=== PATIENT | female | born 1935 | race Caucasian/White ===

== ENCOUNTER 2016-08-26 13:57 | Emergency (ER) | payer MEDICARE ==
[~2016-08-26] VITALS: Ht 167.6 cm; Wt 45.0 kg
[~2016-08-26 13:57] MED LIST: BACT800T5 PO; DOXY100C PO; DYAZ37.5 PO; FAMO20TA2 PO; HYDR-3533 PO; PLAV75TA29 PO; SYNT25TA PO; TOPA50TA7 PO; WARF-18 PO
[2016-08-26 14:18] VITALS: BP 125/68; PULSE 79; RESP 16; TEMP 97.5; O2SAT 99
[2016-08-26] MEDS ORDERED: SODIUM CHLORIDE 0.9% FLUSH 5 ML FLUSH IVF PRN (14:30)
[2016-08-26 14:32] VITALS: O2SAT 97
[2016-08-26 14:34] LABS: AUTOMATED NEUTROPHIL # 5.9 TH/MM3 (1.8-7.7); BASOPHIL # 0.1 TH/MM3 (0-0.2); BASOPHIL % 0.8 % (0.0-2.0); EOSINOPHIL # 0.1 TH/MM3 (0-0.4); EOSINOPHIL % 0.9 % (0.0-4.0); HEMO FLAGS DIFF FINAL; LYMPH % 25.6 % (9.0-44.0); LYMPHOCYTE # 2.5 TH/MM3 (1.0-4.8); MEAN CELL VOLUME 89.5 FL (80.0-100.0); MEAN CORPUSCULAR HEMOGLOBIN 29.5 PG (27.0-34.0); MONO % 10.1 % (0.0-8.0); NEUT % 62.6 % (16.0-70.0); PLATELET COUNT 284 TH/MM3 (150-450); RED BLOOD COUNT 5.14 MIL/MM3 (4.00-5.30); RED CELL DISTRIBUTION WIDTH 12.3 % (11.6-17.2); WHITE BLOOD COUNT 9.6 TH/MM3 (4.0-11.0)
[2016-08-26 14:39] LABS: BLOOD, URINE NEG (NEG); GLUCOSE,URINE NEG (NEG); KETONE, URINE NEG (NEG); NITRITE,URINE NEG (NEG)
[2016-08-26 14:40] LABS: METHOD OF COLLECTION CLEAN CATCH; URINE COLOR YELLOW (YELLW/STRAW)
[2016-08-26 14:42] LABS: CHLORIDE 106 MEQ/L (98-107); POTASSIUM 3.4 MEQ/L (3.5-5.1); SODIUM (NA) 139 MEQ/L (136-145)
[2016-08-26 14:43] LABS: BACTERIA, URINE OCC /hpf; COMMENT (UR) CULT NOT INDICATED; CULTURE IF INDICATED CULT NOT INDICATED; SQUAMOUS EPITHELIAL CELL URINE 0-5 /hpf (0-5)
--- NOTE | 2016-08-26 14:44 | PD ---
HPI . Right side pain Chief Complaint: Abdominal Pain Time Seen by Provider: 14:14 Travel History International Travel<30 days: No Contact w/Intl Traveler<30days: No Traveled to known affect area: No History of Present Illness HPI Patient presents with right flank pain which has been present for about 3 days. She saw her PMD for same today and was sent to us for further evaluation. She describes a stabbing, fleeting pain in her right flank. She states that the pain takes her breath away. Otherwise, she is not short of breath. She has noted no exacerbating or relieving factors. She states that she took a Lortab earlier today with no relief of her symptoms. PFSH Past Medical History Hx Anticoagulant Therapy: Yes (COUMADIN; PLAVIX) Cancer: No Cardiovascular Problems: Yes (STENT, PAST DVT, PERRY? ) High Cholesterol: Yes Diabetes: No Diminished Hearing: No Endocrine: Yes Gastrointestinal Disorders: Yes (NOLASCO'S ESOPHOGUS) Genitourinary: No Hepatitis: No Hiatal Hernia: No Hypertension: Yes Immune Disorder: Yes (LUPUS) Musculoskeletal: No Neurologic: Yes (BACK INJURY 2012) Psychiatric: Yes (ANXIETY AT TIMES/SITUATIONAL) Reproductive: No Respiratory: No Immunizations Current: Yes Thyroid Disease: Yes ?: Not Past Surgical History Abdominal Surgery: Yes (CHOLECYSTECTOMY/" LOTS OF ABD SURGERIES"-UNKNOWN) AICD: No Appendectomy: Yes Cholecystectomy: Yes Eye Surgery: Yes (BILAT CATARACTS) Gynecologic Surgery: Yes (HYSTERECTOMY/HEMMORROIDECTOMY) Hysterectomy: Yes (1966) Joint Replacement: No Pacemaker: No Other Surgery: Yes (3 BOWEL SX. , ESOPHAGEAL SX., GROIN AREA STENTS DUE TO INTESTINAL BLOCKAGES) Social History Alcohol Use: No Tobacco Use: No Substance Use: No Allergies-Medications (Allergen,Severity, Reaction): Coded Allergies: No Known Allergies (Unverified , 08/26/16) Reported Meds & Prescriptions Reported Meds & Active Scripts Active Warfarin 2.5 Mg Tab 2.5 Mg PO DAILY Reported Topamax (Topiramate) 50 Mg Tab 25 Mg PO BID Plavix (Clopidogrel Bisulfate) 75 Mg Tab 75 Mg PO DAILY Review of Systems Respiratory: Positive: Shortness of Breath (shortness of breath only when she has the pain in the right flank area) Gastrointestinal: Positive: Other (right flank pain) Physical Exam Narrative GENERAL: Elderly woman who does not appear to be in any acute distress. SKIN: Warm and dry. HEAD: Atraumatic. Normocephalic. EYES: Pupils equal and round. ENT: No nasal bleeding or discharge. Mucous membranes pink and moist. NECK: Trachea midline. CARDIOVASCULAR: Regular rate and rhythm. Heart sounds are normal. RESPIRATORY: No accessory muscle use. Lungs are clear with full air movement throughout. She denies tenderness to palpation of her right chest wall although she does wince when I palpate it. GASTROINTESTINAL: Abdomen soft, non-tender, nondistended. MUSCULOSKELETAL: No obvious deformities. No edema. NEUROLOGICAL: Awake and alert. No obvious cranial nerve deficits. Motor grossly within normal limits. Normal speech. PSYCHIATRIC: Appropriate mood and affect; insight and judgment normal. Data Data Last Documented VS Vital Signs Date Time Temp Pulse Resp B/P Pulse Ox O2 Delivery O2 Flow Rate FiO2 08/26/16 14:32 97 Room Air 08/26/16 14:18 97.5 79 16 125/68 Orders Complete Blood Count With Diff (08/26/16 14:16) Comprehensive Metabolic Panel (08/26/16 14:16) Lipase (08/26/16 14:16) Lactic Acid (08/26/16 14:16) Prothrombin Time / Inr (Pt) (08/26/16 14:16) Urinalysis - C+S If Indicated (08/26/16 14:16) Iv Access Insert/Monitor (08/26/16 14:16) Ecg Monitoring (08/26/16 14:16) Oximetry (08/26/16 14:16) NPO (08/26/16 14:16) Sodium Chloride 0.9% Flush (Ns Flush) (08/26/16 14:30) Electrocardiogram (08/26/16 14:16) Ct Pulmonary Angiogram (08/26/16 14:34) Morphine Inj (Morphine Inj) (08/26/16 14:45) Ondansetron Inj (Zofran Inj) (08/26/16 14:45) Cta Abd/Pel W Iv Contrast W 3d (08/26/16 14:17) Iohexol 350 Inj (Omnipaque 350 Inj) (08/26/16 15:46) Labs Laboratory Tests Test 08/26/16 14:25 White Blood Count 9.6 TH/MM3 Red Blood Count 5.14 MIL/MM3 Hemoglobin 15.2 GM/DL Hematocrit 46.0 % Mean Corpuscular Volume 89.5 FL Mean Corpuscular Hemoglobin 29.5 PG Mean Corpuscular Hemoglobin 33.0 % Concent Red Cell Distribution Width 12.3 % Platelet Count 284 TH/MM3 Mean Platelet Volume 7.6 FL Neutrophils (%) (Auto) 62.6 % Lymphocytes (%) (Auto) 25.6 % Monocytes (%) (Auto) 10.1 % Eosinophils (%) (Auto) 0.9 % Basophils (%) (Auto) 0.8 % Neutrophils # (Auto) 5.9 TH/MM3 Lymphocytes # (Auto) 2.5 TH/MM3 Monocytes # (Auto) 1.0 TH/MM3 Eosinophils # (Auto) 0.1 TH/MM3 Basophils # (Auto) 0.1 TH/MM3 CBC Comment DIFF FINAL Differential Comment Prothrombin Time 14.7 SEC Prothromb Time International 1.3 RATIO Ratio Urine Collection Type CLEAN CATCH Urine Color YELLOW Urine Turbidity CLEAR Urine pH 5.0 Urine Specific [place] 1.019 Urine Protein NEG mg/dL Urine Glucose (UA) NEG mg/dL Urine Ketones NEG mg/dL Urine Occult Blood NEG Urine Nitrite NEG Urine Bilirubin NEG Urine Leukocyte Esterase SMALL Urine WBC 3-5 /hpf Urine Squamous Epithelial 0-5 /hpf Cells Urine Bacteria OCC /hpf Urine Yeast (Budding) FEW Microscopic Urinalysis Comment CULT NOT INDICATED Urine Collection Time 14:25 Sodium Level 139 MEQ/L Potassium Level 3.4 MEQ/L Chloride Level 106 MEQ/L Carbon Dioxide Level 24.5 MEQ/L Anion Gap 9 MEQ/L Blood Urea Nitrogen 25 MG/DL Creatinine 1.00 MG/DL Estimat Glomerular Filtration 53 ML/MIN Rate Random Glucose 67 MG/DL Lactic Acid Level 0.9 mmol/L Calcium Level 9.0 MG/DL Total Bilirubin 0.2 MG/DL Aspartate Amino Transf 21 U/L (AST/SGOT) Alanine Aminotransferase 21 U/L (ALT/SGPT) Alkaline Phosphatase 61 U/L Total Protein 7.8 GM/DL Albumin 3.8 GM/DL Lipase 238 U/L [facility] Medical Decision Making Medical Screen Exam Complete: Yes Emergency Medical Condition: Yes Medical Record Reviewed: Yes (this patient has a history of mesenteric ischemia which is chronic in nature. She also has a history of a previous DVT and SLE. She is chronically anticoagulated.) Interpretation(s) EKG shows a sinus rhythm with a ventricular rate of 78. No ST segment elevation or depression. Differential Diagnosis Differential diagnosis of flank pain includes but is not limited to kidney stone , pyelonephritis, musculoskeletal pain, PE, mesenteric ischemia Narrative Course Patient presents for evaluation of right flank pain. She has been on chronic anticoagulation but was recently off of that because of the procedure. She is now back on her warfarin. However, she now has flank pain. Her INR per her doctor's office was reportedly subtherapeutic at 1.5. CBC & BMP Diagram 08/26/16 14:25 LFTs are normal. Lactic acid is normal at 0.9. UA is suggestive of UTI with positive leukocyte esterase, occasional bacteria and 3-5 white blood cells. Her care is being talked over to the oncoming doctor pending her CT exams. Diagnosis Primary Impression: Right flank pain Additional Impression: UTI (urinary tract infection) Qualified Code: N30.00 - Acute cystitis without hematuria Aure Camacho MD Aug 26, 2016 14:44
[2016-08-26 14:45] LABS: INTERNATIONAL NORMALIZED RATIO 1.3 RATIO; PROTHROMBIN TIME - PATIENT 14.7 SEC (9.8-11.6)
[2016-08-26] MEDS ORDERED: ONDANSETRON HCL 4 MG/2 ML VIAL IV PUSH ONE (14:45)
[2016-08-26] MEDS ORDERED: MORPHINE SULFATE 4 MG/ML INJ IV ONE (14:45)
[2016-08-26 14:46] LABS: ANION GAP 9 MEQ/L (5-15); BICARBONATE 24.5 MEQ/L (21.0-32.0); BLOOD UREA NITROGEN 25 MG/DL (7-18)
[2016-08-26 14:49] LABS: ALT (GPT) 21 U/L (10-53); AST (GOT) 21 U/L (15-37); GLOMERULAR FILTRATION RATE 53 ML/MIN (>89)
[2016-08-26 14:50] LABS: TOTAL BILIRUBIN ADULT 0.2 MG/DL (0.2-1.0)
[2016-08-26 14:52] LABS: ALKALINE PHOSPHATASE 61 U/L (45-117)
[2016-08-26] MEDS ORDERED: IOHEXOL 350 MG/ML 10 ML VIAL (for RAD DIAG) IV ONE (15:46)
[2016-08-26] MEDS ORDERED: cefTRIAXone INJ 1,000 MG in SODIUM CHLORIDE 0.9% INJ 100 ML IV ONE (16:00)
--- NOTE | 2016-08-26 16:05 | RADHPO ---
EXAM DATE/TIME: 08/26/2016 15:16 [facility] COMPARISON: No previous studies available for comparison. INDICATIONS : Right side chest pain. Evaluate embolism. IV CONTRAST: 100 cc Omnipaque 350 (iohexol) IV ; Cumulative dose for multiple exams. RADIATION DOSE: 5.61 CTDIvol (mGy) ; Reconstructed from previous dataset MEDICAL HISTORY : Lupus. SURGICAL HISTORY : Cholecystectomy. Hysterectomy.Small bowel surgeries. Stents. ENCOUNTER: Initial ACUITY: 3 days PAIN SCALE: 8/10 LOCATION: Right middle abdomen TECHNIQUE: Volumetric scanning of the chest was performed using a pulmonary embolism protocol MIP images were re constructed. Using automated exposure control and adjustment of the mA and/or kV according to patien t size, radiation dose was kept as low as reasonably achievable to obtain optimal diagnostic quality images. FINDINGS: No filling defects identified in the pulmonary arteries to suggest pulmonary embolic disease. There i s some scattered parenchymal opacity in the lungs predominantly in the right middle lobe and right mary ng base which could represent some mild inflammatory changes. There is also scattered parenchymal sca rring especially at the apices. No pleural or pericardial effusion. No adenopathy. No acute findings in the upper abdomen. CONCLUSION: 1. Negative for pulmonary moderate disease. Scattered subsegmental opacity right middle lobe and righ t lower lobe that could represent a mild bronchopneumonia. Biapical abnormalities are probably postin flammatory. Boogie Chopra MD on August 26, 2016 at 15:57 Board Certified Radiologist. This report was verified electronically.
[2016-08-26 16:15] VITALS: BP 108/67; PULSE 94; RESP 18; O2SAT 98
--- NOTE | 2016-08-26 16:19 | PD ---
Physical Exam Narrative Patient was seen by ED physician and signed out to me. Data Data Last Documented VS Vital Signs Date Time Temp Pulse Resp B/P Pulse Ox O2 Delivery O2 Flow Rate FiO2 08/26/16 16:15 94 18 108/67 98 Room Air 08/26/16 14:18 97.5 Orders Complete Blood Count With Diff (08/26/16 14:16) Comprehensive Metabolic Panel (08/26/16 14:16) Lipase (08/26/16 14:16) Lactic Acid (08/26/16 14:16) Prothrombin Time / Inr (Pt) (08/26/16 14:16) Urinalysis - C+S If Indicated (08/26/16 14:16) Iv Access Insert/Monitor (08/26/16 14:16) Ecg Monitoring (08/26/16 14:16) Oximetry (08/26/16 14:16) NPO (08/26/16 14:16) Sodium Chloride 0.9% Flush (Ns Flush) (08/26/16 14:30) Electrocardiogram (08/26/16 14:16) Ct Pulmonary Angiogram (08/26/16 14:34) Morphine Inj (Morphine Inj) (08/26/16 14:45) Ondansetron Inj (Zofran Inj) (08/26/16 14:45) Cta Abd/Pel W Iv Contrast W 3d (08/26/16 14:17) Iohexol 350 Inj (Omnipaque 350 Inj) (08/26/16 15:46) Ceftriaxone Inj (Rocephin Inj) (08/26/16 16:00) Levofloxacin (Levaquin) (08/26/16 16:30) Labs Laboratory Tests Test 08/26/16 14:25 White Blood Count 9.6 TH/MM3 Red Blood Count 5.14 MIL/MM3 Hemoglobin 15.2 GM/DL Hematocrit 46.0 % Mean Corpuscular Volume 89.5 FL Mean Corpuscular Hemoglobin 29.5 PG Mean Corpuscular Hemoglobin 33.0 % Concent Red Cell Distribution Width 12.3 % Platelet Count 284 TH/MM3 Mean Platelet Volume 7.6 FL Neutrophils (%) (Auto) 62.6 % Lymphocytes (%) (Auto) 25.6 % Monocytes (%) (Auto) 10.1 % Eosinophils (%) (Auto) 0.9 % Basophils (%) (Auto) 0.8 % Neutrophils # (Auto) 5.9 TH/MM3 Lymphocytes # (Auto) 2.5 TH/MM3 Monocytes # (Auto) 1.0 TH/MM3 Eosinophils # (Auto) 0.1 TH/MM3 Basophils # (Auto) 0.1 TH/MM3 CBC Comment DIFF FINAL Differential Comment Prothrombin Time 14.7 SEC Prothromb Time International 1.3 RATIO Ratio Urine Collection Type CLEAN CATCH Urine Color YELLOW Urine Turbidity CLEAR Urine pH 5.0 Urine Specific [place] 1.019 Urine Protein NEG mg/dL Urine Glucose (UA) NEG mg/dL Urine Ketones NEG mg/dL Urine Occult Blood NEG Urine Nitrite NEG Urine Bilirubin NEG Urine Leukocyte Esterase SMALL Urine WBC 3-5 /hpf Urine Squamous Epithelial 0-5 /hpf Cells Urine Bacteria OCC /hpf Urine Yeast (Budding) FEW Microscopic Urinalysis Comment CULT NOT INDICATED Urine Collection Time 14:25 Sodium Level 139 MEQ/L Potassium Level 3.4 MEQ/L Chloride Level 106 MEQ/L Carbon Dioxide Level 24.5 MEQ/L Anion Gap 9 MEQ/L Blood Urea Nitrogen 25 MG/DL Creatinine 1.00 MG/DL Estimat Glomerular Filtration 53 ML/MIN Rate Random Glucose 67 MG/DL Lactic Acid Level 0.9 mmol/L Calcium Level 9.0 MG/DL Total Bilirubin 0.2 MG/DL Aspartate Amino Transf 21 U/L (AST/SGOT) Alanine Aminotransferase 21 U/L (ALT/SGPT) Alkaline Phosphatase 61 U/L Total Protein 7.8 GM/DL Albumin 3.8 GM/DL Lipase 238 U/L [facility] Supervised Visit with DAVID: No Interpretation(s) Last Impressions CT Angiography 08/26/16 1434 Signed Impressions: Service Date/Time: Friday, August 26, 2016 15:16 - CONCLUSION: 1. Negative for pulmonary moderate disease. Scattered subsegmental opacity right middle lobe and right lower lobe that could represent a mild bronchopneumonia. Biapical abnormalities are probably postinflammatory. Boogie Chopra MD 1641 PM. CBC within normal limit. Potassium 3.4. BUN 25. Lactic acid 0.9. INR 1.3. UA positive for bacteria. Negative for WBC. 1716 p.m. CTA abdomen pelvis negative acute pathology. Diagnosis Primary Impression: Pneumonia Qualified Code: J18.1 - Pneumonia of right lower lobe due to infectious organism Additional Impression: Pleurisy Patient Instructions: General Instructions Additional Instruction: Take medications as directed. Follow-up with personal physician. Return if persistent problem or worse. Check PT/INR while on antibiotic. Med/Other Pt SpecificInfo: Prescription(s) given Scripts Hydrocodone-Acetaminophen ([place])5-325 mg Tab1 Tab PO Q6H PRN (PAIN) #20 TAB Ref 0 Prov:Brandon Castellanos MD 08/26/16 Levofloxacin (Levaquin)750 Mg Ipo581 Mg PO DAILY #10 TAB Ref 0 Prov:Brandon Castellanos MD 08/26/16 Disposition: 01 DISCHARGE HOME Condition: Stable Brandon Castellanos MD Aug 26, 2016 16:19
[2016-08-26] MEDS ORDERED: LEVOFLOXACIN 750 MG TAB PO ONE (16:30)
--- NOTE | 2016-08-26 16:56 | RADHPO ---
EXAM DATE/TIME: 08/26/2016 15:16 [facility] COMPARISON: CT PULMONARY ANGIOGRAM, August 26, 2016, 15:16. INDICATIONS : Right side abdomen pain. Evaluate ischemic bowel. IV CONTRAST: 100 cc Omnipaque 350 (iohexol) IV ; Cumulative dose for multiple exams. ORAL CONTRAST: No oral contrast ingested. RADIATION DOSE: 5.61 CTDIvol (mGy) ; Reconstructed from previous dataset MEDICAL HISTORY : Lupus. SURGICAL HISTORY : Hysterectomy. Cholecystectomy.Small bowel surgeries. Stents. ENCOUNTER: Initial ACUITY: 3 days PAIN SCALE: 8/10 LOCATION: Right middle abdomen TECHNIQUE: Volumetric scanning was performed using a multi-row detector CT scanner. The data was post processed with a variety of visualization algorithms including full volume maximum intensity projection, multi -planar sliding thin slab reformation, curved planar reformation, and surface rendering techniques. Using automated exposure control and adjustment of the mA and/or kV according to patient size, radiat ion dose was kept as low as reasonably achievable to obtain optimal diagnostic quality images. FINDINGS: Examination of the lung bases demonstrates nodular opacity at the right base measuring [address] scan in 3 months is recommended. The liver and spleen are normal in size and no focal defects are identified. The gallbladder is absent. The pancreas demonstrates normal contour without evidence of mass or ductal dilatation. The intrahepatic ducts and common bile duct are prominent which may reflec t reservoir effect though the common duct measures 1.8 cm which is typically beyond this size criteri a. The adrenal glands and kidneys appear normal bilaterally. No hydronephrosis or mass lesions are id entified. Examination of the pelvis demonstrates no evidence of free fluid or pelvic mass. No abnorma lly enlarged inguinal or retroperitoneal lymph nodes are present. The bladder is unremarkable. There is diverticulosis without evidence of diverticulitis. The aorta is normal in caliber. There is no evidence of aneurysm or dissection. The renal artery orig ins are patent bilaterally. The celiac axis and superior mesenteric artery origins are also patent. CONCLUSION: 1. No evidence of acute abdominal or pelvic process. No masses are identified. No evidence of mesente erasto ischemia with patent stent with only mild intimal hyperplasia and 20-30% narrowing 2. Diverticulosis without evidence of diverticulitis. Henok Schaefer MD on August 26, 2016 at 16:23 Board Certified Radiologist. This report was verified electronically.
[2016-08-26] MEDS ORDERED: LEVA750T PO (17:20)
[2016-08-26] MEDS ORDERED: NORC5TAB PO (17:21)
[2016-08-27] MEDS ORDERED: HYDR-3533 PO (09:42)
--- NOTE | 2016-08-28 07:06 | EKG ---
Date Performed: 08/26/2016 Time Performed: 14:35:46 PTAGE: 81 years EKG: Sinus rhythm Possible left atrial abnormality Left axis deviation Possible septal infarct - age undetermined Abno rmal ECG PREVIOUS TRACING : 08/04/2015 18.49 Compared to prior tracing no significant change DOCTOR: Juan C Allan Interpretating Date/Time 08/28/2016 07:02:42
[2016-09-04] MEDS ORDERED: OXYC-395 PO (10:14)
[2016-09-08] MEDS ORDERED: PANT40TA3 PO ×2 (09:26→16:14)
[2016-09-08] MEDS ORDERED: PRED-503 PO (09:26)
[2016-09-22] MEDS ORDERED: TOPA50TA7 PO (12:01)
[2016-09-23] MEDS ORDERED: WARF-18 PO (10:17)
[2016-09-23] MEDS ORDERED: HYDR-3533 PO (10:17)
[2016-09-23] MEDS ORDERED: MEDR4PAK PO (10:17)
[2016-09-28] MEDS ORDERED: PLAV75TA29 PO (15:05)
[2016-10-05] MEDS ORDERED: AMIT25TA9 PO (14:16)
[2016-10-16] MEDS ORDERED: HYDR-3533 PO (11:02)
[2016-10-20] MEDS ORDERED: AMIT50TA3 PO (14:45)
[2016-11-13] MEDS ORDERED: HYDR-3533 PO (09:47)
[2016-11-13] MEDS ORDERED: AMIT50TA3 PO (09:47)
[2016-11-13] MEDS ORDERED: WARF-58 PO (09:49)
[2016-11-16] MEDS ORDERED: LEVO25TA4 PO (16:10)
[2016-12-18] MEDS ORDERED: HYDR-3533 PO (14:48)
[2017-01-12] MEDS ORDERED: TOPA50TA7 PO (16:28)
== END 2016-08-26 18:14 | disposition home or self-care (01) ==
LOC: PHED 13:57
DX: N39.0 Urinary tract infection, site not specified (principal); R10.31 Right lower quadrant pain; R94.31 Abnormal electrocardiogram [ECG] [EKG]; R06.02 Shortness of breath; E78.00 Pure hypercholesterolemia, unspecified; I10 Essential (primary) hypertension; M32.9 Systemic lupus erythematosus, unspecified; E07.9 Disorder of thyroid, unspecified; Z79.01 Long term (current) use of anticoagulants
CPT/HCPCS: 71275; 74174; 80053; 81001; 83605; 83690; 85025; 85610; 93005; 96365; 96375; 99284; J0696; J2270; J2405; Q9967

== ENCOUNTER 2017-01-15 16:44 | Inpatient (IN) | payer MEDICARE ==
[2017-01-15] VITALS (11 sets, daily range): BP systolic 123–173; BP diastolic 72–91; PULSE 104–117; RESP 18–29; TEMP 94.5–97.8; O2SAT 88–100
[~2017-01-15] VITALS: Ht 167.6 cm; Wt 56.0 kg
[~2017-01-15 16:44] MED LIST changes: +ALBUMIN HUMAN 25% 12.5 GM/50 ML BAGP IV ONE; +AMIT50TA3 PO; -BACT800T5 PO; -DOXY100C PO; -DYAZ37.5 PO; -FAMO20TA2 PO; +LACTATED RINGER'S 1000 ML INJ 2,000 ML IV ONE; +LEVO25TA4 PO; +MEDR4PAK PO; +NEOSTIGMINE 3 MG/3 ML SYR IV ONE; +NORMOSOL R INJ 4,000 ML IV ONE; +ONDANSETRON HCL 4 MG/2 ML VIAL IV PUSH ONE; +PANT40TA3 PO; +PHENYLEPH/NS 1000 MCG/10 ML SYR IV ONE; +PHENYLEPHRINE HCL 10 MG/ML VIAL IV ONE; +PROPOFOL 200 MG/20 ML AMP IV ONE; +SODIUM CHLORID 0.9% 500 ML INJ 500 ML IV ONE; -SYNT25TA PO; +VECURONIUM BROMIDE 10 MG VIAL IV ONE; -WARF-18 PO; +WARF-58 PO; +ePHEDrine/NS 25 MG/5 ML SYR IV ONE
[2017-01-15] MEDS ORDERED: SODIUM CHLOR 0.9% 1000 ML INJ 1,000 ML IV SCH ×2 (17:12→19:01)
--- NOTE | 2017-01-15 17:14 | PD ---
HPI Chief Complaint: Abdominal Pain Time Seen by Provider: 17:14 Travel History International Travel<30 days: No Contact w/Intl Traveler<30days: No Traveled to known affect area: No History of Present Illness HPI 81-year-old female with a history of COPD, lupus, DVT anticoagulated on Coumadin , hypothyroidism, hyperlipidemia, chronic back pain presents to the emergency department for evaluation of abdominal pain that began about 1 PM this afternoon. The patient states that she has a history of multiple bowel obstructions and her symptoms feel similar. She complains of lower abdominal pain and nausea. States that she did have some constipation several days ago but over the last 2 days has had bowel movements. States she had multiple bowel movements today which were formed. She denies fever, chills, vomiting, diarrhea, chest pain, shortness of breath, dysuria. Prior abdominal surgeries include hysterectomy, oophorectomy, lysis of adhesions, cholecystectomy, appendectomy, fundoplication, 3 surgeries for obstruction including partial colectomy. PFSH Past Medical History Hx Anticoagulant Therapy: Yes (COUMADIN; PLAVIX) Cancer: No Cardiovascular Problems: Yes (STENT, PAST DVT, PERRY? ) High Cholesterol: Yes Diabetes: No Diminished Hearing: No Endocrine: Yes Gastrointestinal Disorders: Yes (NOLASCO'S ESOPHOGUS) Genitourinary: No Hepatitis: No Hiatal Hernia: No Hypertension: No Immune Disorder: Yes (LUPUS) Musculoskeletal: No Neurologic: Yes (BACK INJURY 2012) Psychiatric: Yes (ANXIETY AT TIMES/SITUATIONAL) Reproductive: No Respiratory: No Immunizations Current: Yes Thyroid Disease: Yes ?: Not Past Surgical History Abdominal Surgery: Yes (CHOLECYSTECTOMY/" LOTS OF ABD SURGERIES"-UNKNOWN) AICD: No Appendectomy: Yes Cholecystectomy: Yes Eye Surgery: Yes (BILAT CATARACTS) Gynecologic Surgery: Yes (HYSTERECTOMY/HEMMORROIDECTOMY) Hysterectomy: Yes (1967) Joint Replacement: No Pacemaker: No Other Surgery: Yes (3 BOWEL SX. , ESOPHAGEAL SX., GROIN AREA STENTS DUE TO INTESTINAL BLOCKAGES) Social History Alcohol Use: No Tobacco Use: No Substance Use: No Allergies-Medications (Allergen,Severity, Reaction): Coded Allergies: No Known Allergies (Unverified , 01/05/17) Reported Meds & Prescriptions Reported Meds & Active Scripts Active Topamax (Topiramate) 50 Mg Tab 1 Tab PO BID Lortab (Hydrocodone-Acetaminophen) 5-325 Mg Tab 1 Tab PO Q6H PRN Levothyroxine (Levothyroxine Sodium) 25 Mcg Tab 25 Mcg PO DAILY Warfarin 3 Mg Tab 3 Mg PO DAILY Amitriptyline (Amitriptyline HCl) 50 Mg Tab 50 Mg PO HS Plavix (Clopidogrel Bisulfate) 75 Mg Tab 75 Mg PO DAILY Pantoprazole (Pantoprazole Sodium) 40 Mg Tab 40 Mg PO DAILY Review of Systems Except as stated in HPI: all other systems reviewed are Neg Physical Exam Narrative GENERAL: Well-nourished and well-developed female patient in no acute distress. SKIN: Warm and dry. HEAD: Normocephalic and atraumatic. EYES: No injection, drainage, or hyphema noted. PERRLA. EOMI. ENT: No nasal drainage noted. Oropharynx is clear. NECK: Supple and the trachea is midline. CARDIOVASCULAR: Regular rate and rhythm. RESPIRATORY: Breath sounds are equal bilaterally with no accessory muscle use, wheezing, rhonchi, or crackles. GASTROINTESTINAL: Abdomen is slightly distended and is hard with generalized tenderness worse in the lower abdomen. MUSCULOSKELETAL: No obvious deformities, swelling, cyanosis, or ecchymosis is present throughout the upper and lower extremities. Patient has full range of motion without any signs of neurovascular compromise. NEUROLOGICAL: Awake, alert, and oriented. Normal speech and gait. Cranial nerves are grossly intact. Data Data Last Documented VS Vital Signs Date Time Temp Pulse Resp B/P Pulse Ox O2 Delivery O2 Flow Rate FiO2 01/15/17 19:04 113 20 160/88 100 Room Air 01/15/17 17:06 97.8 Orders Complete Blood Count With Diff (01/15/17 17:12) Comprehensive Metabolic Panel (01/15/17 17:12) Lipase (01/15/17 17:12) Prothrombin Time / Inr (Pt) (01/15/17 17:12) Act Partial Throm Time (Ptt) (01/15/17 17:12) Urinalysis - C+S If Indicated (01/15/17 17:12) Abdomen, Flat & Upright (01/15/17 ) Ct Abd/Pel W Iv Contrast(Rout) (01/15/17 17:12) Iv Access Insert/Monitor (01/15/17 17:12) Ecg Monitoring (01/15/17 17:12) Oximetry (01/15/17 17:12) Morphine Inj (Morphine Inj) (01/15/17 17:15) Ondansetron Inj (Zofran Inj) (01/15/17 17:15) Sodium Chlor 0.9% 1000 Ml Inj (Ns 1000 M (01/15/17 17:12) Sodium Chloride 0.9% Flush (Ns Flush) (01/15/17 17:15) Electrocardiogram (01/15/17 17:12) Lactic Acid Sepsis Protocol (01/15/17 17:26) Piperacil-Tazo 4.5 Gm Premix (Zosyn 4.5 (01/15/17 19:00) Iodixanol 320 Inj (Rad Ct) (Visipaque 32 (01/15/17 19:01) Sodium Chlor 0.9% 1000 Ml Inj (Ns 1000 M (01/15/17 19:01) NPO (01/15/17 19:03) Type And Screen (01/15/17 19:14) Pantoprazole Inj (Protonix Inj) (01/15/17 19:30) Fresh Frozen Plasma (Ffp) (01/15/17 19:27) Blood Product Administration .UPON TRANSFUSION (01/15/17 19:27) Sodium Chlor 0.9% 250 Ml Inj (Ns 250 Ml (01/15/17 19:30) Diphenhydramine Inj (Benadryl Inj) (01/15/17 19:30) Acetaminophen (Tylenol) (01/15/17 19:30) Zoya-Gastric Tube Insert/Mon (01/15/17 19:29) Urinary Catheter Insert/Apply (01/15/17 19:29) Admit Order (Ed Use Only) (01/15/17 19:44) Labs Laboratory Tests Test 01/15/17 01/15/17 01/15/17 01/15/17 17:15 17:30 19:27 19:45 White Blood Count 15.5 TH/MM3 Red Blood Count 5.60 MIL/MM3 Hemoglobin 16.2 GM/DL Hematocrit 50.0 % Mean Corpuscular Volume 89.3 FL Mean Corpuscular Hemoglobin 29.0 PG Mean Corpuscular Hemoglobin 32.4 % Concent Red Cell Distribution Width 13.3 % Platelet Count 256 TH/MM3 Mean Platelet Volume 8.4 FL Neutrophils (%) (Auto) 91.3 % Lymphocytes (%) (Auto) 5.3 % Monocytes (%) (Auto) 2.7 % Eosinophils (%) (Auto) 0.4 % Basophils (%) (Auto) 0.3 % Neutrophils # (Auto) 14.2 TH/MM3 Lymphocytes # (Auto) 0.8 TH/MM3 Monocytes # (Auto) 0.4 TH/MM3 Eosinophils # (Auto) 0.1 TH/MM3 Basophils # (Auto) 0.0 TH/MM3 CBC Comment AUTO DIFF Differential Total Cells 100 Counted Neutrophils % (Manual) 70 % Band Neutrophils % 23 % Lymphocytes % 5 % Eosinophils % 1 % Basophils % 1 % Neutrophils # (Manual) 14.4 TH/MM3 Nucleated Red Blood Cells 1 /100 WBC Differential Comment FINAL DIFF MANUAL Toxic Vacuolation PRESENT Platelet Estimate NORMAL Platelet Morphology Comment NORMAL Prothrombin Time 37.7 SEC Prothromb Time International 3.2 RATIO Ratio Activated Partial 42.9 SEC Thromboplast Time Sodium Level 138 MEQ/L Potassium Level 3.7 MEQ/L Chloride Level 105 MEQ/L Carbon Dioxide Level 20.8 MEQ/L Anion Gap 12 MEQ/L Blood Urea Nitrogen 33 MG/DL Creatinine 1.36 MG/DL Estimat Glomerular Filtration 38 ML/MIN Rate Random Glucose 175 MG/DL Calcium Level 9.6 MG/DL Total Bilirubin 0.7 MG/DL Aspartate Amino Transf 99 U/L (AST/SGOT) Alanine Aminotransferase 52 U/L (ALT/SGPT) Alkaline Phosphatase 104 U/L Total Protein 8.3 GM/DL Albumin 4.2 GM/DL Lipase 6829 U/L Lactic Acid Level 2.8 mmol/L Blood Bank Comment Urine Color YELLOW Urine Turbidity CLEAR Urine pH 5.0 Urine Specific [place] 1.039 Urine Protein TRACE mg/dL Urine Glucose (UA) NEG mg/dL Urine Ketones NEG mg/dL Urine Occult Blood NEG Urine Nitrite NEG Urine Bilirubin NEG Urine Urobilinogen LESS THAN 2.0 MG/DL Urine Leukocyte Esterase NEG Urine RBC LESS THAN 1 /hpf Urine WBC LESS THAN 1 /hpf Urine Hyaline Casts 7 /lpf Urine Mucus FEW /lpf Microscopic Urinalysis Comment CATH-CULT NOT IND MDM Medical Decision Making Medical Screen Exam Complete: Yes Emergency Medical Condition: Yes Differential Diagnosis Bowel obstruction versus diverticulitis versus colitis versus constipation Narrative Course 81-year-old female presents to the emergency department for evaluation of abdominal pain and nausea began this afternoon. Patient is afebrile, she is tachycardic with a heart rate of 117 bpm. Otherwise vital signs within normal limits. Her abdomen is hard and tender in the lower quadrants. No peritoneal signs. She's had multiple bowel instructions in the past and this feels similar to her. IV access is obtained, labs have been drawn and sent. Patient is placed on cardiac telemetry and pulse oximetry monitoring. Patient is administered IV fluids, Zofran and morphine. CT of the abdomen and pelvis has been ordered and is pending. CBC shows elevated white blood count of 15.5 with 23% band neutrophils. CMP shows acute kidney injury with a creatinine of 1.36, BUN 33, GFR 38. Lipase is significant for elevated at 6829. Lactic acid is 2.8. INR is 3.2. Abdominal x-ray shows suspected pneumoperitoneum. Once findings of pneumoperitoneum were identified care of the patient was signed over to my attending physician Dr. Miller for further management and disposition. Yuli Cruz Jan 15, 2017 17:14
[2017-01-15] MEDS ORDERED: ONDANSETRON HCL 4 MG/2 ML VIAL IVP ONE (17:15)
[2017-01-15] MEDS ORDERED: SODIUM CHLORIDE 0.9% FLUSH 10 ML FLUSH IV FLUSH PRN (17:15)
[2017-01-15] MEDS ORDERED: MORPHINE SULFATE 4 MG/ML INJ IV PUSH ONE ×2 (17:15→20:30)
[2017-01-15 17:47] LABS: AUTOMATED NEUTROPHIL # 14.2 TH/MM3 (1.8-7.7); BASOPHIL % 0.3 % (0.0-2.0); EOSINOPHIL # 0.1 TH/MM3 (0-0.4); EOSINOPHIL % 0.4 % (0.0-4.0); LYMPH % 5.3 % (9.0-44.0); LYMPHOCYTE # 0.8 TH/MM3 (1.0-4.8); MEAN CELL VOLUME 89.3 FL (80.0-100.0); MEAN CORPUSCULAR HGB CONC 32.4 % (32.0-36.0); MONO % 2.7 % (0.0-8.0); NEUT % 91.3 % (16.0-70.0); PLATELET COUNT 256 TH/MM3 (150-450); RED CELL DISTRIBUTION WIDTH 13.3 % (11.6-17.2); WHITE BLOOD COUNT 15.5 TH/MM3 (4.0-11.0)
[2017-01-15 17:52] LABS: HEMO FLAGS AUTO DIFF
[2017-01-15 17:55] LABS: APTT (PATIENT) 42.9 SEC (24.3-30.1); INTERNATIONAL NORMALIZED RATIO 3.2 RATIO; PROTHROMBIN TIME - PATIENT 37.7 SEC (9.8-11.6)
[2017-01-15 18:04] LABS: ALT (GPT) 52 U/L (10-53)
[2017-01-15 18:06] LABS: ALKALINE PHOSPHATASE 104 U/L (45-117); TOTAL BILIRUBIN ADULT 0.7 MG/DL (0.2-1.0)
[2017-01-15 18:15] LABS: ANION GAP 12 MEQ/L (5-15); AST (GOT) 99 U/L (15-37); BICARBONATE 20.8 MEQ/L (21.0-32.0); BLOOD UREA NITROGEN 33 MG/DL (7-18); CHLORIDE 105 MEQ/L (98-107); GLOMERULAR FILTRATION RATE 38 ML/MIN (>89); SODIUM (NA) 138 MEQ/L (136-145)
[2017-01-15 18:16] LABS: POTASSIUM 3.7 MEQ/L (3.5-5.1)
[2017-01-15 18:34] LABS: BANDS 23 % (0-6); BASOPHILS 1 % (0-2); CORRECTED NUCLEATED RBC 1 /100 WBC (0-0); EOSINOPHILS 1 % (0-4); NEUTROPHIL # MANUAL DIFF 14.4 TH/MM3 (1.8-7.7); POLYS (SEG NEUTROPHILS) 70 % (16-70); WBC DIFF SAMPLE 100
[2017-01-15 18:35] LABS: PLATELET ESTIMATE SMEAR NORMAL (NORMAL); PLATELET MORPHOLOGY NORMAL (NORMAL); SCAN/DIFF FINAL DIFF MANUAL; TOXIC VACUOLATION PRESENT (NONE SEEN)
--- NOTE | 2017-01-15 18:50 | RADRPT ---
EXAM DATE/TIME: 01/15/2017 18:11 [facility] COMPARISON: No previous studies available for comparison. INDICATIONS : Abdominal pain, distension for 3 days MEDICAL HISTORY : None. SURGICAL HISTORY : Hysterectomy. Cholecystectomy.Small bowel surgeries. Stents ENCOUNTER: Initial ACUITY: 3 days PAIN SCORE: 10/10 LOCATION: Bilateral abdomen FINDINGS: Supine and upright views the abdomen show a gas distended stomach. Gas filled loops of nondilated lar ge and small bowel observed. Extraluminal air is suspected adjacent to the hepatic flexure. The scoli otic and degenerative spine. Multiple surgical clips throughout the abdomen. No air-fluid levels. CONCLUSION: 1. Gas distended stomach. 2. Suspected pneumoperitoneum. Michael Boo Jr., MD on January 15, 2017 at 18:46 Board Certified Radiologist. This report was verified electronically.
[2017-01-15] MEDS ORDERED: PIPERACIL-TAZO 4.5 GM PREMIX 100 ML IV ONE (19:00)
[2017-01-15] MEDS ORDERED: IODIXANOL 320 MG/ML 10 ML VIAL (for Rad CT) IV ONE (19:01)
--- NOTE | 2017-01-15 19:13 | RADRPT ---
EXAM DATE/TIME: 01/15/2017 18:38 [facility] COMPARISON: CTA ABDOMEN & PELVIS W 3D RECON, August 26, 2016, 15:16. INDICATIONS : Abdominal pain and distention with history of multiple bowel obstructions. IV CONTRAST: 50 cc Visipaque (iodixanol) IV ORAL CONTRAST: No oral contrast ingested. RADIATION DOSE: 9.96 CTDIvol (mGy) MEDICAL HISTORY : Cardiovascular disease. Multiple bowel obstructions SURGICAL HISTORY : Cholecystectomy. Appendectomy.Bowel surgery x3 ENCOUNTER: Initial ACUITY: 3 days PAIN SCALE: 5/10 LOCATION: Bilateral abdomen TECHNIQUE: Volumetric scanning of the abdomen and pelvis was performed. Using automated exposure control and ad justment of the mA and/or kV according to patient size, radiation dose was kept as low as reasonably achievable to obtain optimal diagnostic quality images. DICOM format image data is available electro nically for review and comparison. FINDINGS: There is free air within the retroperitoneum tracking down from the first portion of the duodenum par alleling the path of the duodenum. There is smaller volume pneumoperitoneum observed. The majority of the air is retroperitoneal. The stomach is dilated. Dilated loops of small bowel are seen throughout the abdomen. These are fluid-filled and air-filled. No focal transition point is seen. The colon is normal in caliber. No abscess. Numerous colonic diverticuli without acute inflammation. Distention of the biliary system with the common bile duct reaching a maximum diameter of 15 mm. This is similar to the prior study. The intrahepatic biliary system is dilated which is slightly more pro nounced than the prior exam. The gallbladder is surgically absent. A stent is seen involving the SMA. The kidneys, spleen, adrenal glands, and pancreas are unremarkable CONCLUSION: 1. Retroperitoneal air with smaller volume pneumoperitoneum. There is a dilated stomach as well as di lated loops of small bowel throughout the abdomen without obstructing mass or focal transition point. The retroperitoneal air raises concern for perforated gastric or duodenal ulcer. No abscess observed . The dilated bowel could relate to a distal small bowel obstruction or ileus. 2. Colonic diverticulosis without acute inflammation. 3. Intrahepatic and extra hepatic biliary dilatation. The intrahepatic component is slightly more pro nounced than the prior study. The gallbladder is surgically absent. Michael Boo Jr., MD on January 15, 2017 at 19:03 Board Certified Radiologist. This report was verified electronically.
--- NOTE | 2017-01-15 19:26 | PD ---
Physical Exam Date Seen by Provider: Jan 15, 2017 Time Seen by Provider: 19:14 Narrative The patient is a 81 year-old female was initially evaluated by the mid-level provider, please refer to the initial history, physical, diagnostic evaluation, and treatment modality plan. Data Data Last Documented VS Vital Signs Date Time Temp Pulse Resp B/P Pulse Ox O2 Delivery O2 Flow Rate FiO2 01/15/17 19:04 113 20 160/88 100 Room Air 01/15/17 17:06 97.8 Orders Complete Blood Count With Diff (01/15/17 17:12) Comprehensive Metabolic Panel (01/15/17 17:12) Lipase (01/15/17 17:12) Prothrombin Time / Inr (Pt) (01/15/17 17:12) Act Partial Throm Time (Ptt) (01/15/17 17:12) Urinalysis - C+S If Indicated (01/15/17 17:12) Abdomen, Flat & Upright (01/15/17 ) Ct Abd/Pel W Iv Contrast(Rout) (01/15/17 17:12) Iv Access Insert/Monitor (01/15/17 17:12) Ecg Monitoring (01/15/17 17:12) Oximetry (01/15/17 17:12) Morphine Inj (Morphine Inj) (01/15/17 17:15) Ondansetron Inj (Zofran Inj) (01/15/17 17:15) Sodium Chlor 0.9% 1000 Ml Inj (Ns 1000 M (01/15/17 17:12) Sodium Chloride 0.9% Flush (Ns Flush) (01/15/17 17:15) Electrocardiogram (01/15/17 17:12) Lactic Acid Sepsis Protocol (01/15/17 17:26) Piperacil-Tazo 4.5 Gm Premix (Zosyn 4.5 (01/15/17 19:00) Iodixanol 320 Inj (Rad Ct) (Visipaque 32 (01/15/17 19:01) Sodium Chlor 0.9% 1000 Ml Inj (Ns 1000 M (01/15/17 19:01) NPO (01/15/17 19:03) Type And Screen (01/15/17 19:14) Pantoprazole Inj (Protonix Inj) (01/15/17 19:30) Fresh Frozen Plasma (Ffp) (01/15/17 19:27) Blood Product Administration .UPON TRANSFUSION (01/15/17 19:27) Sodium Chlor 0.9% 250 Ml Inj (Ns 250 Ml (01/15/17 19:30) Diphenhydramine Inj (Benadryl Inj) (01/15/17 19:30) Acetaminophen (Tylenol) (01/15/17 19:30) Zoya-Gastric Tube Insert/Mon (01/15/17 19:29) Urinary Catheter Insert/Apply (01/15/17 19:29) Labs Laboratory Tests Test 01/15/17 01/15/17 01/15/17 17:15 17:30 19:27 White Blood Count 15.5 TH/MM3 Red Blood Count 5.60 MIL/MM3 Hemoglobin 16.2 GM/DL Hematocrit 50.0 % Mean Corpuscular Volume 89.3 FL Mean Corpuscular Hemoglobin 29.0 PG Mean Corpuscular Hemoglobin 32.4 % Concent Red Cell Distribution Width 13.3 % Platelet Count 256 TH/MM3 Mean Platelet Volume 8.4 FL Neutrophils (%) (Auto) 91.3 % Lymphocytes (%) (Auto) 5.3 % Monocytes (%) (Auto) 2.7 % Eosinophils (%) (Auto) 0.4 % Basophils (%) (Auto) 0.3 % Neutrophils # (Auto) 14.2 TH/MM3 Lymphocytes # (Auto) 0.8 TH/MM3 Monocytes # (Auto) 0.4 TH/MM3 Eosinophils # (Auto) 0.1 TH/MM3 Basophils # (Auto) 0.0 TH/MM3 CBC Comment AUTO DIFF Differential Total Cells 100 Counted Neutrophils % (Manual) 70 % Band Neutrophils % 23 % Lymphocytes % 5 % Eosinophils % 1 % Basophils % 1 % Neutrophils # (Manual) 14.4 TH/MM3 Nucleated Red Blood Cells 1 /100 WBC Differential Comment FINAL DIFF MANUAL Toxic Vacuolation PRESENT Platelet Estimate NORMAL Platelet Morphology Comment NORMAL Prothrombin Time 37.7 SEC Prothromb Time International 3.2 RATIO Ratio Activated Partial 42.9 SEC Thromboplast Time Sodium Level 138 MEQ/L Potassium Level 3.7 MEQ/L Chloride Level 105 MEQ/L Carbon Dioxide Level 20.8 MEQ/L Anion Gap 12 MEQ/L Blood Urea Nitrogen 33 MG/DL Creatinine 1.36 MG/DL Estimat Glomerular Filtration 38 ML/MIN Rate Random Glucose 175 MG/DL Calcium Level 9.6 MG/DL Total Bilirubin 0.7 MG/DL Aspartate Amino Transf 99 U/L (AST/SGOT) Alanine Aminotransferase 52 U/L (ALT/SGPT) Alkaline Phosphatase 104 U/L Total Protein 8.3 GM/DL Albumin 4.2 GM/DL Lipase 6829 U/L Lactic Acid Level 2.8 mmol/L Blood Bank Comment [facility] Medical Record Reviewed: Yes Supervised Visit with DAVID: Yes Interpretation(s) EKG reveals sinus tachycardia with occasional supraventricular premature complexes. Laboratory Tests Test 01/15/17 01/15/17 17:15 17:30 White Blood Count 15.5 TH/MM3 Red Blood Count 5.60 MIL/MM3 Hemoglobin 16.2 GM/DL Hematocrit 50.0 % Mean Corpuscular Volume 89.3 FL Mean Corpuscular Hemoglobin 29.0 PG Mean Corpuscular Hemoglobin 32.4 % Concent Red Cell Distribution Width 13.3 % Platelet Count 256 TH/MM3 Mean Platelet Volume 8.4 FL Neutrophils (%) (Auto) 91.3 % Lymphocytes (%) (Auto) 5.3 % Monocytes (%) (Auto) 2.7 % Eosinophils (%) (Auto) 0.4 % Basophils (%) (Auto) 0.3 % Neutrophils # (Auto) 14.2 TH/MM3 Lymphocytes # (Auto) 0.8 TH/MM3 Monocytes # (Auto) 0.4 TH/MM3 Eosinophils # (Auto) 0.1 TH/MM3 Basophils # (Auto) 0.0 TH/MM3 CBC Comment AUTO DIFF Differential Total Cells 100 Counted Neutrophils % (Manual) 70 % Band Neutrophils % 23 % Lymphocytes % 5 % Eosinophils % 1 % Basophils % 1 % Neutrophils # (Manual) 14.4 TH/MM3 Nucleated Red Blood Cells 1 /100 WBC Differential Comment FINAL DIFF MANUAL Toxic Vacuolation PRESENT Platelet Estimate NORMAL Platelet Morphology Comment NORMAL Prothrombin Time 37.7 SEC Prothromb Time International 3.2 RATIO Ratio Activated Partial 42.9 SEC Thromboplast Time Sodium Level 138 MEQ/L Potassium Level 3.7 MEQ/L Chloride Level 105 MEQ/L Carbon Dioxide Level 20.8 MEQ/L Anion Gap 12 MEQ/L Blood Urea Nitrogen 33 MG/DL Creatinine 1.36 MG/DL Estimat Glomerular Filtration 38 ML/MIN Rate Random Glucose 175 MG/DL Calcium Level 9.6 MG/DL Total Bilirubin 0.7 MG/DL Aspartate Amino Transf 99 U/L (AST/SGOT) Alanine Aminotransferase 52 U/L (ALT/SGPT) Alkaline Phosphatase 104 U/L Total Protein 8.3 GM/DL Albumin 4.2 GM/DL Lipase 6829 U/L Lactic Acid Level 2.8 mmol/L Last Impressions Abdomen X-Ray 01/15/17 0000 Signed Impressions: Service Date/Time: Wednesday, January 15, 2017 18:11 - CONCLUSION: 1. Gas distended stomach. 2. Suspected pneumoperitoneum. Michael Boo Jr., MD CT reveals retroperitoneal air with smaller volume pneumoperitoneum. There is a dilated stomach as well as dilated loops of small bowel throughout the abdomen without obstructing mass or focal transition point. The retroperitoneal area raises concern for perforated gastric ordered 1 ulcer. No abscess observed. The dilated bowel could relate to distal small bowel obstruction or ileus. Colonic diverticulosis without acute inflammation. Intrahepatic and extrahepatic biliary dilatation. Intrahepatic component is slightly more pronounced than the prior study. The gallbladder is surgically absent. Differential Diagnosis Differential diagnosis includes perforated viscus, pneumoperitoneum, pancreatitis, small bowel obstruction, partial small bowel obstruction, diverticulitis, volvulus, perforated diverticulum, pyelonephritis, UTI. Narrative Course I, Dr. Miller, have reviewed the advance practice practitioner's documentation and am in agreement, met with the patient face to face, made the diagnosis, and the medical decision making was done by me. *My assessment and Findings: The patient is a 81-year-old female was initially evaluated by the mid-level provider. Please refer to the initial history, physical, diagnostic evaluation, and treatment modality plan. The patient has a history of multiple previous abdominal surgeries including cholecystectomy, appendectomy, and surgery for hiatal hernia where she states the people down the esophagus wrapped around the stomach. [place] she does not have a local surgeon. Her primary physician is Dr. Krishnan. The patient developed abdominal pain yesterday which is progressively worsened today. Her last meal was this morning approximate 30 a.m., small amount of oatmeal. Her last normal bowel movement was this morning, semisolid, denied any visible blood. She notes increasing abdominal pain and distention which is generalized with mild nausea but no vomiting. She has not passed any gas today. Symptoms are moderate progressing, there are no current alleviating factors. The patient does have multiple medical problems and is currently anticoagulated on Coumadin for history DVT. Upright abdominal x-ray revealed questionable pneumoperitoneum, therefore, formal CT the abdomen and pelvis was performed. CT the abdomen and pelvis reveals retroperitoneal air with smaller volume and no pneumoperitoneum and dilated stomach as well as dilated loops of small bowel throughout the abdomen without obstructing mass or focal transition point. The retroperitoneal area raises concern for perforated gastric or to one ulcer. No abscess is observed. The dilated bowel could relate to his distal small bowel obstruction or ileus. The patient's white count was elevated , the patient had bandemia, therefore, was administered Zosyn. The patient's lipase was also elevated in the 6000s. Therefore, type and screen was sent to lab and the patient was covered with Zosyn. The on-call general surgeon, Dr. Brown was paged at 7:18 PM. I discussed the patient with the surgeon who agrees with Zosyn, NG tube, nothing by mouth, 4 units of FFP, and admission to the supervisor boarding. We'll plan for further management in the operating room after FFP has been obtained. The patient is also on Plavix, is a high risk patient. I discussed the findings and plan of care with the patient at bedside was comfortable. We will place another large bore IV. I discussed patient with Dr. La who agrees with admission to the intensive surgical care unit. Critical Care Narrative Aggregate critical care time was 40 minutes. Time to perform other separately billable procedures was not included in the critical care time. My time did not include minutes spent treating any other patients simultaneously or on activities that did not directly contribute to the patient's treatment. The services I provided to this patient were to treat and/or prevent clinically significant deterioration that could result in: Sepsis, hypovolemia, septic shock, . I provided critical care services requiring my management, as noted below: Chart data review, documentation time, medication orders and management, vital sign assessments/reviewing monitor data, ordering and reviewing lab tests, ordering and interpreting/reviewing x-rays and diagnostic studies, care of the patient and discussion of the patient with the admitting physicians. Physician Communication Physician Communication The on-call general surgeon was paged at 7:18 PM. The on-call supervisor boarding was paged at 7:25 PM for admission. I discussed the patient with Dr. La at 7: 43 PM who agrees with admission to the intensive surgical care unit. Diagnosis Primary Impression: Pneumoperitoneum Additional Impressions: Leukocytosis Qualified Code: D72.825 - Bandemia Pancreatitis Qualified Code: K85.90 - Acute pancreatitis, unspecified complication status, unspecified pancreatitis type Perforated ulcer Admitting Information Admitting Physician Requests: Admit Condition: Serious Ousmane iMller MD Jan 15, 2017 19:26
[2017-01-15] MEDS ORDERED: SODIUM CHLOR 0.9% 250 ML INJ 250 ML IV ONE (19:30)
[2017-01-15] MEDS ORDERED: ACETAMINOPHEN 325 MG TAB PO PRN (19:30)
[2017-01-15] MEDS ORDERED: diphenhydrAMINE HCL 50 MG/ML VIAL IV PRN (19:30)
[2017-01-15] MEDS ORDERED: PANTOPRAZOLE SODIUM 40 MG VIAL IV PUSH ONE (19:30)
[2017-01-15 19:37] LABS: LACTIC ACID GHOST NOT REPORTABLE
--- NOTE | 2017-01-15 19:59 | HHI.HP ---
[facility] Service Critical Care Medicine Primary Care Physician Adeline Krishnan MD Admission Diagnosis perforated viscus, pneumoperitoneum, leukocytosis with bandemia Diagnosis: Chief Complaint: Abdominal pain Travel History International Travel<30 Days: No Contact w/Intl Traveler <30 Da: No Traveled to Known Affected Are: No History of Present Illness 81-year-old female presents with abdominal pain that began about 6 hours duration. The patient states that she has a history of multiple bowel obstructions; prior abdominal surgeries also include hysterectomy, oophorectomy , lysis of adhesions, cholecystectomy, appendectomy, fundoplication. CT abdomen reveals hollow viscous perforation with both retro and intraperitoneal air. Noteworthy is dilated common biliary duct at 1.5 cm s/p cholecystectomy. Clearly an acute abdomen requiring resuscitation, correction of coumadin coagulopathy, and operative repair. A stent is in place in the proximal SMA. Review of Systems Constitutional: DENIES: Diaphoretic episodes, Fatigue, Fever, Weight gain, Weight loss, Chills, Dizziness, Change in appetite, Night Sweats Endocrine: DENIES: Abnorml menstrual pattern, Heat/cold intolerance, Polydipsia , Polyuria, Polyphagia Eyes: DENIES: Blurred vision, Diplopia, Eye inflammation, Eye pain, Vision loss , Photosensitivity, Double Vision Ears, nose, mouth, throat: DENIES: Tinnitus, Hearing loss, Vertigo, Nasal discharge, Oral lesions, Throat pain, Hoarseness, Ear Pain, Running Nose, Epistaxis, Sinus Pain, Toothache, Odynophagia Respiratory: DENIES: Apneas, Cough, Snoring, Wheezing, Hemoptysis, Sputum production, Shortness of breath Cardiovascular: DENIES: Chest pain, Palpitations, Syncope, Dyspnea on Exertion , PND, Lower Extremity Edema, Orthopnea, Claudication Gastrointestinal: COMPLAINS OF: Abdominal pain, Constipation, Anorexia Genitourinary: DENIES: Abnormal vaginal bleeding, Dysmenorrhea, Dyspareunia, Sexual dysfunction, Urinary frequency, Urinary incontinence, Urgency, Hematuria , Dysuria, Nocturia, Vaginal discharge Neurologic: DENIES: Abnormal gait, Headache, Localized weakness, Paresthesias, Seizures, Speech Problems, Tremor, Poor Balance Past Family Social History Allergies: Coded Allergies: No Known Allergies (Unverified , 01/05/17) Past Medical History Past Medical History Hx Anticoagulant Therapy: Yes (COUMADIN; PLAVIX) Cancer: No Cardiovascular Problems: Yes (STENT, PAST DVT, PERRY? ) High Cholesterol: Yes Diabetes: No Diminished Hearing: No Endocrine: Yes Gastrointestinal Disorders: Yes (NOLASCO'S ESOPHOGUS) Genitourinary: No Hepatitis: No Hiatal Hernia: No Hypertension: No Immune Disorder: Yes (LUPUS) Musculoskeletal: No Neurologic: Yes (BACK INJURY 2012) Psychiatric: Yes (ANXIETY AT TIMES/SITUATIONAL) Reproductive: No Respiratory: No Immunizations Current: Yes Thyroid Disease: Yes ?: Not Past Surgical History Abdominal Surgery: Yes (CHOLECYSTECTOMY/" LOTS OF ABD SURGERIES"-UNKNOWN) AICD: No Appendectomy: Yes Cholecystectomy: Yes Eye Surgery: Yes (BILAT CATARACTS) Gynecologic Surgery: Yes (HYSTERECTOMY/HEMMORROIDECTOMY) Hysterectomy: Yes (1966) Joint Replacement: No Pacemaker: No Other Surgery: Yes (3 BOWEL SX. , ESOPHAGEAL SX., GROIN AREA STENTS DUE TO INTESTINAL BLOCKAGES) Social History Alcohol Use: No Tobacco Use: No Substance Use: No Allergies-Medications Allergies-Medications (Allergen,Severity, Reaction): Coded Allergies: No Known Allergies (Unverified , 01/05/17) Reported Meds & Prescriptions Reported Meds & Active Scripts Active Topamax (Topiramate) 50 Mg Tab 1 Tab PO BID Lortab (Hydrocodone-Acetaminophen) 5-325 Mg Tab 1 Tab PO Q6H PRN Levothyroxine (Levothyroxine Sodium) 25 Mcg Tab 25 Mcg PO DAILY Warfarin 3 Mg Tab 3 Mg PO DAILY Amitriptyline (Amitriptyline HCl) 50 Mg Tab 50 Mg PO HS Plavix (Clopidogrel Bisulfate) 75 Mg Tab 75 Mg PO DAILY Pantoprazole (Pantoprazole Sodium) 40 Mg Tab 40 Mg PO DAILY Physical Exam Vital Signs Vital Signs Date Time Temp Pulse Resp B/P Pulse Ox O2 Delivery O2 Flow Rate FiO2 01/15/17 19:04 113 20 160/88 100 Room Air 01/15/17 19:04 20 01/15/17 17:39 20 01/15/17 17:38 97 01/15/17 17:06 97.8 117 18 123/73 95 Room Air Physical Exam P 128, BP 134/78, R 17, [place] 88% Head: Normal. Neck: Supple, airway widely patent. Lungs: Clear, no wheezes or crackles. Mildly labored due to abdominal pain and splinting. Heart: NL S1S2, no m,r. Neck veins are full. Abdomen: Distended, diffusely tender. Quiet. Extremities: Tepid, adequately perfused. Nail beds dusky. Neuro: O X 3, alert. Moves 4 limbs to command. EOMs intact. Conversant. In considerable pain. Laboratory Laboratory Tests Test 01/15/17 01/15/17 01/15/17 17:15 17:30 19:27 White Blood Count 15.5 Red Blood Count 5.60 Hemoglobin 16.2 Hematocrit 50.0 Mean Corpuscular Volume 89.3 Mean Corpuscular Hemoglobin 29.0 Mean Corpuscular Hemoglobin 32.4 Concent Red Cell Distribution Width 13.3 Platelet Count 256 Mean Platelet Volume 8.4 Neutrophils (%) (Auto) 91.3 Lymphocytes (%) (Auto) 5.3 Monocytes (%) (Auto) 2.7 Eosinophils (%) (Auto) 0.4 Basophils (%) (Auto) 0.3 Neutrophils # (Auto) 14.2 Lymphocytes # (Auto) 0.8 Monocytes # (Auto) 0.4 Eosinophils # (Auto) 0.1 Basophils # (Auto) 0.0 CBC Comment AUTO DIFF Differential Total Cells 100 Counted Neutrophils % (Manual) 70 Band Neutrophils % 23 Lymphocytes % 5 Eosinophils % 1 Basophils % 1 Neutrophils # (Manual) 14.4 Nucleated Red Blood Cells 1 Differential Comment FINAL DIFF MANUAL Toxic Vacuolation PRESENT Platelet Estimate NORMAL Platelet Morphology Comment NORMAL Prothrombin Time 37.7 Prothromb Time International 3.2 Ratio Activated Partial 42.9 Thromboplast Time Sodium Level 138 Potassium Level 3.7 Chloride Level 105 Carbon Dioxide Level 20.8 Anion Gap 12 Blood Urea Nitrogen 33 Creatinine 1.36 Estimat Glomerular Filtration 38 Rate Random Glucose 175 Calcium Level 9.6 Total Bilirubin 0.7 Aspartate Amino Transf 99 (AST/SGOT) Alanine Aminotransferase 52 (ALT/SGPT) Alkaline Phosphatase 104 Total Protein 8.3 Albumin 4.2 Lipase 6829 Lactic Acid Level 2.8 Blood Bank Comment Result Diagram: 01/15/17171401/15/171714 Assessment and Plan Assessment and Plan Assessment: 1. Acute abdomen with bowel perforation. 2. Peritonitis. 3. Severe sepsis. 4. Coagulopathy. 5. COPD, not exacerbated. Plan: 1. To ICU for ongoing resuscitation. 2. FFP to correct coagulopathy. 3. PIP/KATEY abx coverage. 4. Protonix. 5. Hold chemical DVT px untyil after OR. 6. SCDs. 7. Confirm correction of lactic acidosis. 8. Produce urine > 30/hr. 9. To OR after 4-6 hours for operative repair. Overall impression: This woman is critically ill with peritonitis and an acute surgical abdomen. She requires immediate resuscitation followed by operation if we can stabilize her. Critical care 44 min Shyam La MD Jan 15, 2017 19:59
[2017-01-15] MEDS ORDERED: MORPHINE SULFATE 4 MG/ML INJ IV PRN (20:00)
[2017-01-15] MEDS ORDERED: RESP: ALBUTEROL 2.5 MG/IPRATROPIUM 0.5 MG NEB (PRN) INH (20:00)
[2017-01-15] MEDS ORDERED: ONDANSETRON HCL 4 MG/2 ML VIAL IV PRN (20:00)
[2017-01-15] MEDS ORDERED: CHLORHEXIDINE GLUCONATE 2 % 1 PACK (2 CLOTHS) TOP PRN (20:00)
[2017-01-15] MEDS ORDERED: MISCELLANEOUS NURSING INFORMATION XX SCH (20:00)
[2017-01-15 20:05] LABS: BLOOD, URINE NEG (NEG); COMMENT (UR) CATH-CULT NOT IND; CULTURE IF INDICATED CATH CULTURE NOT IND; GLUCOSE,URINE NEG (NEG); HYALINE CAST, URINE 7 /lpf (RARE); KETONE, URINE NEG (NEG); MUCUS URINE FEW /lpf (OCC); NITRITE,URINE NEG (NEG); URINE COLOR YELLOW (YELLW/STRAW)
--- NOTE | 2017-01-15 22:14 | MB ---
cc: BUSHRACARMELLA PORTER DATE OF CONSULTATION: 01/15/2017. REASON FOR CONSULTATION: Retroperitoneal and free air and abdominal pain. PHYSICIAN REQUESTING CONSULTATION: Dr. Miller, emergency room physician. HISTORY OF PRESENT ILLNESS: The patient is a 81-year-old female with history of multiple previous abdominal surgeries and bowel obstructions including a previous perforation who represented to the [facility] Emergency Department with new onset abdominal pain. The patient and her state that she was in her normal state of health until about six weeks ago when she developed some weight loss and chronic nausea and decreased p.o. intake. This was apparently manageable and the patient was having bowel movements through this with minimal pain, however the patient had sudden onset of severe 10/10 pain this afternoon. The patient was brought to the emergency department by her and underwent evaluation. On physical exam, the patient was found to have some rebound tenderness on exam and some free air on the chest x-ray. A CT scan was ordered and showed multiple dilated loops of bowel and some retroperitoneal and intraperitoneal free air. The patient also was noted to have elevated lipase of 6000 and elevated INR of 3.2 on coumadin as well as elevated white blood cell count of 15,000. PAST SURGICAL HISTORY: The patient's previous operations include: 1. Cholecystectomy. 2. Appendectomy. 3. Bowel resection for perforation. 4. Multiple surgeries for bowel obstructions. 5. Previous stenting of her SMA. REVIEW OF SYSTEMS: A twelve-point review of systems was gone over with the patient and is negative except for the pertinent positives mentioned above in the history of present illness. ALLERGIES NO KNOWN DRUG ALLERGIES. MEDICATIONS: 1. Coumadin. 2. Plavix. 3. Protonix. 4. Amitriptyline. 5. Levothyroxine. 6. Hydrocodone. 7. Topamax. PAST MEDICAL HISTORY: Her past medical history is significant for: 1. Cardiovascular disease. 2. Sky's esophagus. 3. Lupus. 4. Chronic back pain. 5. Anxiety. 6. Hypothyroidism. 7. Mesenteric ischemia. SOCIAL HISTORY: The patient denies alcohol, tobacco, illicit drug use. FAMILY HISTORY: The family history is noncontributory. PHYSICAL EXAMINATION: VITAL SIGNS: Pulse 113, respiratory rate 20, blood pressure 160/88, 02 saturation 100% on room air. GENERAL: The patient is a thin acutely ill-appearing female. HEAD, EYES, EARS, NOSE, THROAT: Head is normocephalic and atraumatic. Pupils equal, round and reactive to light. The sclerae are anicteric. The mucous membranes are moist. NECK: The neck is supple. No jugular venous distention. LUNGS: Breath sounds present bilaterally. Nonlabored breathing pattern. HEART: Regular rate and rhythm. ABDOMEN: Abdomen is distetnded. It is tympanic with rigidity and involuntary guarding and rebound tenderness. Hypoactive bowel sounds. Multiple surgical scars without hernia. BACK: No costovertebral angle tenderness. EXTREMITIES: No cyanosis, clubbing or edema. NEUROLOGIC: The patient is awake, alert and oriented x3 and moving all extremities nonfocally. Cranial nerves II through XII are grossly intact. IMAGING STUDIES: CT scan of the abdomen and pelvis does show multiple dilated loops and dilated stomach with retroperitoneal and intra-abdominal air without transition poin, likely hollow viscus perforation. ASSESSMENT AND PLAN: The patient is 81-year-old female with multiple significant comorbidities on anticoagulation. The patient has a significantly dilated bowel, possibly a chronic partial obstruction, now with a perforation as evidenced by free air in the abdomen. The patient is on anticoagulation and is a very poor surgical candidate and has multiple previous surgeries. I discussed with the patient and her that due to the patient with active sepsis and peritonitis that despite her risk that proceeding to the operating room for exploratory laparotomy is the best chance of the patient having a good outcome. Did discuss risks, benefits, and alternatives and did discuss with them that the patient could possibly require further operations such as colostomy and is at risk for multiple complications including stroke, heart attack and in the postoperative period. They understand the risks and would like to proceed with surgery. We will continue resuscitation of the patient with antibiotics n.p.o. and fresh frozen plasma as well as platelets for the patient's anticoagulation. Thank very much for this consultation. MD NGHIA Gomes/SUSAN /9:51 PM /10:03 PM
[2017-01-15] MEDS: SODIUM CHLOR 0.9% 1000 ML INJ 1,000 ML IV SCH (22:48)
[2017-01-15 23:41] LABS: INTERNATIONAL NORMALIZED RATIO 1.3 RATIO; PROTHROMBIN TIME - PATIENT 15.1 SEC (9.8-11.6)
[2017-01-16] VITALS (20 sets, daily range): BP systolic 103–147; BP diastolic 44–71; PULSE 84–106; RESP 14–32; TEMP 97.7–98.8; O2SAT 92–100
[2017-01-16] MEDS ORDERED: MORPHINE SULFATE 4 MG/ML INJ IV PRN
[2017-01-16 02:02] LABS: BLOOD GAS BASE EXCESS -4.4 mmol/L (-2-2); BLOOD GAS CARBOXYHEMOGLOBIN 1.7 % (0-4); BLOOD GAS HCO3 21 mmol/L (22-26); BLOOD GAS METHEMOGLOBIN 1.1 % (0-2); BLOOD GAS O2 HGB SATURATION 97 % (90-100); BLOOD GAS OXYGEN CONTENT 17.5 Vol % (12.0-20.0); BLOOD GAS PCO2 40 mmHg (38-42); BLOOD GAS PO2 258 mmHg (61-120); BLOOD GAS TOTAL HGB 12.4 G/DL (12.0-16.0); TEMP CORR TO 98.6
[2017-01-16 02:03] LABS: CRITICAL VALUE NO; FIO2 50 %; OXYGEN DEVICE VENTILATOR; STAT NO; VENT SETTINGS PT IN OR
[2017-01-16] MEDS ORDERED: ALBUMIN HUMAN 5% 12.5 GM/250 ML BOTTLE IV ONE (02:15)
[2017-01-16 02:26] LABS: AUTOMATED NEUTROPHIL # 2.5 TH/MM3 (1.8-7.7); BASOPHIL % 0.2 % (0.0-2.0); EOSINOPHIL % 0.1 % (0.0-4.0); HEMATOCRIT 26.8 % (35.0-46.0); HEMO FLAGS DIFF FINAL; LYMPH % 9.6 % (9.0-44.0); LYMPHOCYTE # 0.3 TH/MM3 (1.0-4.8); MEAN CELL VOLUME 87.7 FL (80.0-100.0); MEAN CORPUSCULAR HEMOGLOBIN 29.6 PG (27.0-34.0); MEAN CORPUSCULAR HGB CONC 33.8 % (32.0-36.0); MONO % 6.5 % (0.0-8.0); NEUT % 83.6 % (16.0-70.0); PLATELET COUNT 177 TH/MM3 (150-450); RED BLOOD COUNT 3.05 MIL/MM3 (4.00-5.30); RED CELL DISTRIBUTION WIDTH 13.2 % (11.6-17.2)
[2017-01-16] MEDS: SODIUM CHLOR 0.9% 1000 ML INJ 1,000 ML IV SCH ×4 (02:40→21:47)
[2017-01-16 03:34] LABS: HEMATOCRIT 28.5 % (35.0-46.0); MEAN CELL VOLUME 84.8 FL (80.0-100.0); MEAN CORPUSCULAR HEMOGLOBIN 28.2 PG (27.0-34.0); MEAN CORPUSCULAR HGB CONC 33.3 % (32.0-36.0); PLATELET COUNT 166 TH/MM3 (150-450); RED BLOOD COUNT 3.36 MIL/MM3 (4.00-5.30); RED CELL DISTRIBUTION WIDTH 15.1 % (11.6-17.2); REVIEW FLAG FINAL; WHITE BLOOD COUNT 2.6 TH/MM3 (4.0-11.0)
[2017-01-16] MEDS: CHLORHEXIDINE GLUCONATE 2 % 1 PACK (2 CLOTHS) TOP SCH (04:00)
[2017-01-16] MEDS ORDERED: PROPOFOL 1000 MG/100 ML INJ 100 ML ONE (04:08)
--- NOTE | 2017-01-16 04:23 | HHI.PR ---
Immediate Post Op Note Procedure Date: Jan 16, 2017 Pre Op Diagnosis: (1) Retroperitoneal air Post Op Diagnosis: (1) Retroperitoneal air (2) Small bowel obstruction due to adhesions Surgeon: Srinivasan Brown [employer] Observer Helper(s): staff Procedure: ExLap ANDI small bowel resection G-tube Findings: tiny amount of retroperitoneal air, no gross perforation, no peritonitis, no free fluid small bowel obstruction Complications: none Specimen(s) removed: small bowel 12in Estimated blood loss: 800ml Anesthesia: General Drains: CHRIS IVF Patient to: PACU Patient Condition: Srinivasan Robles MD Jan 16, 2017 04:23
[2017-01-16] MEDS ORDERED: DO NOT ADM ANY ANTICOAGULANT DRUGS PRN (04:30)
[2017-01-16] MEDS ORDERED: fentaNYL CITRATE 250 MCG/5 ML AMP ONE (04:45)
[2017-01-16 04:58] LABS: BLOOD GAS BASE EXCESS -4.3 mmol/L (-2-2); BLOOD GAS CARBOXYHEMOGLOBIN 1.7 % (0-4); BLOOD GAS HCO3 22 mmol/L (22-26); BLOOD GAS METHEMOGLOBIN 1.1 % (0-2); BLOOD GAS O2 HGB SATURATION 97 % (90-100); BLOOD GAS OXYGEN CONTENT 13.1 Vol % (12.0-20.0); BLOOD GAS PCO2 49 mmHg (38-42); BLOOD GAS PO2 211 mmHg (61-120); BLOOD GAS TOTAL HGB 9.2 G/DL (12.0-16.0); CRITICAL VALUE YES; OXYGEN DEVICE VENTILATOR; TEMP CORR TO 98.6
[2017-01-16 04:59] LABS: DRAW SITE ART LINE; FIO2 50 %; STAT NO; VENT SETTINGS AC12/400/5PEEP
[2017-01-16] MEDS ORDERED: PROPOFOL 1000 MG/100 ML IV SCH (05:15)
[2017-01-16] MEDS: PIPERACIL-TAZO 4.5 GM PREMIX 100 ML IV SCH ×3 (06:15→20:44)
--- NOTE | 2017-01-16 07:10 | HHI.CCPN ---
Subjective Remarks/Hospital Course Hospital Course: 81-year-old female presents with abdominal pain that began about 6 hours duration. The patient states that she has a history of multiple bowel obstructions; prior abdominal surgeries also include hysterectomy, oophorectomy , lysis of adhesions, cholecystectomy, appendectomy, fundoplication. CT abdomen reveals hollow viscous perforation with both retro and intraperitoneal air. Noteworthy is dilated common biliary duct at 1.5 cm s/p cholecystectomy. Clearly an acute abdomen requiring resuscitation, correction of coumadin coagulopathy, and operative repair. A stent is in place in the proximal SMA. Subjective: 01/16: intubated, sedated. leukopenic this morning. mildly hypotensive, receiving ivf bolus. lactate cleared. Objective Vital Signs Date Time Temp Pulse Resp B/P Pulse Ox O2 Delivery O2 Flow Rate FiO2 01/16/17 06:00 85 01/16/17 05:30 100 40 01/16/17 05:30 98.8 14 147/71 01/16/17 05:00 Mechanical Ventilator 01/15/17 22:30 10.00 Intake and Output 01/15/17 01/15/17 01/16/17 08:00 16:00 00:00 Intake Total 1301 ml Output Total 200 ml Balance 1101 ml Result Diagram: 01/16/17 0322 01/15/17 1715 Other Results Laboratory Tests Test 01/16/17 01/16/17 01:45 04:44 Blood Gas Puncture Site NA ART LINE Blood Gas Patient Temperature 98.6 98.6 Blood Gas HCO3 21 mmol/L 22 mmol/L (22-26) (22-26) Blood Gas Base Excess -4.4 mmol/L -4.3 mmol/L (-2-2) (-2-2) Blood Gas Oxygen Saturation 97 % (90-100) 97 % (90-100) Arterial Blood pH 7.33 7.27 (7.380-7.420) (7.380-7.420) Arterial Blood Partial 40 mmHg (38-42) 49 mmHg (38-42) Pressure CO2 Arterial Blood Partial 258 mmHg 211 mmHg Pressure O2 (61-120) (61-120) Arterial Blood Oxygen Content 17.5 Vol % 13.1 Vol % (12.0-20.0) (12.0-20.0) Arterial Blood 1.7 % (0-4) 1.7 % (0-4) Carboxyhemoglobin Arterial Blood Methemoglobin 1.1 % (0-2) 1.1 % (0-2) Blood Gas Hemoglobin 12.4 G/DL 9.2 G/DL (12.0-16.0) (12.0-16.0) Oxygen Delivery Device VENTILATOR VENTILATOR Blood Gas Ventilator Setting PT IN OR AC12/400/5PEEP Blood Gas Inspired Oxygen 50 % 50 % Imaging Last Impressions Abdomen X-Ray 01/16/17 0000 Signed Impressions: Service Date/Time: Monday, January 16, 2017 14:24 - CONCLUSION: No acute abnormality seen. Mitch North MD Abdomen/Pelvis CT 01/15/17 1712 Signed Impressions: Service Date/Time: Sunday, January 15, 2017 18:38 - CONCLUSION: 1. Retroperitoneal air with smaller volume pneumoperitoneum. There is a dilated stomach as well as dilated loops of small bowel throughout the abdomen without obstructing mass or focal transition point. The retroperitoneal air raises concern for perforated gastric or duodenal ulcer. No abscess observed. The dilated bowel could relate to a distal small bowel obstruction or ileus. 2. Colonic diverticulosis without acute inflammation. 3. Intrahepatic and extra hepatic biliary dilatation. The intrahepatic component is slightly more pronounced than the prior study. The gallbladder is surgically absent. Michael Boo Jr., MD Objective Remarks Head: Normal. Neck: Supple, airway widely patent. Lungs: intubated, Clear, no wheezes or crackles. Mildly labored due to abdominal pain and splinting. Heart: RRR, sinus by tele. Abdomen: Distended, diffusely tender. + guarding. Solo drain exits RLQ with sanguinous output. dressing with minimal blood. g-tube in place to gravity. Extremities: Tepid, adequately perfused. Neuro: RASS -2. intubated, fc x 4. A/P Assessment and Plan Assessment: 81yF POD 1 s/p ex-lap, ANDI, small bowel resection with g-tube placement now complicated by persistent hypovolemia. I performed bedside critical care ultrasound which demonstrated no fluid in Sy's pouch, flat IVC, normal biventricular function, decompressed RV, no pericardial effusion. Lactate remains low, though hgb slowly dropping. SOLO with moderate output. abdominal pain out of proportion to surgical operation. I have let surgeon know. She remains critically ill. will place CVL for central pressure monitoring. may need vasopressors. likely still in mixed hypovolemic and septic shock. Plan by systems: Neurologic: Acute pain secondary to surgical procedure Fentanyl, propofol for goal RASS -2 Tylenol as needed for pain or fever Respiratory: Acute hypoxic and hypercarbic respiratory failure Vent bundle Head of bed 30 Wean FiO2 for goal SPO2 greater than 90% no SBT today given hemodynamic instability Cardiovascular: Persistent hypotension Hypovolemic shock Possible septic shock 2 L normal saline bolus [address] central venous catheter Trend CVP Trend Lactate Renal: Continue Parisi for close monitoring of urine output -- Strict I/Os FEN/GI: Acute protein calorie malnutritionsevere Perforated hollow viscus Status post expiratory laparotomy, lysis of adhesions, small bowel resection, G- tube placement 01/16 Nothing by mouth G-tube and NG tube to suction/gravity Close monitoring of SOLO drain GEN surgeon: Rolando --ICU electrolyte protocol -- daily bmp Heme/ID: Anemia secondary to acute blood loss Serial hemoglobins Slightly trending down We'll give 1 unit PRBC given hypotension and concern for ongoing active bleeding Continue Zosyn, would anticipate 4 day course. Endocrine: Hyperglycemia of critical illness -- SSI, every 6, medium scale Prophylaxis: GI Prophylaxis Protonix DVT Prophylaxis -- SCDs Holding pharmacologic DVT prophylaxis given what appears to be ongoing active bleeding Lines: Arterial line 01/[address] central line for central pressure monitoring and need for vasoactive substances Parisi, keep this as we are actively monitoring urine output Dispo: Remain in the ICU. She remains critically ill. This patient remains critically ill with one or more organ systems which are or may become a threat to life. I have spent in excess of 51 minutes discontinuously in the care and management of this patient. This time is exclusive of procedures, and includes, but is not limited to, evaluation of the patient, review of the medical record, discussions with family, consultants, nursing staff, or respiratory therapy, and documentation in the medical record. Gautam Jones MD Jan 16, 2017 07:10
[2017-01-16 07:49] LABS: BLOOD GAS CARBOXYHEMOGLOBIN 1.5 % (0-4); BLOOD GAS HCO3 21 mmol/L (22-26); BLOOD GAS METHEMOGLOBIN 0.9 % (0-2); BLOOD GAS O2 HGB SATURATION 97 % (90-100); BLOOD GAS OXYGEN CONTENT 14.8 Vol % (12.0-20.0); BLOOD GAS PCO2 46 mmHg (38-42); BLOOD GAS PO2 187 mmHg (61-120); BLOOD GAS TOTAL HGB 10.6 G/DL (12.0-16.0); CRITICAL VALUE YES; FIO2 40 %; OXYGEN DEVICE VENTILATOR; TEMP CORR TO 98.6; VENT SETTINGS 14/450/+5
[2017-01-16 07:50] LABS: DRAW SITE ART LINE; STAT NO
--- NOTE | 2017-01-16 12:03 | EKG ---
Date Performed: 01/15/2017 Time Performed: 17:37:04 PTAGE: 81 years EKG: SINUS TACHYCARDIA WITH OCCASIONAL SUPRAVENTRICULAR PREMATURE COMPLEXES POSSIBLE RIGHT ATRIA L ENLARGEMENT SEPTAL MYOCARDIAL INFARCTION Since previous tracing, no significant change noted ABNORM AL ECG PREVIOUS TRACING : 08/26/2016 14.35 DOCTOR: Henok Doherty Interpretating Date/Time 01/16/2017 12:02:30
[2017-01-16 13:13] LABS: AUTOMATED NEUTROPHIL # 6.4 TH/MM3 (1.8-7.7); BASOPHIL % 0.1 % (0.0-2.0); EOSINOPHIL % 0.1 % (0.0-4.0); HEMATOCRIT 25.9 % (35.0-46.0); HEMO FLAGS AUTO DIFF; LYMPHOCYTE # 0.4 TH/MM3 (1.0-4.8); MEAN CORPUSCULAR HEMOGLOBIN 28.5 PG (27.0-34.0); MEAN CORPUSCULAR HGB CONC 33.5 % (32.0-36.0); NEUT % 88.8 % (16.0-70.0); PLATELET COUNT 167 TH/MM3 (150-450); RED BLOOD COUNT 3.05 MIL/MM3 (4.00-5.30); RED CELL DISTRIBUTION WIDTH 15.3 % (11.6-17.2); WHITE BLOOD COUNT 7.2 TH/MM3 (4.0-11.0)
[2017-01-16 13:22] LABS: INTERNATIONAL NORMALIZED RATIO 1.9 RATIO; PROTHROMBIN TIME - PATIENT 21.4 SEC (9.8-11.6)
[2017-01-16 13:50] LABS: BANDS 51 % (0-6); METAMYELOCYTES 21 % (0-1); NEUTROPHIL # MANUAL DIFF 6.7 TH/MM3 (1.8-7.7); POLYS (SEG NEUTROPHILS) 21 % (16-70); WBC DIFF SAMPLE 100
[2017-01-16 13:52] LABS: SCAN/DIFF FINAL DIFF MANUAL
[2017-01-16 13:53] LABS: TOXIC VACUOLATION PRESENT (NONE SEEN)
[2017-01-16 14:06] LABS: BICARBONATE 23.1 MEQ/L (21.0-32.0); POTASSIUM 3.6 MEQ/L (3.5-5.1); TOTAL BILIRUBIN ADULT 0.7 MG/DL (0.2-1.0)
[2017-01-16] MEDS ORDERED: SODIUM CHLOR 0.9% 1000 ML INJ 1,000 ML IV ONE ×2 (14:45→16:30)
--- NOTE | 2017-01-16 14:58 | RADRPT ---
EXAM DATE/TIME: 01/16/2017 14:24 [facility] COMPARISON: No previous studies available for comparison. INDICATIONS : Abdominal pain, distension for 4 days. Blood loss. MEDICAL HISTORY : None. SURGICAL HISTORY : Hysterectomy. Cholecystectomy.Small bowel surgeries. Stents ENCOUNTER: Subsequent ACUITY: 4 - 6 days PAIN SCORE: 10/10 LOCATION: Bilateral Abdomen FINDINGS: Supine view of the abdomen was performed. Skin dali are seen in the midline. There is an NG tube in place. There appears to be drainage catheter bilaterally. Clips are seen in the right and left abd omen. Dilated bowel is not seen. Free air is not clearly seen. There some compressive changes at L3 o n the left side. Associated degenerative change in this region. There is degenerative change in the l ower lumbar spine.. CONCLUSION: No acute abnormality seen. Mitch North MD on January 16, 2017 at 14:53 Board Certified Radiologist. This report was verified electronically.
[2017-01-16 15:40] LABS: BLOOD GAS BASE EXCESS -5.4 mmol/L (-2-2); BLOOD GAS HCO3 19 mmol/L (22-26); BLOOD GAS O2 HGB SATURATION 93 % (90-100); BLOOD GAS OXYGEN CONTENT 11.4 Vol % (12.0-20.0); BLOOD GAS PCO2 35 mmHg (38-42); BLOOD GAS PO2 77 mmHg (61-120); BLOOD GAS TOTAL HGB 8.7 G/DL (12.0-16.0); CRITICAL VALUE NO; DRAW SITE ART LINE; FIO2 21 %; OXYGEN DEVICE VENTILATOR; TEMP CORR TO 98.6; VENT SETTINGS PRVC/16/450/+5
[2017-01-16 15:41] LABS: STAT YES
--- NOTE | 2017-01-16 16:46 | RADRPT ---
EXAM DATE/TIME: 01/16/2017 16:11 [facility] COMPARISON: No previous studies available for comparison. INDICATIONS : Central line placement. MEDICAL HISTORY : None. SURGICAL HISTORY : None. ENCOUNTER: Initial ACUITY: 1 day PAIN SCORE: Non-responsive. LOCATION: Bilateral chest FINDINGS: The right internal jugular central line has its tip in the right atrium. There is no pneumothorax. An endotracheal tube has its tip 1 cm above the master. A nasogastric tube has its tip in the stomac h. Bibasilar streakiness is noted consistent with atelectasis and/or mild infiltrates. Clinical cor relation is recommended. The heart is normal. Degenerative changes and scoliosis of the thoracic sp ine are noted. CONCLUSION: 1. Bibasilar streakiness consistent with atelectasis and/or infiltrates. Clinical correlation is re commended. 2. Right internal jugular central line has its tip in the right atrium. There is no pneumothorax. 3. Endotracheal tube 1 cm above the master. Meet Smith MD on January 16, 2017 at 16:34 Board Certified Radiologist. This report was verified electronically.
[2017-01-16] MEDS ORDERED: POTASSIUM CHLOR 40 MEQ PREMIX 100 ML IV PRN (17:30)
[2017-01-16] MEDS ORDERED: fentaNYL DRIP 250 ML IV SCH (17:30)
[2017-01-16] MEDS ORDERED: POTASSIUM CHLOR 20 MEQ PREMIX 100 ML IV PRN (17:30)
[2017-01-16] MEDS ORDERED: POTASSIUM PHOSPHATE MONOBASIC 500 MG TAB PO PRN (17:30)
[2017-01-16] MEDS ORDERED: POTASSIUM PHOSPHATE MONOBASIC 500 MG TAB PO/TUBE PRN (17:30)
[2017-01-16] MEDS ORDERED: SODIUM PHOSPHATE INJ 30 MMOL in SODIUM CHLOR 0.9% 250 ML INJ 240 ML IV PRN (17:30)
[2017-01-16] MEDS ORDERED: MAGNESIUM OXIDE 400 MG TAB PO PRN (17:30)
[2017-01-16] MEDS ORDERED: POTASSIUM PHOSPHATE INJ 30 MMOL in SODIUM CHLOR 0.9% 250 ML INJ 250 ML IV PRN (17:30)
[2017-01-16] MEDS ORDERED: MAGNESIUM SULFATE INJ 2 GM in SODIUM CHLORIDE 0.9% INJ 96 ML IV PRN (17:30)
[2017-01-16] MEDS ORDERED: PROPOFOL 1000 MG/100 ML INJ 100 ML IV SCH (17:30)
[2017-01-16] MEDS ORDERED: MAGNESIUM SULFATE INJ 4 GM in SODIUM CHLORIDE 0.9% INJ 92 ML IV PRN (17:30)
--- NOTE | 2017-01-16 17:35 | PD.PROCEDR ---
Procedure Note Procedure Central Line Procedure Note Right IJ 7 K[place] 20 cm triple lumen catheter Diagnosis: Septic shock Indications: Need for highly potent vasoactive substances and central pressure monitoring Consent: Written consent was obtained Anesthesia: Propofol IV, lidocaine 1% locally Description of the Procedure: The patient was placed in the supine, mild- Trendelenburg position. The area was prepped and draped sterilely. A 19g needle was inserted under negative pressure aspiration and dark venous blood was obtained. A guidewire was inserted easily without resistance. A small incision was made using a #11 blade. Using a modified Seldinger technique, the dilator and 7 Kyr[place]z, 20 cm catheter were advanced over the guidewire without resistance. All ports were aspirated and flushed, and had brisk blood return. The line was secured at 18 cm at the skin using 2-0 silk interrupted sutures. A Biopatch and Transparent sterile dressing were applied. There were no immediate complications noted. There was minimal EBL. The patient tolerated the procedure well. Ultrasound Guidance: Ultrasound guidance was used to identify the right internal jugular vein. The vascular anatomy of the right anterior neck was normal. The vessel was cannulated under direct, real-time ultrasound visualization. After placement of the guidewire, confirmation of the guidewire in the lumen of the vessel was made using ultrasound visualization, before dilation of the tract. A Chest x-ray has been ordered. I personally performed the procedure. Gautam Jones MD Jan 16, 2017 17:35
[2017-01-16] MEDS: PANTOPRAZOLE SODIUM 40 MG VIAL IV PUSH SCH (18:00)
[2017-01-16] MEDS: INSULIN NovoLIN REGULAR SUPPLEMENTAL SCALE SQ SCH (18:00)
--- NOTE | 2017-01-16 18:14 | MP ---
cc: CARMELLA CLEMENS DATE OF SURGERY 01/15/17 PREOPERATIVE DIAGNOSIS Intra-abdominal free air. POSTOPERATIVE DIAGNOSIS 1. Small bowel obstruction secondary to adhesions. 2. Micro perforation of duodenum. ANESTHESIA General. PROCEDURE 1. Exploratory laparotomy. 2. Extensive lysis of adhesions, approximately 2.5 hours. 3. Small bowel resection with anastomosis. 4. Gastrostomy tube placement. ATTENDING SURGEON Stephanie [employer] Staff. BLOOD LOSS 800 cc. FINDINGS 1. Distal jejunal, early ileal band adhesion in the small bowel creating a near total bowel obstruction with significantly dilated proximal jejunum, duodenum and stomach and decompressed ileum and colon. 2. Few small bubbles of air on the retroperitoneum around the duodenum. No significant perforation noted. INDICATIONS FOR PROCEDURE The patient is a 81-year-old female with history of multiple abdominal surgeries who presented to the emergency department after severe onset abdominal pain. The patient did have some significant nausea, decreased appetite and p.o. intake for several weeks prior to this. CT scan was performed in the emergency department which shows retroperitoneal air in the area of the duodenum as well as small areas of free air in the right upper quadrant. There was also significantly dilated small bowel. General surgery was consulted and the patient was admitted to the Intensive Care Unit. After discussion with the patient about the risks, benefits, alternatives to surgery for likely hollow viscous perforation she agreed to undergo the procedure. After informed was obtained the patient was taken to the operating room, placed in supine position, placed under general endotracheal anesthesia. The patient's abdomen was shaved, prepped and draped in sterile fashion. Time-out was performed. The abdomen was entered in the midline incision with the 10 blade scalpel. We excised the patient's old midline scar with a 15 blade scalpel as well and the skin was discarded. Using bovie electrocautery dissected subcutaneous tissue and opened in the midline fascia the full length of the incision. There was some filmy adhesions in the abdomen but these are easily taken down at the midline. Once we had opened up the incision the full length with retraction of the fascia to create a small tear type enterotomy at a piece of small bowel that was densely adhered to the right and the left side of our the fascia. Therefore I took this loop down initially first using Metzenbaum scissors and placed a stitch in this to prevent any contamination and to iram this for later attention. At this point in time there was no free air or free fluid noted. The abdomen was essentially frozen abdomen other than the adhesions were rather filmy in most areas, although, they were dense in some areas. We did use Metzenbaum scissors mostly as well as some electrocautery to do an extensive lysis of adhesions, approximately 2.5 hours of full lysis of adhesions. During lysis adhesions we did note the patient had a mid small bowel adhesive bowel obstruction. This was densely adhered on itself and lysing this area which was particularly dense area of small bowel adhesions. There was multiple serosal areas of injury as well as significant devascularization from the mesentery. We did perform a small bowel resection, resecting the area of obstruction and the injured mesentery as well as the area of the enterotomy which was approximately 12 inches of small bowel. This was done using the blue load on the GI Ethicon layer stapler cutter proximally and distally. We used the Enseal to divide the mesentery and the bowel was passed off for pathological processing. We then performed a [id number] functional end-to-end anastomosis using blue load of the GI 60 Ethicon stapler and used another load to close the stapler defects. The cross stitches proximal and distal in the mesenteric defect were closed with 3-0 silk sutures. At this point in time we irrigate out the abdomen. All suctioning was clear. We turned our attention towards examining a perforation. We subsequently dilated proximal bowel and stomach. It was noted we milked any contents back to the NG tube and this was completely removed. We did fully Kocherized the duodenum all the way to the aorta and opened the ligament of Treitz as well as also performed Cattell Braasch type maneuver and immobilized the entire right colon as well. On CT scan there was noted to be air in the lesser sac and more in the right upper quadrant and this was completely visualized. There was no obvious source of any injury. There was no contamination from liquid or solid contents whatsoever, only some small amount of air bubbles in the retroperitoneum and margot hepatis area. We did fill the stomach with air and obstructed the bowel distally and fill the abdomen with water and compressed this and there was no leak or air bubble or signs of any a perforation. At this point in time we placed the NG tube back to suction. We suctioned out our irrigation. I ran the small bowel from ligament of Treitz down to the terminal ileum. We did repair a few small very superficial minor serosal tears with a 3-0 silk sutures in lumber type fashion. We then turned attention towards closure. So that the perforation was likely microperforation due to obstruction and there was noticed clinical perforation at this time. I did place a drain in the retroperitoneal, the right upper quadrant and brought this down through the pelvis and out through the right lower quadrant separate stab incision. It was sutured in place with nylon suture. We placed a G tube in standard Guadalupe fashion using pursestring suture in the antrum of the stomach and bring the G tube through the left upper quadrant into the gastric lumen. The balloon was inflated and a pursestring was tied and then we stand with the stomach up to the abdominal wall with 3-0 silk sutures as well. We then started our closure. We ensured the bowel was in normal anatomic position and placed the remaining amount of omentum over the midline. We closed the abdomen with a single #1 looped PDS suture in a running fashion. We closed the skin with skin dali and sterile dressing was applied. G tube was placed to gravity drainage and the drain was placed to suction. The patient was left on the ventilator, transferred to the PACU under the care of critical care. The patient tolerated the procedure well. No apparent complications. All counts were correct. I was present and scrubbed for the entire procedure. MD NGHIA Gomes/TREVOR /4:14 AM /5:32 PM
[2017-01-16] MEDS: RESP: ALBUTEROL 2.5 MG/IPRATROPIUM 0.5 MG NEB (SCH) INH (19:37)
[2017-01-16 21:29] LABS: HEMATOCRIT 30.7 % (35.0-46.0); REVIEW FLAG FINAL
[2017-01-16] MEDS: CHLORHEXIDINE 0.12% (ORAL KIT) 15 ML CUP MT SCH (21:47)
[2017-01-16] MEDS: DEXTROSE 50% IN WATER 50 ML VIAL(D50) IV PUSH PRN (23:45)
[2017-01-17] VITALS (16 sets, daily range): BP systolic 93–127; BP diastolic 42–55; PULSE 103–115; RESP 12–19; TEMP 97.7–98.6; O2SAT 90–100
[2017-01-17] MEDS: DEXTROSE 50% IN WATER 50 ML VIAL(D50) IV PUSH PRN ×4 (00:23→13:10)
[2017-01-17 02:56] LABS: HEMATOCRIT 28.8 % (35.0-46.0); MEAN CELL VOLUME 84.7 FL (80.0-100.0); MEAN CORPUSCULAR HEMOGLOBIN 28.5 PG (27.0-34.0); MEAN CORPUSCULAR HGB CONC 33.7 % (32.0-36.0); PLATELET COUNT 151 TH/MM3 (150-450); REVIEW FLAG FINAL; WHITE BLOOD COUNT 13.6 TH/MM3 (4.0-11.0)
[2017-01-17] MEDS: RESP: ALBUTEROL 2.5 MG/IPRATROPIUM 0.5 MG NEB (SCH) INH ×4 (03:12→20:01)
[2017-01-17 03:21] LABS: BICARBONATE 22.3 MEQ/L (21.0-32.0); POTASSIUM 3.1 MEQ/L (3.5-5.1)
[2017-01-17] MEDS: CHLORHEXIDINE GLUCONATE 2 % 1 PACK (2 CLOTHS) TOP SCH (03:28)
[2017-01-17] MEDS: PIPERACIL-TAZO 4.5 GM PREMIX 100 ML IV SCH ×3 (03:28→20:13)
[2017-01-17] MEDS: POTASSIUM CHLOR 40 MEQ PREMIX 100 ML IV PRN (03:47)
[2017-01-17 04:09] LABS: CALCIUM-PROTEIN CORRECTED 6.5 MG/DL (8.5-10.1)
--- NOTE | 2017-01-17 04:46 | RADRPT ---
EXAM DATE/TIME: 01/17/2017 03:36 [facility] COMPARISON: CHEST SINGLE AP, January 16, 2017, 16:11. INDICATIONS : Shortness of breath MEDICAL HISTORY : None. SURGICAL HISTORY : None. ENCOUNTER: Subsequent ACUITY: 2 days PAIN SCORE: Non-responsive. LOCATION: Bilateral chest FINDINGS: A single view of the chest demonstrates the lungs to be symmetrically aerated without evidence of mas s, infiltrate or effusion. Endotracheal tube with tip at the master. Right jugular central line and nasogastric tube unchanged. The cardiomediastinal contours are unremarkable. Osseous structures are intact. CONCLUSION: 1. Endotracheal tube with tip at master. It should be retracted 3 cm. 2. Lungs are clear. Alfredo Greene MD on January 17, 2017 at 4:43 Board Certified Radiologist. This report was verified electronically.
[2017-01-17] MEDS ORDERED: CALCIUM GLUCONATE 10% 1 GM/10 ML VIAL ONE (05:59)
[2017-01-17] MEDS: INSULIN NovoLIN REGULAR SUPPLEMENTAL SCALE SQ SCH ×4 (06:00→18:00)
[2017-01-17] MEDS: DEXTROSE 10% INJ 1,000 ML IV SCH ×2 (06:00→22:23)
[2017-01-17] MEDS ORDERED: CALCIUM GLUCONATE INJ 2 GM in DEXTROSE 5% IN WATER 100ML INJ 100 ML IV ONE ×2 (06:00)
[2017-01-17] MEDS: CHLORHEXIDINE 0.12% (ORAL KIT) 15 ML CUP MT SCH ×2 (08:00→20:14)
[2017-01-17 08:41] LABS: HEMATOCRIT 28.1 % (35.0-46.0); REVIEW FLAG FINAL
--- NOTE | 2017-01-17 10:42 | HHI.CCPN ---
Subjective Remarks/Hospital Course Hospital Course: 81-year-old female presents with abdominal pain that began about 6 hours duration. The patient states that she has a history of multiple bowel obstructions; prior abdominal surgeries also include hysterectomy, oophorectomy , lysis of adhesions, cholecystectomy, appendectomy, fundoplication. CT abdomen reveals hollow viscous perforation with both retro and intraperitoneal air. Noteworthy is dilated common biliary duct at 1.5 cm s/p cholecystectomy. Clearly an acute abdomen requiring resuscitation, correction of coumadin coagulopathy, and operative repair. A stent is in place in the proximal SMA. Subjective: 01/16: intubated, sedated. leukopenic this morning. mildly hypotensive, receiving ivf bolus. lactate cleared. 01/17: remains intubated. remains marginally hypotensive overnight. however, clinically improving. awake, alert, following commands. uop remains adequate. lactate cleared. hgb stable. more hypoglycemic today and sodium rising. Objective Vital Signs Date Time Temp Pulse Resp B/P Pulse Ox O2 Delivery O2 Flow Rate FiO2 01/17/17 10:00 103 01/17/17 08:00 98.2 19 96/42 90 01/17/17 08:00 30 01/17/17 07:00 Mechanical Ventilator 01/15/17 22:30 10.00 Intake and Output 01/16/17 01/16/17 01/17/17 08:00 16:00 00:00 Intake Total 7361 ml 1446 ml 1100 ml Output Total 2280 ml 925 ml 690 ml Balance 5081 ml 521 ml 410 ml Result Diagram: 01/17/17 0812 01/17/17 0230 Other Results Laboratory Tests Test 01/16/17 15:28 Blood Gas Puncture Site ART LINE Blood Gas Patient Temperature 98.6 Blood Gas HCO3 19 mmol/L (22-26) Blood Gas Base Excess -5.4 mmol/L (-2-2) Blood Gas Oxygen Saturation 93 % (90-100) Arterial Blood pH 7.36 (7.380-7.420) Arterial Blood Partial 35 mmHg (38-42) Pressure CO2 Arterial Blood Partial 77 mmHg Pressure O2 (61-120) Arterial Blood Oxygen Content 11.4 Vol % (12.0-20.0) Arterial Blood 2.0 % (0-4) Carboxyhemoglobin Arterial Blood Methemoglobin 1.0 % (0-2) Blood Gas Hemoglobin 8.7 G/DL (12.0-16.0) Oxygen Delivery Device VENTILATOR Blood Gas Ventilator Setting PRVC/16/450/+5 Blood Gas Inspired Oxygen 21 % Imaging Last Impressions Abdomen X-Ray 01/16/17 0000 Signed Impressions: Service Date/Time: Monday, January 16, 2017 14:24 - CONCLUSION: No acute abnormality seen. Mitch North MD Abdomen/Pelvis CT 01/15/17 1712 Signed Impressions: Service Date/Time: Sunday, January 15, 2017 18:38 - CONCLUSION: 1. Retroperitoneal air with smaller volume pneumoperitoneum. There is a dilated stomach as well as dilated loops of small bowel throughout the abdomen without obstructing mass or focal transition point. The retroperitoneal air raises concern for perforated gastric or duodenal ulcer. No abscess observed. The dilated bowel could relate to a distal small bowel obstruction or ileus. 2. Colonic diverticulosis without acute inflammation. 3. Intrahepatic and extra hepatic biliary dilatation. The intrahepatic component is slightly more pronounced than the prior study. The gallbladder is surgically absent. Michael Boo Jr., MD Objective Remarks Head: Normal. Neck: Supple, airway widely patent. Lungs: intubated, Clear, no wheezes or crackles. prvc, peep 5, fio2 40%. Heart: tachycardic rate, 108 on my exam. regular rhythm, sinus by tele. Abdomen: mildly distended, mildly tender. CHRIS with minimal sanguinous output, significantly decreased from yesterday. g-tube in place to gravity. Extremities: warm, well perfused. Neuro: RASS -1. intubated, fc x 4. A/P Assessment and Plan Assessment: 81yF POD 2 s/p ex-lap, ANDI, small bowel resection with g-tube placement now complicated by persistent hypovolemia which is resolving and hypoxic respiratory failure, which is also slowly resolving. Will attempt SBT and trial extubation if she passes. will start D10w for her hypoglycemia and it will also add free water to aid in her hypernatremia. she remains npo and I will let gen surg guide when we use her GI tract. multiple comorbidities, high risk of complications. will remain in the ICU. Plan by systems: Neurologic: Acute pain secondary to surgical procedure- stable. Fentanyl, propofol for goal RASS -2 Tylenol as needed for pain or fever -- will add prn dilaudid. Respiratory: Acute hypoxic and hypercarbic respiratory failure- improving. Vent bundle Head of bed 30 Wean FiO2 for goal SPO2 greater than 90% SBT today. would consider trial of extubation if she passes. Cardiovascular: Persistent hypotension- resolving. Hypovolemic shock- resolved. saline lock ivf --d10w @ 42cc/hr. continue cvl for today. Trend CVP Renal: Continue Parisi for close monitoring of urine output given her relative hypotension. -- Strict I/Os FEN/GI: Acute protein calorie malnutritionsevere Perforated hollow viscus Status post expiratory laparotomy, lysis of adhesions, small bowel resection, G- tube placement 01/16 Hypernatremia Free Water Deficit Nothing by mouth G-tube and NG tube to suction/gravity Close monitoring of CHRIS drain GEN surgeon: Rolando --ICU electrolyte protocol -- daily bmp -- d10w for hypernatremia and free water deficit Heme/ID: Anemia secondary to acute blood loss Intra-abdominal Sepsis Serial hemoglobins Slightly trending down does not meet transfusion triggers at this time. Continue Zosyn, would anticipate 4 day course, currently day 2. Endocrine: Hyperglycemia of critical illness -- SSI, every 6, medium scale Prophylaxis: GI Prophylaxis Protonix DVT Prophylaxis -- SCDs Holding pharmacologic DVT prophylaxis at least 1 more day given continued CHRIS drain output and slowly dropping hgb. Lines: Arterial line 01/16 right IJ cvl 01/16, keep today. Isak, keep this as we are actively monitoring urine output Dispo: Remain in the ICU. Gautam Jones MD Jan 17, 2017 10:42 patient, review of the medical record, discussions with family, consultants, nursing staff, or respiratory therapy, and documentation in the medical record. Gautam Jones MD Jan 17, 2017 10:42
[2017-01-17] MEDS ORDERED: DEXTROSE 50% IN WATER 50 ML SYRINGE ONE ×2 (12:18→13:07)
[2017-01-17 13:17] LABS: HEMATOCRIT 24.4 % (35.0-46.0); REVIEW FLAG FINAL
--- NOTE | 2017-01-17 14:46 | HHI.PR ---
Subjective Subjective Notes pain controlled extubated yesterday Objective Vitals/I&O Vital Signs Date Time Temp Pulse Resp B/P Pulse Ox O2 Delivery O2 Flow Rate FiO2 01/17/17 12:40 94 Nasal Cannula 4 01/17/17 12:00 40 01/17/17 12:00 98.6 111 14 117/49 Labs Laboratory Tests Test 01/16/17 01/16/17 01/16/17 01/17/17 15:28 15:33 21:00 02:30 Blood Gas Puncture Site ART LINE Blood Gas Patient Temperature 98.6 Blood Gas HCO3 19 Blood Gas Base Excess -5.4 Blood Gas Oxygen Saturation 93 Arterial Blood pH 7.36 Arterial Blood Partial 35 Pressure CO2 Arterial Blood Partial 77 Pressure O2 Arterial Blood Oxygen Content 11.4 Arterial Blood 2.0 Carboxyhemoglobin Arterial Blood Methemoglobin 1.0 Blood Gas Hemoglobin 8.7 Oxygen Delivery Device VENTILATOR Blood Gas Ventilator Setting PRVC/16/450/+5 Blood Gas Inspired Oxygen 21 Lactic Acid Level 1.5 Hemoglobin 10.4 9.7 Hematocrit 30.7 28.8 White Blood Count 13.6 Red Blood Count 3.40 Mean Corpuscular Volume 84.7 Mean Corpuscular Hemoglobin 28.5 Mean Corpuscular Hemoglobin 33.7 Concent Red Cell Distribution Width 16.0 Platelet Count 151 Mean Platelet Volume 8.2 Sodium Level 149 Potassium Level 3.1 Chloride Level 118 Carbon Dioxide Level 22.3 Anion Gap 9 Blood Urea Nitrogen 21 Creatinine 0.70 Estimat Glomerular Filtration 81 Rate Random Glucose 110 Calcium Level 5.4 Protein Corrected Calcium 6.5 Total Protein 4.4 Test 01/17/17 01/17/17 08:12 12:50 Hemoglobin 9.4 8.1 Hematocrit 28.1 24.4 Potassium Level 4.1 Abdomen: Post-op tenderness A/P Assessment and Plan 81yo female s/p exlap, ANDI, g-tube, small bowel resection, stable. - DC NG, leave g-tube to gravity - continue supportive care, would expect long PO ileus due to chronic obstruction and large surgery, will likely need TPN - ok to floor Srinivasan Brown MD Jan 17, 2017 14:46
[2017-01-17] MEDS: PANTOPRAZOLE SODIUM 40 MG VIAL IV PUSH SCH (19:05)
[2017-01-17] MEDS: HYDROmorphone HCL PF 1 MG/ML VIAL IV PUSH PRN (19:05)
[2017-01-17 20:56] LABS: HEMATOCRIT 25.4 % (35.0-46.0); REVIEW FLAG FINAL
[2017-01-18] VITALS (18 sets, daily range): BP systolic 97–138; BP diastolic 48–60; PULSE 105–121; RESP 15–37; TEMP 97.5–99.3; O2SAT 89–100
[2017-01-18 02:48] LABS: HEMATOCRIT 25.7 % (35.0-46.0); MEAN CELL VOLUME 84.1 FL (80.0-100.0); MEAN CORPUSCULAR HEMOGLOBIN 29.2 PG (27.0-34.0); MEAN CORPUSCULAR HGB CONC 34.7 % (32.0-36.0); PLATELET COUNT 142 TH/MM3 (150-450); RED BLOOD COUNT 3.06 MIL/MM3 (4.00-5.30); RED CELL DISTRIBUTION WIDTH 15.7 % (11.6-17.2); REVIEW FLAG FINAL; WHITE BLOOD COUNT 13.6 TH/MM3 (4.0-11.0)
[2017-01-18] MEDS: RESP: ALBUTEROL 2.5 MG/IPRATROPIUM 0.5 MG NEB (SCH) INH ×4 (03:13→20:35)
[2017-01-18 03:14] LABS: BICARBONATE 21.9 MEQ/L (21.0-32.0); POTASSIUM 3.3 MEQ/L (3.5-5.1)
[2017-01-18] MEDS: HYDROmorphone HCL PF 1 MG/ML VIAL IV PUSH PRN ×5 (03:25→20:46)
[2017-01-18 03:28] LABS: CALCIUM-PROTEIN CORRECTED 7.6 MG/DL (8.5-10.1)
[2017-01-18] MEDS: PIPERACIL-TAZO 4.5 GM PREMIX 100 ML IV SCH ×3 (03:31→19:51)
[2017-01-18] MEDS: POTASSIUM CHLOR 40 MEQ PREMIX 100 ML IV PRN (03:47)
[2017-01-18] MEDS: INSULIN NovoLIN REGULAR SUPPLEMENTAL SCALE SQ SCH ×4 (06:00→17:03)
[2017-01-18] MEDS: CHLORHEXIDINE GLUCONATE 2 % 1 PACK (2 CLOTHS) TOP SCH (06:12)
[2017-01-18] MEDS: CHLORHEXIDINE 0.12% (ORAL KIT) 15 ML CUP MT SCH ×2 (07:47→19:51)
[2017-01-18] MEDS ORDERED: FUROSEMIDE 20 MG/2 ML VIAL IV PUSH ONE ×2 (10:00→15:15)
[2017-01-18] MEDS: DEXTROSE 10% INJ 1,000 ML IV SCH ×2 (10:21→17:03)
--- NOTE | 2017-01-18 13:18 | HHI.PR ---
Subjective Subjective Notes Resting in bed RT at bedside giving breathing treatment at bedside visiting; very pleased with the care she is receiving from the [facility] staff Objective Vitals/I&O Vital Signs Date Time Temp Pulse Resp B/P Pulse Ox O2 Delivery O2 Flow Rate FiO2 01/18/17 12:00 109 01/18/17 12:00 98.3 21 103/53 92 106/48 01/18/17 11:00 Venturi Mask 7.00 50 Labs Laboratory Tests Test 01/17/17 01/17/17 01/18/17 17:31 20:00 02:30 Random Glucose 215 128 Hemoglobin 8.6 8.9 Hematocrit 25.4 25.7 White Blood Count 13.6 Red Blood Count 3.06 Mean Corpuscular Volume 84.1 Mean Corpuscular Hemoglobin 29.2 Mean Corpuscular Hemoglobin 34.7 Concent Red Cell Distribution Width 15.7 Platelet Count 142 Mean Platelet Volume 8.0 Sodium Level 144 Potassium Level 3.3 Chloride Level 115 Carbon Dioxide Level 21.9 Anion Gap 7 Blood Urea Nitrogen 16 Creatinine 0.59 Estimat Glomerular Filtration 98 Rate Calcium Level 6.4 Protein Corrected Calcium 7.6 Total Protein 4.6 Cardiovascular: Regular Lungs: Clear Abdomen: Other (midline incision with moderate SS drainage at inferior portion of incision---stapled; G tube to gravity; CHRIS drain with SS drainage ) Extremities: No edema A/P Assessment and Plan 81 year old female POD2 ex lap; ANDI; G tube placement; Small bowel resection -Keep G tube to gravity -Continue to monitor output of CHRIS -NPO -Dressing change: Primapore dressing to midline incision; change daily and PRN -Await bowel function -Labs daily Attending Statement The exam, history, and the medical decision-making described in the above note were completed with the assistance of the mid-level provider. I reviewed and agree with the findings presented. I attest that I had a [id number] encounter with the patient on the same day, and personally performed and documented my assessment and findings in the medical record. abdominal exam stable postop, soft, surgical drain clear continue supportive care per [facility] Kimberli Jarrett Jan 18, 2017 13:18 Srinivasan Brown MD Jan 20, 2017 13:44
[2017-01-18 16:17] LABS: BICARBONATE 24.2 MEQ/L (21.0-32.0); POTASSIUM 3.5 MEQ/L (3.5-5.1)
[2017-01-18 16:33] LABS: CALCIUM-PROTEIN CORRECTED 7.8 MG/DL (8.5-10.1)
[2017-01-18] MEDS: PANTOPRAZOLE SODIUM 40 MG VIAL IV PUSH SCH (17:03)
--- NOTE | 2017-01-18 18:28 | HHI.CCPN ---
Subjective Remarks/Hospital Course Hospital Course: 81-year-old female presents with abdominal pain that began about 6 hours duration. The patient states that she has a history of multiple bowel obstructions; prior abdominal surgeries also include hysterectomy, oophorectomy , lysis of adhesions, cholecystectomy, appendectomy, fundoplication. CT abdomen reveals hollow viscous perforation with both retro and intraperitoneal air. Noteworthy is dilated common biliary duct at 1.5 cm s/p cholecystectomy. Clearly an acute abdomen requiring resuscitation, correction of coumadin coagulopathy, and operative repair. A stent is in place in the proximal SMA. Subjective: 01/16: intubated, sedated. leukopenic this morning. mildly hypotensive, receiving ivf bolus. lactate cleared. 01/17: remains intubated. remains marginally hypotensive overnight. however, clinically improving. awake, alert, following commands. uop remains adequate. lactate cleared. hgb stable. more hypoglycemic today and sodium rising. 01/18: seen and examined around 07:30am, delayed note entry. extubated yesterday. initially doing well, now this morning more hypoxic requiring 50% venti mask. cxr with evidence of pulmonary edema. s/p large volume pulmonary edema. Objective Vital Signs Date Time Temp Pulse Resp B/P Pulse Ox O2 Delivery O2 Flow Rate FiO2 01/18/17 18:00 117 01/18/17 16:00 99.3 21 97/49 94 105/48 01/18/17 15:05 Venturi Mask 6.00 50 Intake and Output 01/17/17 01/17/17 01/18/17 08:00 16:00 00:00 Intake Total 1435 ml 1076 ml 741 ml Output Total 721 ml 765 ml 765 ml Balance 714 ml 311 ml -24 ml Result Diagram: 01/18/17 0230 01/18/17 1520 Imaging Last Impressions Abdomen X-Ray 01/16/17 0000 Signed Impressions: Service Date/Time: Monday, January 16, 2017 14:24 - CONCLUSION: No acute abnormality seen. Mitch North MD Abdomen/Pelvis CT 01/15/17 1712 Signed Impressions: Service Date/Time: Sunday, January 15, 2017 18:38 - CONCLUSION: 1. Retroperitoneal air with smaller volume pneumoperitoneum. There is a dilated stomach as well as dilated loops of small bowel throughout the abdomen without obstructing mass or focal transition point. The retroperitoneal air raises concern for perforated gastric or duodenal ulcer. No abscess observed. The dilated bowel could relate to a distal small bowel obstruction or ileus. 2. Colonic diverticulosis without acute inflammation. 3. Intrahepatic and extra hepatic biliary dilatation. The intrahepatic component is slightly more pronounced than the prior study. The gallbladder is surgically absent. Michael Boo Jr., MD Objective Remarks Head: Normal. Neck: Supple, airway widely patent. Lungs: extubated, bibasilar crackles. 50% venti mask. mild distress. Heart: tachycardic rate, regular rhythm, sinus by tele. Abdomen: mildly distended, mildly tender. CHRIS with minimal serosanguinous output. g-tube in place to gravity. Extremities: warm, well perfused. Neuro: RASS -1. fc x 4. A/P Assessment and Plan Assessment: 81yF POD 3 s/p ex-lap, ANDI, small bowel resection with g-tube placement now extubated. remobilizing fluid and in moderate pulmonary edema. will aggressively diurese. cannot stop free water replacement and dextrose as she remains hypoglycemic and hypernatremic. very complex with multiple medical problems as well as competing medical needs, volume overloaded requiring additional free water replacement and dextrose. Plan by systems: Neurologic: Acute pain secondary to surgical procedure- stable. Tylenol as needed for pain or fever -- prn dilaudid. Respiratory: Acute hypoxic and hypercarbic respiratory failure- was improving, now worsening. Pulmonary Edema Wean o2 for goal SPO2 greater than 90% aggressive pulm toilet. --nebs prn -- PT consult. OOB. -- diuresis as below. Cardiovascular: Hypervolemia Pulmonary edema saline lock ivf --d10w @ 30cc/hr. continue cvl for today. Trend CVP -- lasix 20mg iv x 1 at 0700, again at 1400. -- plan for lasix 40mg iv q8hr Renal: Continue Parisi for close monitoring of urine output given her relative hypotension. -- Strict I/Os FEN/GI: Acute protein calorie malnutritionsevere Perforated hollow viscus Status post expiratory laparotomy, lysis of adhesions, small bowel resection, G- tube placement 01/16 Hypernatremia Free Water Deficit Nothing by mouth G-tube and NG tube to suction/gravity Close monitoring of CHRIS drain GEN surgeon: Gamenthaller --ICU electrolyte protocol -- daily bmp -- d10w for hypernatremia and free water deficit -- afternoon bmp. aggressive electrolyte replacement. Heme/ID: Anemia secondary to acute blood loss Intra-abdominal Sepsis Serial hemoglobins Slightly trending down does not meet transfusion triggers at this time. Continue Zosyn, would anticipate 4 day course, currently day 3. if clinically stable, would consider d/c tomorrow (01/19) Endocrine: Hyperglycemia of critical illness -- SSI, every 6, medium scale Prophylaxis: GI Prophylaxis Protonix DVT Prophylaxis -- SCDs restart SQH. Lines: Arterial line 01/16 right IJ cvl 01/16, keep today given electrolyte replacement and cvp trending in pulmonary edema. Isak, keep this as we are actively monitoring urine output Dispo: Remain in the ICU. Gautam Jones MD Jan 18, 2017 18:28
[2017-01-18] MEDS: FUROSEMIDE 40 MG/4 ML VIAL IV PUSH SCH (20:44)
[2017-01-18] MEDS: HEPARIN SODIUM - SQ 10,000 UNITS/ML VIAL SQ SCH (20:45)
[2017-01-19] VITALS (20 sets, daily range): BP systolic 91–138; BP diastolic 44–64; PULSE 101–123; RESP 16–20; TEMP 98.5–100.3; O2SAT 92–100
[2017-01-19] MEDS: HYDROmorphone HCL PF 1 MG/ML VIAL IV PUSH PRN ×3 (02:30→09:50)
[2017-01-19] MEDS: RESP: ALBUTEROL 2.5 MG/IPRATROPIUM 0.5 MG NEB (SCH) INH ×3 (03:25→19:56)
[2017-01-19] MEDS: PIPERACIL-TAZO 4.5 GM PREMIX 100 ML IV SCH ×3 (03:47→20:26)
[2017-01-19] MEDS: CHLORHEXIDINE GLUCONATE 2 % 1 PACK (2 CLOTHS) TOP SCH (03:47)
[2017-01-19] MEDS: FUROSEMIDE 40 MG/4 ML VIAL IV PUSH SCH (04:04)
[2017-01-19 04:17] LABS: MEAN CELL VOLUME 84.7 FL (80.0-100.0); MEAN CORPUSCULAR HEMOGLOBIN 28.6 PG (27.0-34.0); MEAN CORPUSCULAR HGB CONC 33.8 % (32.0-36.0); PLATELET COUNT 156 TH/MM3 (150-450); RED BLOOD COUNT 2.95 MIL/MM3 (4.00-5.30); RED CELL DISTRIBUTION WIDTH 15.3 % (11.6-17.2); REVIEW FLAG FINAL; WHITE BLOOD COUNT 17.9 TH/MM3 (4.0-11.0)
[2017-01-19 04:31] LABS: BICARBONATE 27.2 MEQ/L (21.0-32.0); POTASSIUM 3.5 MEQ/L (3.5-5.1)
[2017-01-19] MEDS: POTASSIUM CHLOR 40 MEQ PREMIX 100 ML IV PRN (04:40)
[2017-01-19] MEDS: INSULIN NovoLIN REGULAR SUPPLEMENTAL SCALE SQ SCH ×4 (06:00→18:00)
[2017-01-19] MEDS: CHLORHEXIDINE 0.12% (ORAL KIT) 15 ML CUP MT SCH ×2 (07:51→20:25)
[2017-01-19] MEDS: HEPARIN SODIUM - SQ 10,000 UNITS/ML VIAL SQ SCH ×2 (07:53→20:25)
[2017-01-19] MEDS ORDERED: MIDAZOLAM HCL 5 MG/ML VIAL (1 ML) ONE ×2 (09:44)
[2017-01-19] MEDS ORDERED: ROCURONIUM INJ 50 MG/5 ML VIAL ONE (09:44)
[2017-01-19] MEDS ORDERED: PROPOFOL 1000 MG/100 ML INJ 100 ML ONE (09:55)
--- NOTE | 2017-01-19 10:42 | HHI.CCPN ---
Subjective Remarks/Hospital Course Hospital Course: 81-year-old female presents with abdominal pain that began about 6 hours duration. The patient states that she has a history of multiple bowel obstructions; prior abdominal surgeries also include hysterectomy, oophorectomy , lysis of adhesions, cholecystectomy, appendectomy, fundoplication. CT abdomen reveals hollow viscous perforation with both retro and intraperitoneal air. Noteworthy is dilated common biliary duct at 1.5 cm s/p cholecystectomy. Clearly an acute abdomen requiring resuscitation, correction of coumadin coagulopathy, and operative repair. A stent is in place in the proximal SMA. Subjective: 01/16: intubated, sedated. leukopenic this morning. mildly hypotensive, receiving ivf bolus. lactate cleared. 01/17: remains intubated. remains marginally hypotensive overnight. however, clinically improving. awake, alert, following commands. uop remains adequate. lactate cleared. hgb stable. more hypoglycemic today and sodium rising. 01/18: seen and examined around 07:30am, delayed note entry. extubated yesterday. initially doing well, now this morning more hypoxic requiring 50% venti mask. cxr with evidence of pulmonary edema. s/p large volume pulmonary edema. 01/19: Worsening oxygenation requiring intubation and mechanical ventilation. Gas exchange acceptable on vent. Perfusion and hydration is acceptable. Objective Vital Signs Date Time Temp Pulse Resp B/P Pulse Ox O2 Delivery O2 Flow Rate FiO2 01/19/17 09:55 95 70 01/19/17 08:18 Simple Mask 6.01/19/17 06:46 20 01/19/17 06:00 123 01/19/17 04:00 98.5 98/49 91/44 Intake and Output 01/18/17 01/18/17 01/19/17 08:00 16:00 00:00 Intake Total 839 ml 583 ml 533 ml Output Total 615 ml 1760 ml 2280 ml Balance 224 ml -1177 ml -1747 ml Result Diagram: 01/19/17 0400 01/19/17 0400 Imaging Last Impressions Abdomen X-Ray 01/16/17 0000 Signed Impressions: Service Date/Time: Monday, January 16, 2017 14:24 - CONCLUSION: No acute abnormality seen. Mitch North MD Abdomen/Pelvis CT 01/15/17 1712 Signed Impressions: Service Date/Time: Sunday, January 15, 2017 18:38 - CONCLUSION: 1. Retroperitoneal air with smaller volume pneumoperitoneum. There is a dilated stomach as well as dilated loops of small bowel throughout the abdomen without obstructing mass or focal transition point. The retroperitoneal air raises concern for perforated gastric or duodenal ulcer. No abscess observed. The dilated bowel could relate to a distal small bowel obstruction or ileus. 2. Colonic diverticulosis without acute inflammation. 3. Intrahepatic and extra hepatic biliary dilatation. The intrahepatic component is slightly more pronounced than the prior study. The gallbladder is surgically absent. Michael Boo Jr., MD Objective Remarks Head: Normal. Neck: Supple Lungs: extubated, bibasilar crackles. Orally intubated today. Heart: tachycardic rate, regular rhythm, sinus by tele. Abdomen: mildly distended, mildly tender. CHRIS with minimal sero-sanguinous output. g-tube in place to gravity. Extremities: Tepid, digits cool, blue nailbeds. Neuro: RASS -1. Moves 4 limbs spontaneously and with purpose. A/P Assessment and Plan Assessment: 81yF POD 3 s/p ex-lap, ANDI, small bowel resection with g-tube placement now extubated. remobilizing fluid and in moderate pulmonary edema. will aggressively diurese. cannot stop free water replacement and dextrose as she remains hypoglycemic and hypernatremic. very complex with multiple medical problems as well as competing medical needs, volume overloaded requiring additional free water replacement and dextrose. Plan by systems: Neurologic: Acute pain secondary to surgical procedure- stable. Tylenol as needed for pain or fever -- prn dilaudid. -- continues to have sever abdominal pain Respiratory: Acute hypoxic and hypercarbic respiratory failure- was improving, now worsening. Pulmonary Edema -- PRVC vent mode, daily SBTs. Cardiovascular: Hypervolemia Pulmonary edema saline lock ivf --d10w @ 30cc/hr. continue cvl for today. Trend CVP -- plan for lasix 40mg iv q8hr Renal: Continue Parisi for close monitoring of urine output given her relative hypotension. -- Strict I/Os FEN/GI: Acute protein calorie malnutritionsevere Perforated hollow viscus Status post expiratory laparotomy, lysis of adhesions, small bowel resection, G- tube placement 6 Hypernatremia Free Water Deficit Nothing by mouth G-tube and NG tube to suction/gravity Close monitoring of CHRIS drain GEN surgeon: Rolando --ICU electrolyte protocol -- daily bmp -- d10w for hypernatremia and free water deficit -- afternoon bmp. aggressive electrolyte replacement. Heme/ID: Anemia secondary to acute blood loss Intra-abdominal Sepsis Serial hemoglobins Slightly trending down does not meet transfusion triggers at this time. Continue Zosyn, would anticipate 4 day course, currently day 3. if clinically stable, would consider d/c tomorrow (01/19) Endocrine: Hyperglycemia of critical illness -- SSI, every 6, medium scale Prophylaxis: GI Prophylaxis Protonix DVT Prophylaxis -- SCDs restart SQH. Lines: Arterial line 01/16 right IJ cvl 01/16, keep today given electrolyte replacement and cvp trending in pulmonary edema. Parisi, keep this as we are actively monitoring urine output Dispo: Remain in the ICU. Overall impression: Critically ill with deteriorating pulmonary function requiring re-intubation and mechanical ventilation. Critical Care 45 mins aside from procedures Shyam La MD Jan 19, 2017 10:42
--- NOTE | 2017-01-19 10:44 | PD.PROCEDR ---
Procedure Note Procedure DX: Hypoxemic Respiratory Failure (J96.01) OP: Orotracheal Intubation (92596) Procedure: Bag mask ventilation. Versed 3 mg iv. Intubated orally with 7.5 tube. Position confirmed with CO2 detection, breath sounds, improved sats. CXR ordered, will review. Shyam La MD Jan 19, 2017 10:44
[2017-01-19] MEDS: PROPOFOL 1000 MG/100 ML INJ 100 ML IV SCH (10:56)
[2017-01-19 10:59] LABS: BLOOD GAS BASE EXCESS -1.2 mmol/L (-2-2); BLOOD GAS CARBOXYHEMOGLOBIN 1.4 % (0-4); BLOOD GAS HCO3 23 mmol/L (22-26); BLOOD GAS METHEMOGLOBIN 0.8 % (0-2); BLOOD GAS O2 HGB SATURATION 97 % (90-100); BLOOD GAS OXYGEN CONTENT 19.6 Vol % (12.0-20.0); BLOOD GAS PCO2 41 mmHg (38-42); BLOOD GAS PO2 230 mmHg (61-120); CRITICAL VALUE NO; OXYGEN DEVICE VENTILATOR; TEMP CORR TO 98.6
[2017-01-19 11:01] LABS: DRAW SITE ART LINE; FIO2 70 %; STAT NO; VENT SETTINGS SEE COMMENTS
[2017-01-19] MEDS ORDERED: TERBUTALINE INJ 1 MG/ML AMP SQ PRN (11:30)
--- NOTE | 2017-01-19 11:36 | RADRPT ---
EXAM DATE/TIME: 01/19/2017 10:44 [facility] COMPARISON: CHEST SINGLE AP, January 17, 2017, 3:36. INDICATIONS : Post intubation. MEDICAL HISTORY : Cardiovascular disease. Multiple bowel obstructions SURGICAL HISTORY : Cholecystectomy. Appendectomy.Bowel surgery x3 ENCOUNTER: Subsequent ACUITY: 4 - 6 days PAIN SCORE: Non-responsive. LOCATION: Bilateral chest FINDINGS: The endotracheal tube has its tip in the left mainstem bronchus. This should be pulled back 3 cm for more optimal positioning. Diffuse infiltrates are noted bilaterally consistent with pulmonary edema v ersus pneumonia. A right internal jugular central line has its tip at the junction of the right atriu m and superior vena cava. No pneumothorax is noted. Degenerative changes and scoliosis of the thoraco lumbar spine are noted. CONCLUSION: 1. Endotracheal tube has its tip in the left mainstem bronchus. This should be pulled back 3 cm for m ore optimal positioning. 2. Diffuse infiltrates consistent with pulmonary edema versus pneumonia. Clinical correlation is eli mmended. 3. Degenerative changes and scoliosis of the thoracolumbar spine. Meet Smith MD on January 19, 2017 at 11:32 Board Certified Radiologist. This report was verified electronically.
[2017-01-19] MEDS: NOREPINEPHRINE-DEXTROSE DRIP 250 ML IV SCH (12:28)
[2017-01-19] MEDS ORDERED: SODIUM CHLOR 0.9% 1000 ML INJ 1,000 ML IV ONE (12:45)
[2017-01-19] MEDS: ALBUMIN HUMAN 25% 25 GM/100 ML BAGP IV SCH ×2 (13:02→20:25)
[2017-01-19] MEDS: fentaNYL DRIP 250 ML IV SCH (13:10)
--- NOTE | 2017-01-19 13:23 | HHI.PR ---
Subjective Subjective Notes Dr. Garcias at bedside---setting up to intubate patient Patient with oxygenation issues and requiring re-intubation Objective Vitals/I&O Vital Signs Date Time Temp Pulse Resp B/P Pulse Ox O2 Delivery O2 Flow Rate FiO2 01/19/17 12:04 100 50 01/19/17 12:00 119 01/19/17 12:00 99.4 16 118/54 01/19/17 08:18 Simple Mask 6.00 Labs Laboratory Tests Test 01/18/17 01/19/17 01/19/17 01/19/17 15:20 04:00 10:50 11:52 Sodium Level 143 141 Potassium Level 3.5 3.5 Chloride Level 112 108 Carbon Dioxide Level 24.2 27.2 Anion Gap 7 6 Blood Urea Nitrogen 12 12 Creatinine 0.55 0.64 Estimat Glomerular Filtration 107 90 Rate Random Glucose 107 116 Calcium Level 6.6 6.8 Protein Corrected Calcium 7.8 8.0 Total Protein 4.7 4.8 White Blood Count 17.9 Red Blood Count 2.95 Hemoglobin 8.4 Hematocrit 25.0 Mean Corpuscular Volume 84.7 Mean Corpuscular Hemoglobin 28.6 Mean Corpuscular Hemoglobin 33.8 Concent Red Cell Distribution Width 15.3 Platelet Count 156 Mean Platelet Volume 8.0 Blood Gas Puncture Site ART LINE Blood Gas Patient Temperature 98.6 Blood Gas HCO3 23 Blood Gas Base Excess -1.2 Blood Gas Oxygen Saturation 97 Arterial Blood pH 7.37 Arterial Blood Partial 41 Pressure CO2 Arterial Blood Partial 230 Pressure O2 Arterial Blood Oxygen Content 19.6 Arterial Blood 1.4 Carboxyhemoglobin Arterial Blood Methemoglobin 0.8 Blood Gas Hemoglobin 14.0 Oxygen Delivery Device VENTILATOR Blood Gas Ventilator Setting SEE COMMENTS Blood Gas Inspired Oxygen 70 B-Type Natriuretic Peptide 110 Cardiovascular: Regular Lungs: Clear Abdomen: Other (midline incision; abd soft; non distended; CHRIS with SS drainage ) Extremities: No edema A/P Assessment and Plan 81 year old female POD3 ex lap; ANDI; G tube placement; Small bowel resection -CCM following---VDRF ---re-intubated this morning -Start TPN today -Keep G tube to gravity -Continue to monitor output of CHRIS -NPO -Dressing change: Primapore dressing to midline incision; change daily and PRN -Await bowel function -Labs daily Attending Statement The exam, history, and the medical decision-making described in the above note were completed with the assistance of the mid-level provider. I reviewed and agree with the findings presented. I attest that I had a [id number] encounter with the patient on the same day, and personally performed and documented my assessment and findings in the medical record. abdominal exam stable, less distended, continue g-tube to gravity, start TPN for PCM Kimberli Jarrett Jan 19, 2017 13:23 Srinivasan Brown MD Jan 20, 2017 13:53
[2017-01-19] MEDS: DEXTROSE 10% INJ 1,000 ML IV SCH (17:58)
[2017-01-19] MEDS: PANTOPRAZOLE SODIUM 40 MG VIAL IV PUSH SCH (18:15)
[2017-01-19] MEDS ORDERED: CHLORHEXIDINE 0.12% (ORAL KIT) 15 ML CUP MT SCH (20:00)
[2017-01-19] MEDS: CLINIMIX E 4.25/25 2000 mL- >42 mls/hr IV-CENTRAL SCH ×3 (21:44)
[2017-01-19] MEDS: FAT EMULSION 20% INJ 250 ML (Daily over 8 hours) IV-CENTRAL SCH (21:44)
[2017-01-20] VITALS (20 sets, daily range): BP systolic 102–130; BP diastolic 40–51; PULSE 96–122; RESP 16–20; TEMP 98.7–101.5; O2SAT 93–100
[2017-01-20] MEDS: NOREPINEPHRINE-DEXTROSE DRIP 250 ML IV SCH ×3 (00:20→22:17)
[2017-01-20] MEDS: RESP: ALBUTEROL 2.5 MG/IPRATROPIUM 0.5 MG NEB (SCH) INH ×4 (02:23→20:40)
[2017-01-20] MEDS: PIPERACIL-TAZO 4.5 GM PREMIX 100 ML IV SCH (03:12)
[2017-01-20] MEDS: PROPOFOL 1000 MG/100 ML INJ 100 ML IV SCH ×2 (03:12→18:47)
[2017-01-20] MEDS: CHLORHEXIDINE GLUCONATE 2 % 1 PACK (2 CLOTHS) TOP SCH (04:00)
[2017-01-20 04:57] LABS: BLOOD GAS BASE EXCESS -2.6 mmol/L (-2-2); BLOOD GAS CARBOXYHEMOGLOBIN 1.5 % (0-4); BLOOD GAS HCO3 23 mmol/L (22-26); BLOOD GAS METHEMOGLOBIN 0.9 % (0-2); BLOOD GAS O2 HGB SATURATION 92 % (90-100); BLOOD GAS OXYGEN CONTENT 12.8 Vol % (12.0-20.0); BLOOD GAS PCO2 46 mmHg (38-42); BLOOD GAS PO2 73 mmHg (61-120); BLOOD GAS TOTAL HGB 9.8 G/DL (12.0-16.0); TEMP CORR TO 98.6
[2017-01-20 04:58] LABS: CRITICAL VALUE NO; DRAW SITE ART LINE; FIO2 70 %; OXYGEN DEVICE VENTILATOR; STAT NO; VENT SETTINGS AC/16/425/PEEP 5
[2017-01-20 05:20] LABS: MEAN CELL VOLUME 84.6 FL (80.0-100.0); MEAN CORPUSCULAR HEMOGLOBIN 28.8 PG (27.0-34.0); MEAN CORPUSCULAR HGB CONC 34.1 % (32.0-36.0); PLATELET COUNT 142 TH/MM3 (150-450); RED BLOOD COUNT 2.48 MIL/MM3 (4.00-5.30); REVIEW FLAG FINAL; WHITE BLOOD COUNT 14.3 TH/MM3 (4.0-11.0)
[2017-01-20] MEDS: ALBUMIN HUMAN 25% 25 GM/100 ML BAGP IV SCH (05:39)
[2017-01-20] MEDS: fentaNYL DRIP 250 ML IV SCH ×2 (05:42→21:02)
[2017-01-20 05:49] LABS: BICARBONATE 25.7 MEQ/L (21.0-32.0); POTASSIUM 3.2 MEQ/L (3.5-5.1)
[2017-01-20] MEDS: INSULIN NovoLIN REGULAR SUPPLEMENTAL SCALE SQ SCH ×4 (06:00→18:00)
[2017-01-20 06:08] LABS: CALCIUM-PROTEIN CORRECTED 7.6 MG/DL (8.5-10.1)
--- NOTE | 2017-01-20 08:28 | HHI.CCPN ---
Subjective Remarks/Hospital Course Hospital Course: 81-year-old female presents with abdominal pain that began about 6 hours duration. The patient states that she has a history of multiple bowel obstructions; prior abdominal surgeries also include hysterectomy, oophorectomy , lysis of adhesions, cholecystectomy, appendectomy, fundoplication. CT abdomen reveals hollow viscous perforation with both retro and intraperitoneal air. Noteworthy is dilated common biliary duct at 1.5 cm s/p cholecystectomy. Clearly an acute abdomen requiring resuscitation, correction of coumadin coagulopathy, and operative repair. A stent is in place in the proximal SMA. Subjective: 01/16: intubated, sedated. leukopenic this morning. mildly hypotensive, receiving ivf bolus. lactate cleared. 01/17: remains intubated. remains marginally hypotensive overnight. however, clinically improving. awake, alert, following commands. uop remains adequate. lactate cleared. hgb stable. more hypoglycemic today and sodium rising. 01/18: seen and examined around 07:30am, delayed note entry. extubated yesterday. initially doing well, now this morning more hypoxic requiring 50% venti mask. cxr with evidence of pulmonary edema. s/p large volume pulmonary edema. 01/19: Worsening oxygenation requiring intubation and mechanical ventilation. Gas exchange acceptable on vent. Perfusion and hydration is acceptable. 01/20: Peripheral perfusion much improved after intubation and ventilator. Renal function acceptable. Too weak to attempt extubation today. Objective Vital Signs Date Time Temp Pulse Resp B/P Pulse Ox O2 Delivery O2 Flow Rate FiO2 01/20/17 07:51 99 60 01/20/17 06:00 120 01/20/17 04:00 101.5 20 130/51 01/19/17 19:00 Mechanical Ventilator 01/19/17 08:18 6.00 Intake and Output 01/19/17 01/19/17 01/20/17 08:00 16:00 00:00 Intake Total 613 ml 1007 ml 1186 ml Output Total 1320 ml 580 ml 450 ml Balance -707 ml 427 ml 736 ml Result Diagram: 01/20/17 0505 01/20/17 0505 Other Results Laboratory Tests Test 01/19/17 01/20/17 10:50 04:40 Blood Gas Puncture Site ART LINE ART LINE Blood Gas Patient Temperature 98.6 98.6 Blood Gas HCO3 23 mmol/L 23 mmol/L (22-26) (22-26) Blood Gas Base Excess -1.2 mmol/L -2.6 mmol/L (-2-2) (-2-2) Blood Gas Oxygen Saturation 97 % (90-100) 92 % (90-100) Arterial Blood pH 7.37 7.31 (7.380-7.420) (7.380-7.420) Arterial Blood Partial 41 mmHg (38-42) 46 mmHg (38-42) Pressure CO2 Arterial Blood Partial 230 mmHg 73 mmHg Pressure O2 (61-120) (61-120) Arterial Blood Oxygen Content 19.6 Vol % 12.8 Vol % (12.0-20.0) (12.0-20.0) Arterial Blood 1.4 % (0-4) 1.5 % (0-4) Carboxyhemoglobin Arterial Blood Methemoglobin 0.8 % (0-2) 0.9 % (0-2) Blood Gas Hemoglobin 14.0 G/DL 9.8 G/DL (12.0-16.0) (12.0-16.0) Oxygen Delivery Device VENTILATOR VENTILATOR Blood Gas Ventilator Setting SEE COMMENTS AC/16/425/PEEP 5 Blood Gas Inspired Oxygen 70 % 70 % Imaging Last Impressions Abdomen X-Ray 01/16/17 0000 Signed Impressions: Service Date/Time: Monday, January 16, 2017 14:24 - CONCLUSION: No acute abnormality seen. Mitch North MD Abdomen/Pelvis CT 01/15/17 1712 Signed Impressions: Service Date/Time: Sunday, January 15, 2017 18:38 - CONCLUSION: 1. Retroperitoneal air with smaller volume pneumoperitoneum. There is a dilated stomach as well as dilated loops of small bowel throughout the abdomen without obstructing mass or focal transition point. The retroperitoneal air raises concern for perforated gastric or duodenal ulcer. No abscess observed. The dilated bowel could relate to a distal small bowel obstruction or ileus. 2. Colonic diverticulosis without acute inflammation. 3. Intrahepatic and extra hepatic biliary dilatation. The intrahepatic component is slightly more pronounced than the prior study. The gallbladder is surgically absent. Michael Boo Jr., MD Objective Remarks Head: Normal. Neck: Supple Lungs: extubated, bibasilar crackles. Orally intubated today. Heart: tachycardic rate, regular rhythm, sinus by tele. Abdomen: mildly distended, mildly tender g-tube in place to gravity. Extremities: Warm, well perfused. Nail beds improved perfusion. Neuro: RASS -1. Moves 4 limbs spontaneously and with purpose. A/P Assessment and Plan Assessment: 81yF POD 3 s/p ex-lap, ANDI, small bowel resection with g-tube placement now extubated. remobilizing fluid and in moderate pulmonary edema. will aggressively diurese. cannot stop free water replacement and dextrose as she remains hypoglycemic and hypernatremic. very complex with multiple medical problems as well as competing medical needs, volume overloaded requiring additional free water replacement and dextrose. Plan by systems: Neurologic: Acute pain secondary to surgical procedure- stable. Tylenol as needed for pain or fever -- prn dilaudid. -- continues to have severe abdominal pain -- Fentanyl gtt while on vent. Respiratory: Acute hypoxic and hypercarbic respiratory failure- was improving, now worsening. Pulmonary Edema -- PRVC vent mode, daily SBTs. Cardiovascular: Hypervolemia Pulmonary edema saline lock ivf --d10w @ 30cc/hr. Wean off now that TPN started. continue cvl for today. Trend CVP -- d/c lasix 40mg iv q8hr Renal: Continue Parisi for close monitoring of urine output given her relative hypotension. -- Strict I/Os FEN/GI: Acute protein calorie malnutritionsevere Perforated hollow viscus Status post expiratory laparotomy, lysis of adhesions, small bowel resection, G- tube placement 01/16 Hypernatremia Free Water Deficit Nothing by mouth G-tube and NG tube to suction/gravity Close monitoring of CHRIS drain GEN surgeon: Rolando --ICU electrolyte protocol -- daily bmp -- d/c d10w -- afternoon bmp. aggressive electrolyte replacement. Heme/ID: Anemia secondary to acute blood loss Intra-abdominal Sepsis Serial hemoglobins Slightly trending down does not meet transfusion triggers at this time. Continue Zosyn, would anticipate 5 day course, currently day 5. Endocrine: Hyperglycemia of critical illness -- SSI, every 6, medium scale Prophylaxis: GI Prophylaxis Protonix DVT Prophylaxis -- SCDs restart SQH. Lines: Arterial line 01/16 right IJ cvl 01/16, keep today given electrolyte replacement and cvp trending in pulmonary edema. Parisi, keep this as we are actively monitoring urine output Dispo: Remain in the ICU. Overall impression: Critically ill with impaired pulmonary function requiring re -intubation and mechanical ventilation 01/19. Unable to waen vent today. Critical Care 38 mins aside from procedures Shyam La MD Jan 20, 2017 08:28
[2017-01-20] MEDS: CHLORHEXIDINE 0.12% (ORAL KIT) 15 ML CUP MT SCH ×2 (09:25→21:04)
[2017-01-20] MEDS: HEPARIN SODIUM - SQ 10,000 UNITS/ML VIAL SQ SCH ×2 (09:26→21:02)
[2017-01-20] MEDS: POTASSIUM CHLOR 20 MEQ PREMIX 100 ML IV PRN ×4 (12:06→16:27)
--- NOTE | 2017-01-20 15:38 | HHI.PR ---
Subjective Subjective Notes Intubated/Sedated Resting comfortable Objective Vitals/I&O Vital Signs Date Time Temp Pulse Resp B/P Pulse Ox O2 Delivery O2 Flow Rate FiO2 01/20/17 15:32 98 70 01/20/17 12:00 99.4 96 16 125/43 01/20/17 09:00 Mechanical Ventilator 01/19/17 08:18 6.00 Labs Laboratory Tests Test 01/20/17 01/20/17 04:40 05:05 Blood Gas Puncture Site ART LINE Blood Gas Patient Temperature 98.6 Blood Gas HCO3 23 Blood Gas Base Excess -2.6 Blood Gas Oxygen Saturation 92 Arterial Blood pH 7.31 Arterial Blood Partial 46 Pressure CO2 Arterial Blood Partial 73 Pressure O2 Arterial Blood Oxygen Content 12.8 Arterial Blood 1.5 Carboxyhemoglobin Arterial Blood Methemoglobin 0.9 Blood Gas Hemoglobin 9.8 Oxygen Delivery Device VENTILATOR Blood Gas Ventilator Setting AC/16/425/PEEP 5 Blood Gas Inspired Oxygen 70 White Blood Count 14.3 Red Blood Count 2.48 Hemoglobin 7.1 Hematocrit 21.0 Mean Corpuscular Volume 84.6 Mean Corpuscular Hemoglobin 28.8 Mean Corpuscular Hemoglobin 34.1 Concent Red Cell Distribution Width 15.0 Platelet Count 142 Mean Platelet Volume 7.6 Sodium Level 140 Potassium Level 3.2 Chloride Level 108 Carbon Dioxide Level 25.7 Anion Gap 6 Blood Urea Nitrogen 12 Creatinine 0.60 Estimat Glomerular Filtration 96 Rate Random Glucose 190 Calcium Level 6.4 Protein Corrected Calcium 7.6 Total Protein 4.6 Cardiovascular: Regular Lungs: Clear Abdomen: Other (midline incision with moderate amount of SS drainage from inferior portion of wound; CHRIS with SS drainage; G tube to gravity ) Extremities: No edema A/P Assessment and Plan 81 year old female POD4 ex lap; ANDI; G tube placement; Small bowel resection -CCM following---VDRF -TPN -Keep G tube to gravity -Continue to monitor output of CHRIS -Dressing change: Primapore dressing to midline incision; change daily and PRN -Discussed with Kimberli Osorio Jan 20, 2017 15:38
[2017-01-20] MEDS: PANTOPRAZOLE SODIUM 40 MG VIAL IV PUSH SCH (18:47)
[2017-01-20] MEDS: FAT EMULSION 20% INJ 250 ML (Daily over 8 hours) IV-CENTRAL SCH (21:02)
[2017-01-20] MEDS: ACETAMINOPHEN 325 MG TAB PO PRN (21:02)
[2017-01-20] MEDS: CLINIMIX E 4.25/25 2000 mL- >42 mls/hr IV-CENTRAL SCH ×3 (22:10)
[2017-01-21] VITALS (19 sets, daily range): BP systolic 100–136; BP diastolic 38–57; PULSE 12–123; RESP 16–19; TEMP 99.1–101; O2SAT 93–100
[2017-01-21] MEDS: CHLORHEXIDINE GLUCONATE 2 % 1 PACK (2 CLOTHS) TOP SCH (04:00)
[2017-01-21 04:55] LABS: HEMATOCRIT 22.7 % (35.0-46.0); MEAN CELL VOLUME 86.9 FL (80.0-100.0); MEAN CORPUSCULAR HEMOGLOBIN 27.7 PG (27.0-34.0); MEAN CORPUSCULAR HGB CONC 31.8 % (32.0-36.0); PLATELET COUNT 121 TH/MM3 (150-450); RED BLOOD COUNT 2.61 MIL/MM3 (4.00-5.30); RED CELL DISTRIBUTION WIDTH 15.1 % (11.6-17.2); REVIEW FLAG FINAL; WHITE BLOOD COUNT 16.6 TH/MM3 (4.0-11.0)
[2017-01-21] MEDS: fentaNYL DRIP 250 ML IV SCH ×2 (04:59→23:25)
[2017-01-21] MEDS: PROPOFOL 1000 MG/100 ML INJ 100 ML IV SCH (04:59)
[2017-01-21] MEDS: NOREPINEPHRINE-DEXTROSE DRIP 250 ML IV SCH ×2 (04:59→11:47)
[2017-01-21 05:20] LABS: BICARBONATE 28.3 MEQ/L (21.0-32.0); POTASSIUM 3.8 MEQ/L (3.5-5.1)
[2017-01-21] MEDS: INSULIN NovoLIN REGULAR SUPPLEMENTAL SCALE SQ SCH ×4 (06:00→18:00)
[2017-01-21] MEDS: HEPARIN SODIUM - SQ 10,000 UNITS/ML VIAL SQ SCH ×2 (09:14→21:17)
[2017-01-21] MEDS: CHLORHEXIDINE 0.12% (ORAL KIT) 15 ML CUP MT SCH ×2 (09:15→21:20)
--- NOTE | 2017-01-21 11:15 | HHI.CCPN ---
Subjective Remarks/Hospital Course Hospital Course: 81-year-old female presents with abdominal pain that began about 6 hours duration. The patient states that she has a history of multiple bowel obstructions; prior abdominal surgeries also include hysterectomy, oophorectomy , lysis of adhesions, cholecystectomy, appendectomy, fundoplication. CT abdomen reveals hollow viscous perforation with both retro and intraperitoneal air. Noteworthy is dilated common biliary duct at 1.5 cm s/p cholecystectomy. Clearly an acute abdomen requiring resuscitation, correction of coumadin coagulopathy, and operative repair. A stent is in place in the proximal SMA. Subjective: 01/16: intubated, sedated. leukopenic this morning. mildly hypotensive, receiving ivf bolus. lactate cleared. 01/17: remains intubated. remains marginally hypotensive overnight. however, clinically improving. awake, alert, following commands. uop remains adequate. lactate cleared. hgb stable. more hypoglycemic today and sodium rising. 01/18: seen and examined around 07:30am, delayed note entry. extubated yesterday. initially doing well, now this morning more hypoxic requiring 50% venti mask. cxr with evidence of pulmonary edema. s/p large volume pulmonary edema. 01/19: Worsening oxygenation requiring intubation and mechanical ventilation. Gas exchange acceptable on vent. Perfusion and hydration is acceptable. 01/20: Peripheral perfusion much improved after intubation and ventilator. Renal function acceptable. Too weak to attempt extubation today. 01/21: Fingers warm, pin. Toes remain dusky. TPN tolerated. Large A-aO2 gradient persists unfortunately. Objective Vital Signs Date Time Temp Pulse Resp B/P Pulse Ox O2 Delivery O2 Flow Rate FiO2 01/21/17 08:05 94 65 01/21/17 06:00 122 01/21/17 04:00 100.0 16 120/47 01/20/17 19:00 Mechanical Ventilator 01/19/17 08:18 6.00 Intake and Output 01/20/17 01/20/17 01/21/17 08:00 16:00 00:00 Intake Total 1602 ml 1089 ml 2422 ml Output Total 900 ml 1325 ml 1440 ml Balance 702 ml -236 ml 982 ml Result Diagram: 01/21/17 0430 01/21/17 0430 Imaging Last Impressions Abdomen X-Ray 01/16/17 0000 Signed Impressions: Service Date/Time: Monday, January 16, 2017 14:24 - CONCLUSION: No acute abnormality seen. Mitch North MD Abdomen/Pelvis CT 01/15/17 1712 Signed Impressions: Service Date/Time: Sunday, January 15, 2017 18:38 - CONCLUSION: 1. Retroperitoneal air with smaller volume pneumoperitoneum. There is a dilated stomach as well as dilated loops of small bowel throughout the abdomen without obstructing mass or focal transition point. The retroperitoneal air raises concern for perforated gastric or duodenal ulcer. No abscess observed. The dilated bowel could relate to a distal small bowel obstruction or ileus. 2. Colonic diverticulosis without acute inflammation. 3. Intrahepatic and extra hepatic biliary dilatation. The intrahepatic component is slightly more pronounced than the prior study. The gallbladder is surgically absent. Michael Boo Jr., MD Objective Remarks Head: Normal. Neck: Supple Lungs: extubated, bibasilar crackles. Orally intubated today. Heart: tachycardic rate, regular rhythm, sinus by tele. Abdomen: mildly distended, mildly tender g-tube in place to gravity, dark drainage Extremities: Warm, well perfused. Nail beds fingers improved perfusion. Neuro: RASS -1. Moves 4 limbs spontaneously and with purpose. A/P Assessment and Plan Assessment: 81yF POD 5 s/p ex-lap, ANDI, small bowel resection with g-tube placement now extubated. remobilizing fluid and in moderate pulmonary edema. will aggressively diurese. cannot stop free water replacement and dextrose as she remains hypoglycemic and hypernatremic. very complex with multiple medical problems as well as competing medical needs, volume overloaded requiring additional free water replacement and dextrose. Plan by systems: Neurologic: Acute pain secondary to surgical procedure- stable. Tylenol as needed for pain or fever -- prn dilaudid. -- continues to have severe abdominal pain -- Fentanyl gtt while on vent. Respiratory: Acute hypoxic and hypercarbic respiratory failure- was improving, now worsening. Pulmonary Edema -- PRVC vent mode, daily SBTs. --Increase PEEP to 8. Cardiovascular: Hypervolemia Pulmonary edema saline lock ivf --d/c d10w @ 30cc/hr. Wean off now that TPN started. continue cvl for today. Trend CVP -- d/c lasix 40mg iv q8hr --restart lasix Renal: Continue Parisi for close monitoring of urine output given her relative hypotension. -- Strict I/Os FEN/GI: Acute protein calorie malnutritionsevere Perforated hollow viscus Status post expiratory laparotomy, lysis of adhesions, small bowel resection, G- tube placement 01/16 Hypernatremia Free Water Deficit Nothing by mouth G-tube and NG tube to suction/gravity Close monitoring of CHRIS drain GEN surgeon: Rolando --ICU electrolyte protocol -- daily bmp -- d/c d10w -- afternoon bmp. aggressive electrolyte replacement. Heme/ID: Anemia secondary to acute blood loss Intra-abdominal Sepsis Serial hemoglobins Slightly trending down does not meet transfusion triggers at this time. d/c abx, culture for fevers. Endocrine: Hyperglycemia of critical illness -- SSI, every 6, medium scale Prophylaxis: GI Prophylaxis Protonix DVT Prophylaxis -- SCDs restart SQH. Lines: Arterial line 01/16 right IJ cvl 01/16, keep today given electrolyte replacement and cvp trending in pulmonary edema. Parisi, keep this as we are actively monitoring urine output Dispo: Remain in the ICU. Overall impression: Critically ill with impaired pulmonary function requiring re -intubation and mechanical ventilation 01/19. Unable to wean vent today due to excessive % O2 requirements. Ventilator manipulations required all morning. Critical Care 35 mins Shyam La MD Jan 21, 2017 11:15
[2017-01-21] MEDS: ACETAMINOPHEN 325 MG TAB PO PRN (12:22)
--- NOTE | 2017-01-21 15:11 | HHI.PR ---
Subjective Subjective Notes Intubated Eyes open Objective Vitals/I&O Vital Signs Date Time Temp Pulse Resp B/P Pulse Ox O2 Delivery O2 Flow Rate FiO2 01/21/17 13:25 99 65 01/21/17 07:00 Mechanical Ventilator 01/21/17 06:00 122 01/21/17 04:00 100.0 16 120/47 01/19/17 08:18 6.00 Labs Laboratory Tests Test 01/20/17 01/21/17 20:45 04:30 Potassium Level 4.4 3.8 White Blood Count 16.6 Red Blood Count 2.61 Hemoglobin 7.2 Hematocrit 22.7 Mean Corpuscular Volume 86.9 Mean Corpuscular Hemoglobin 27.7 Mean Corpuscular Hemoglobin 31.8 Concent Red Cell Distribution Width 15.1 Platelet Count 121 Mean Platelet Volume 7.9 Sodium Level 142 Chloride Level 108 Carbon Dioxide Level 28.3 Anion Gap 6 Blood Urea Nitrogen 13 Creatinine 0.53 Estimat Glomerular Filtration 111 Rate Random Glucose 182 Calcium Level 7.6 Cardiovascular: Regular Lungs: Clear Abdomen: Other (midline incision with minimal serous drainaing from inferior portion of incicison; stapled; CHRIS with SS drainage ) Extremities: Other (generalized BUE edema ) A/P Assessment and Plan 81 year old female POD5 ex lap; ANDI; G tube placement; Small bowel resection -CCM following---VDRF; possible CPAP trial today -TPN -Keep G tube to gravity -Continue to monitor output of CHRIS -Dressing change: Primapore dressing to midline incision; change daily and PRN -Discussed with MAKAYLA Abdi and Kimberli Calixto Jan 21, 2017 15:11
[2017-01-21] MEDS: PANTOPRAZOLE SODIUM 40 MG VIAL IV PUSH SCH (18:49)
[2017-01-21] MEDS: FAT EMULSION 20% INJ 250 ML (Daily over 8 hours) IV-CENTRAL SCH (21:17)
[2017-01-21] MEDS: CLINIMIX E 4.25/25 2000 mL- >42 mls/hr IV-CENTRAL SCH ×3 (21:17)
[2017-01-21] MEDS: HYDROmorphone HCL PF 1 MG/ML VIAL IV PUSH PRN (22:29)
[2017-01-22] VITALS (19 sets, daily range): BP systolic 94–132; BP diastolic 44–54; PULSE 96–126; RESP 16–20; TEMP 98.9–100.6; O2SAT 92–100
[2017-01-22] MEDS: PROPOFOL 1000 MG/100 ML INJ 100 ML IV SCH (01:19)
[2017-01-22] MEDS: CHLORHEXIDINE GLUCONATE 2 % 1 PACK (2 CLOTHS) TOP SCH (04:00)
--- NOTE | 2017-01-22 04:35 | RADRPT ---
EXAM DATE/TIME: 01/22/2017 03:52 [facility] COMPARISON: CHEST SINGLE AP, January 19, 2017, 10:44. INDICATIONS : Hypoxemia MEDICAL HISTORY : Cardiovascular disease. SURGICAL HISTORY : None. ENCOUNTER: Subsequent ACUITY: 1 week PAIN SCORE: Non-responsive. LOCATION: Bilateral chest FINDINGS: There is worsening diffuse bilateral airspace process in the lungs. ET tube is present with tip overl apping approximately 1 cm above the master. Right IJ line is present with tip overlapping the expecte d region of the SVC. Heart and mediastinum are unremarkable for technique. CONCLUSION: Worsening bilateral air space process since the prior study. Maggi Marte MD on January 22, 2017 at 4:33 Board Certified Radiologist. This report was verified electronically.
[2017-01-22 05:35] LABS: MEAN CORPUSCULAR HEMOGLOBIN 28.4 PG (27.0-34.0); PLATELET COUNT 129 TH/MM3 (150-450); RED BLOOD COUNT 2.31 MIL/MM3 (4.00-5.30); RED CELL DISTRIBUTION WIDTH 14.7 % (11.6-17.2); WHITE BLOOD COUNT 21.3 TH/MM3 (4.0-11.0)
[2017-01-22 05:42] LABS: REVIEW FLAG FINAL
[2017-01-22 05:47] LABS: HEMATOCRIT 19.9 % (35.0-46.0)
[2017-01-22] MEDS: INSULIN NovoLIN REGULAR SUPPLEMENTAL SCALE SQ SCH ×5 (06:00→22:20)
[2017-01-22 06:33] LABS: BICARBONATE 29.3 MEQ/L (21.0-32.0); POTASSIUM 3.5 MEQ/L (3.5-5.1)
[2017-01-22] MEDS: CHLORHEXIDINE 0.12% (ORAL KIT) 15 ML CUP MT SCH ×2 (08:00→19:56)
[2017-01-22] MEDS: HEPARIN SODIUM - SQ 10,000 UNITS/ML VIAL SQ SCH ×2 (09:34→19:55)
[2017-01-22] MEDS ORDERED: POTASSIUM CHLOR 40 MEQ PREMIX 100 ML IV ONE (10:45)
--- NOTE | 2017-01-22 10:48 | HHI.CCPN ---
Subjective Remarks/Hospital Course Hospital Course: 81-year-old female presents with abdominal pain that began about 6 hours duration. The patient states that she has a history of multiple bowel obstructions; prior abdominal surgeries also include hysterectomy, oophorectomy , lysis of adhesions, cholecystectomy, appendectomy, fundoplication. CT abdomen reveals hollow viscous perforation with both retro and intraperitoneal air. Noteworthy is dilated common biliary duct at 1.5 cm s/p cholecystectomy. Clearly an acute abdomen requiring resuscitation, correction of coumadin coagulopathy, and operative repair. A stent is in place in the proximal SMA. Subjective: 01/16: intubated, sedated. leukopenic this morning. mildly hypotensive, receiving ivf bolus. lactate cleared. 01/17: remains intubated. remains marginally hypotensive overnight. however, clinically improving. awake, alert, following commands. uop remains adequate. lactate cleared. hgb stable. more hypoglycemic today and sodium rising. 01/18: seen and examined around 07:30am, delayed note entry. extubated yesterday. initially doing well, now this morning more hypoxic requiring 50% venti mask. cxr with evidence of pulmonary edema. s/p large volume pulmonary edema. 01/19: Worsening oxygenation requiring intubation and mechanical ventilation. Gas exchange acceptable on vent. Perfusion and hydration is acceptable. 01/20: Peripheral perfusion much improved after intubation and ventilator. Renal function acceptable. Too weak to attempt extubation today. 01/21: Fingers warm, pin. Toes remain dusky. TPN tolerated. Large A-aO2 gradient persists unfortunately. 01/22: Diffuse infiltrates persist on CXR. Poor diffusion gradient continues. Objective Vital Signs Date Time Temp Pulse Resp B/P Pulse Ox O2 Delivery O2 Flow Rate FiO2 01/22/17 10:00 113 01/22/17 08:00 99.6 16 97 128/54 01/22/17 08:00 55 01/22/17 07:36 Ventilator 01/19/17 08:18 6.00 Intake and Output 01/21/17 01/21/17 01/22/17 08:00 16:00 00:00 Intake Total 1670 ml 1404 ml 1092 ml Output Total 900 ml 1180 ml 1115 ml Balance 770 ml 224 ml -23 ml Result Diagram: 01/22/17 0525 01/22/17 0525 Imaging Last Impressions Abdomen X-Ray 01/16/17 0000 Signed Impressions: Service Date/Time: Monday, January 16, 2017 14:24 - CONCLUSION: No acute abnormality seen. Mitch North MD Abdomen/Pelvis CT 01/15/17 1712 Signed Impressions: Service Date/Time: Sunday, January 15, 2017 18:38 - CONCLUSION: 1. Retroperitoneal air with smaller volume pneumoperitoneum. There is a dilated stomach as well as dilated loops of small bowel throughout the abdomen without obstructing mass or focal transition point. The retroperitoneal air raises concern for perforated gastric or duodenal ulcer. No abscess observed. The dilated bowel could relate to a distal small bowel obstruction or ileus. 2. Colonic diverticulosis without acute inflammation. 3. Intrahepatic and extra hepatic biliary dilatation. The intrahepatic component is slightly more pronounced than the prior study. The gallbladder is surgically absent. Michael Boo Jr., MD Objective Remarks Head: Normal. Neck: Supple Lungs: Good air movement, bibasilar crackles. Orally intubated today. Heart: tachycardic rate, regular rhythm, sinus by tele. No JVD. Abdomen: mildly distended, mildly tender g-tube in place to gravity, dark drainage Extremities: Warm, well perfused. Nail beds fingers improved perfusion. Beds pink. Neuro: RASS -1. Moves 4 limbs spontaneously and with purpose. Opens eyes. A/P Assessment and Plan Assessment: 81yF POD 5 s/p ex-lap, ANDI, small bowel resection with g-tube placement now extubated. remobilizing fluid and in moderate pulmonary edema. will aggressively diurese again. Plan by systems: Neurologic: Acute pain secondary to surgical procedure- stable. Tylenol as needed for pain or fever -- prn dilaudid. -- continues to have severe abdominal pain -- Reduce Fentanyl gtt while on vent. Respiratory: Acute hypoxic and hypercarbic respiratory failure- was improving, now worsening. Pulmonary Edema -- PRVC vent mode, daily SBTs. -- Increase PEEP to 8. Cardiovascular: Hypervolemia Pulmonary edema saline lock ivf --d/c d10w @ 30cc/hr. Wean off now that TPN started. continue cvl for today. Trend CVP -- d/c lasix 40mg iv q8hr --restart lasix bid 01/22 Renal: Continue Parisi for close monitoring of urine output given her relative hypotension. -- Strict I/Os FEN/GI: Acute protein calorie malnutritionsevere Perforated hollow viscus Status post expiratory laparotomy, lysis of adhesions, small bowel resection, G- tube placement 01/16 Hypernatremia Free Water Deficit Nothing by mouth G-tube and NG tube to suction/gravity Close monitoring of CHRIS drain GEN surgeon: Rolando --ICU electrolyte protocol -- daily bmp -- d/c d10w -- afternoon bmp. aggressive electrolyte replacement. Heme/ID: Anemia secondary to acute blood loss Intra-abdominal Sepsis Serial hemoglobins Slightly trending down does not meet transfusion triggers at this time. d/c abx, culture for fevers. --Culture sputum Endocrine: Hyperglycemia of critical illness -- SSI, every 6, medium scale Prophylaxis: GI Prophylaxis Protonix DVT Prophylaxis -- SCDs restart SQH. Lines: Arterial line 01/16 right IJ cvl 01/16, keep today given electrolyte replacement and cvp trending in pulmonary edema. Parisi, keep this as we are actively monitoring urine output Dispo: Remain in the ICU. Overall impression: Critically ill with impaired pulmonary function requiring re -intubation and mechanical ventilation 01/19. Unable to wean vent today due to excessive % O2 requirements. Ventilator manipulations continue. CXR worse. Critical Care 37 mins Shyam La MD Jan 22, 2017 10:48
[2017-01-22] MEDS: FUROSEMIDE 40 MG/4 ML VIAL IV PUSH SCH ×2 (11:30→17:02)
--- NOTE | 2017-01-22 14:59 | HHI.PR ---
Subjective Subjective Notes Intubated/Sedated Requiring pressor support Objective Vitals/I&O Vital Signs Date Time Temp Pulse Resp B/P Pulse Ox O2 Delivery O2 Flow Rate FiO2 01/22/17 12:00 55 01/22/17 12:00 99.8 108 20 97 94/45 01/22/17 07:36 Ventilator 01/19/17 08:18 6.00 Labs Laboratory Tests Test 01/22/17 01/22/17 05:25 12:21 White Blood Count 21.3 Red Blood Count 2.31 Hemoglobin 6.6 Hematocrit 19.9 Mean Corpuscular Volume 86.0 Mean Corpuscular Hemoglobin 28.4 Mean Corpuscular Hemoglobin 33.0 Concent Red Cell Distribution Width 14.7 Platelet Count 129 Mean Platelet Volume 7.9 Sodium Level 143 Potassium Level 3.5 Chloride Level 107 Carbon Dioxide Level 29.3 Anion Gap 7 Blood Urea Nitrogen 16 Creatinine 0.54 Estimat Glomerular Filtration 109 Rate Random Glucose 142 Calcium Level 7.9 Blood Type A POSITIVE Antibody Screen NEGATIVE Crossmatch Leukocyte-Reduced Red Blood Cells Blood Bank Comment Date/Time Procedure Status Source Growth 01/22/17 12:21 Gram Stain Received Sputum Endotracheal Pending 01/22/17 12:21 Sputum Culture Received Sputum Endotracheal Pending Cardiovascular: Regular Lungs: Clear Abdomen: Other (midline incision with dali--- moderate amount of SS drainage from inferior portion of wound; CHRIS with SS drainage; abd soft ) Extremities: Other (Generalized BUE edema ) Narrative Exam G tube to gravity A/P Assessment and Plan 81 year old female POD6 ex lap; ANDI; G tube placement; Small bowel resection -CCM following---VDRF -TPN -Keep G tube to gravity -Continue to monitor output of CHRIS -Hmg 6.6 today---transfused PRBCs -Dressing change: Primapore dressing to midline incision; change daily and PRN Kimberli Jarrett Jan 22, 2017 14:59
[2017-01-22] MEDS: PANTOPRAZOLE SODIUM 40 MG VIAL IV PUSH SCH (17:02)
[2017-01-22] MEDS: NOREPINEPHRINE-DEXTROSE DRIP 250 ML IV SCH ×2 (19:55→22:19)
[2017-01-22] MEDS: FAT EMULSION 20% INJ 250 ML (Daily over 8 hours) IV-CENTRAL SCH (19:55)
[2017-01-22] MEDS: CLINIMIX E 4.25/25 2000 mL- >42 mls/hr IV-CENTRAL SCH ×3 (19:56)
[2017-01-22] MEDS: fentaNYL DRIP 250 ML IV SCH (21:37)
[2017-01-23] VITALS (19 sets, daily range): BP systolic 100–121; BP diastolic 46–56; PULSE 91–122; RESP 15–18; TEMP 99.4–100.5; O2SAT 97–100
[2017-01-23] MEDS: PROPOFOL 1000 MG/100 ML INJ 100 ML IV SCH ×2 (01:07→11:54)
[2017-01-23] MEDS: CHLORHEXIDINE GLUCONATE 2 % 1 PACK (2 CLOTHS) TOP SCH ×2 (04:00→20:33)
--- NOTE | 2017-01-23 05:57 | RADRPT ---
EXAM DATE/TIME: 01/23/2017 04:14 [facility] COMPARISON: CHEST SINGLE AP, January 22, 2017, 3:52. INDICATIONS : Pneumonia. Hypoxemia. MEDICAL HISTORY : Cardiovascular disease. SURGICAL HISTORY : Cholecystectomy. Appendectomy. Bowel surgery ENCOUNTER: Subsequent ACUITY: 2 weeks PAIN SCORE: 0/10 LOCATION: Bilateral chest FINDINGS: A single view of the chest demonstrates a the endotracheal tube and right IJ central line are both in good position. There is diffuse airspace and interstitial prominence throughout the lungs. Small sima ateral pleural effusions. No visible pneumothorax. Stable bilateral biapical pleural-parenchymal thic kening The cardiomediastinal contours are unremarkable. Osseous structures are intact. CONCLUSION: Diffuse interstitial and airspace disease throughout the lungs. ET tube in good position. Julien Jolley MD on January 23, 2017 at 5:55 Board Certified Radiologist. This report was verified electronically.
[2017-01-23] MEDS: INSULIN NovoLIN REGULAR SUPPLEMENTAL SCALE SQ SCH ×3 (06:00→18:00)
[2017-01-23 06:02] LABS: HEMATOCRIT 28.6 % (35.0-46.0); MEAN CELL VOLUME 85.1 FL (80.0-100.0); MEAN CORPUSCULAR HEMOGLOBIN 27.7 PG (27.0-34.0); MEAN CORPUSCULAR HGB CONC 32.5 % (32.0-36.0); PLATELET COUNT 140 TH/MM3 (150-450); RED BLOOD COUNT 3.36 MIL/MM3 (4.00-5.30); RED CELL DISTRIBUTION WIDTH 14.8 % (11.6-17.2); REVIEW FLAG FINAL; WHITE BLOOD COUNT 23.1 TH/MM3 (4.0-11.0)
[2017-01-23 06:29] LABS: BICARBONATE 36.1 MEQ/L (21.0-32.0)
[2017-01-23 06:32] LABS: POTASSIUM 2.9 MEQ/L (3.5-5.1)
[2017-01-23] MEDS: POTASSIUM CHLOR 40 MEQ PREMIX 100 ML IV PRN ×2 (06:35→06:39)
[2017-01-23] MEDS: CHLORHEXIDINE 0.12% (ORAL KIT) 15 ML CUP MT SCH ×2 (08:00→20:00)
[2017-01-23] MEDS: HEPARIN SODIUM - SQ 10,000 UNITS/ML VIAL SQ SCH ×2 (08:42→22:24)
[2017-01-23] MEDS: FUROSEMIDE 40 MG/4 ML VIAL IV PUSH SCH ×2 (08:42→18:03)
[2017-01-23] MEDS: fentaNYL DRIP 250 ML IV SCH ×2 (08:59→16:44)
[2017-01-23] MEDS: ACETAMINOPHEN 1000 MG/100 ML VIAL IV PRN (09:00)
[2017-01-23] MEDS: NOREPINEPHRINE-DEXTROSE DRIP 250 ML IV SCH ×2 (09:00→16:44)
--- NOTE | 2017-01-23 09:11 | HHI.CCPN ---
Subjective Remarks/Hospital Course Hospital Course: 81-year-old female presents with abdominal pain that began about 6 hours duration. The patient states that she has a history of multiple bowel obstructions; prior abdominal surgeries also include hysterectomy, oophorectomy , lysis of adhesions, cholecystectomy, appendectomy, fundoplication. CT abdomen reveals hollow viscous perforation with both retro and intraperitoneal air. Noteworthy is dilated common biliary duct at 1.5 cm s/p cholecystectomy. Clearly an acute abdomen requiring resuscitation, correction of coumadin coagulopathy, and operative repair. A stent is in place in the proximal SMA. Subjective: 01/16: intubated, sedated. leukopenic this morning. mildly hypotensive, receiving ivf bolus. lactate cleared. 01/17: remains intubated. remains marginally hypotensive overnight. however, clinically improving. awake, alert, following commands. uop remains adequate. lactate cleared. hgb stable. more hypoglycemic today and sodium rising. 01/18: seen and examined around 07:30am, delayed note entry. extubated yesterday. initially doing well, now this morning more hypoxic requiring 50% venti mask. cxr with evidence of pulmonary edema. s/p large volume pulmonary edema. 01/19: Worsening oxygenation requiring intubation and mechanical ventilation. Gas exchange acceptable on vent. Perfusion and hydration is acceptable. 01/20: Peripheral perfusion much improved after intubation and ventilator. Renal function acceptable. Too weak to attempt extubation today. 01/21: Fingers warm, pin. Toes remain dusky. TPN tolerated. Large A-aO2 gradient persists unfortunately. 01/22: Diffuse infiltrates persist on CXR. Poor diffusion gradient continues. 01/23: CXR with persistent interstitial edema, but improving. G-tube draining normally, no BM yet. Continue diuresis. Finally looks OK on SBTs. Objective Vital Signs Date Time Temp Pulse Resp B/P Pulse Ox O2 Delivery O2 Flow Rate FiO2 01/23/17 08:10 98 40 01/23/17 07:00 Mechanical Ventilator 01/23/17 06:00 98 01/23/17 04:00 100.2 16 112/47 01/19/17 08:18 6.00 Intake and Output 01/22/17 01/22/17 01/23/17 08:00 16:00 00:00 Intake Total 1277 ml 1348 ml 1429 ml Output Total 400 ml 2080 ml 3332 ml Balance 877 ml -732 ml -1903 ml Result Diagram: 01/23/17 0545 01/23/17 0545 Imaging Last Impressions Abdomen X-Ray 01/16/17 0000 Signed Impressions: Service Date/Time: Monday, January 16, 2017 14:24 - CONCLUSION: No acute abnormality seen. Mitch North MD Abdomen/Pelvis CT 01/15/17 1712 Signed Impressions: Service Date/Time: Sunday, January 15, 2017 18:38 - CONCLUSION: 1. Retroperitoneal air with smaller volume pneumoperitoneum. There is a dilated stomach as well as dilated loops of small bowel throughout the abdomen without obstructing mass or focal transition point. The retroperitoneal air raises concern for perforated gastric or duodenal ulcer. No abscess observed. The dilated bowel could relate to a distal small bowel obstruction or ileus. 2. Colonic diverticulosis without acute inflammation. 3. Intrahepatic and extra hepatic biliary dilatation. The intrahepatic component is slightly more pronounced than the prior study. The gallbladder is surgically absent. Michael Boo Jr., MD Objective Remarks Head: Normal. Neck: Supple Lungs: Good air movement, few bibasilar crackles. Orally intubated today. Heart: NL S1S2, regular rhythm, sinus by tele. No JVD. Abdomen: mildly distended, mildly tender g-tube in place to gravity, dark drainage Extremities: Warm, well perfused. Nail beds, fingers improved perfusion. Beds pink still. Neuro: RASS -1. Moves 4 limbs spontaneously and with purpose. Opens eyes. Nods head to questions. A/P Assessment and Plan Assessment: 81yF POD 5 s/p ex-lap, ANDI, small bowel resection with g-tube placement now extubated. remobilizing fluid and in moderate pulmonary edema. will aggressively diurese again. Plan by systems: Neurologic: Acute pain secondary to surgical procedure- stable. Tylenol as needed for pain or fever -- prn dilaudid. -- continues to have severe abdominal pain -- Reduce Fentanyl gtt while on vent. Respiratory: Acute hypoxic and hypercarbic respiratory failure- was improving, now worsening. Pulmonary Edema -- PRVC vent mode, daily SBTs. -- Keep PEEP to 8. Cardiovascular: Hypervolemia Pulmonary edema saline lock ivf --d/c d10w @ 30cc/hr. Wean off now that TPN started. continue cvl for today. Trend CVP -- d/c lasix 40mg iv q8hr --restart lasix bid 01/22 Renal: Continue Parisi for close monitoring of urine output given her relative hypotension. -- Strict I/Os FEN/GI: Acute protein calorie malnutritionsevere Perforated hollow viscus Status post expiratory laparotomy, lysis of adhesions, small bowel resection, G- tube placement 01/16 Hypernatremia Free Water Deficit Nothing by mouth G-tube and NG tube to suction/gravity Close monitoring of CHRIS drain GEN surgeon: Rolando --ICU electrolyte protocol -- daily bmp -- d/c d10w -- afternoon bmp. aggressive electrolyte replacement. Heme/ID: Anemia secondary to acute blood loss Intra-abdominal Sepsis Serial hemoglobins Slightly trending down does not meet transfusion triggers at this time. d/c abx, culture for fevers. --Culture sputum Endocrine: Hyperglycemia of critical illness -- SSI, every 6, medium scale Prophylaxis: GI Prophylaxis Protonix DVT Prophylaxis -- SCDs restart SQH. Lines: Arterial line 01/16 right IJ cvl 01/16, keep today given electrolyte replacement and cvp trending in pulmonary edema. Parisi, keep this as we are actively monitoring urine output Dispo: Remain in the ICU. Overall impression: Critically ill with impaired pulmonary function requiring re -intubation and mechanical ventilation 01/19. Unable to wean vent today but O2 requirements less. Ventilator manipulations continue, leave PEEP elevated. CXR slightly better. May need trach - hoping for trial extubation after 2-3 days. Critical care 44 mins Shyam La MD Jan 23, 2017 09:11
--- NOTE | 2017-01-23 10:43 | HHI.PR ---
Subjective Subjective Notes intubated Objective Vitals/I&O Vital Signs Date Time Temp Pulse Resp B/P Pulse Ox O2 Delivery O2 Flow Rate FiO2 01/23/17 10:00 97 01/23/17 08:10 98 40 01/23/17 08:00 100.5 16 105/56 100/52 01/23/17 07:00 Mechanical Ventilator 01/19/17 08:18 6.00 Labs Laboratory Tests Test 01/22/17 01/23/17 12:21 05:45 Blood Type A POSITIVE Antibody Screen NEGATIVE Crossmatch Leukocyte-Reduced Red Blood Cells Blood Bank Comment White Blood Count 23.1 Red Blood Count 3.36 Hemoglobin 9.3 Hematocrit 28.6 Mean Corpuscular Volume 85.1 Mean Corpuscular Hemoglobin 27.7 Mean Corpuscular Hemoglobin 32.5 Concent Red Cell Distribution Width 14.8 Platelet Count 140 Mean Platelet Volume 7.7 Sodium Level 138 Potassium Level 2.9 Chloride Level 97 Carbon Dioxide Level 36.1 Anion Gap 5 Blood Urea Nitrogen 19 Creatinine 0.48 Estimat Glomerular Filtration 125 Rate Random Glucose 150 Calcium Level 8.3 Date/Time Procedure Status Source Growth 01/22/17 12:21 Gram Stain - Final Resulted Sputum Endotracheal 01/22/17 12:21 Sputum Culture Resulted Sputum Endotracheal Pending Abdomen: Non-distended, Non-tender A/P Assessment and Plan 81yo female s/p exlap, ANDI, g-tube, small bowel resection, stable. - DCJP drain - appreciate network consultant help Srinivasan Brown MD Jan 23, 2017 10:43
[2017-01-23] MEDS: PANTOPRAZOLE SODIUM 40 MG VIAL IV PUSH SCH (18:03)
[2017-01-23] MEDS: FAT EMULSION 20% INJ 250 ML (Daily over 8 hours) IV-CENTRAL SCH (22:24)
[2017-01-23] MEDS: CLINIMIX E 4.25/25 2000 mL- >42 mls/hr IV-CENTRAL SCH ×3 (22:24)
[2017-01-24] VITALS (19 sets, daily range): BP systolic 96–120; BP diastolic 51–62; PULSE 96–122; RESP 16–22; TEMP 99.5–102.3; O2SAT 94–100
[2017-01-24] MEDS: INSULIN NovoLIN REGULAR SUPPLEMENTAL SCALE SQ SCH ×5 (00:25→23:43)
[2017-01-24] MEDS: ACETAMINOPHEN 1000 MG/100 ML VIAL IV PRN ×3 (00:44→23:20)
[2017-01-24] MEDS: NOREPINEPHRINE-DEXTROSE DRIP 250 ML IV SCH ×3 (01:17→17:46)
[2017-01-24] MEDS: HYDROmorphone HCL PF 1 MG/ML VIAL IV PUSH PRN (01:33)
[2017-01-24] MEDS: CHLORHEXIDINE 0.12% (ORAL KIT) 15 ML CUP MT SCH ×2 (08:00→20:11)
--- NOTE | 2017-01-24 09:11 | HHI.CCPN ---
Subjective Remarks/Hospital Course Hospital Course: 81-year-old female presents with abdominal pain that began about 6 hours duration. The patient states that she has a history of multiple bowel obstructions; prior abdominal surgeries also include hysterectomy, oophorectomy , lysis of adhesions, cholecystectomy, appendectomy, fundoplication. CT abdomen reveals hollow viscous perforation with both retro and intraperitoneal air. Noteworthy is dilated common biliary duct at 1.5 cm s/p cholecystectomy. Clearly an acute abdomen requiring resuscitation, correction of coumadin coagulopathy, and operative repair. A stent is in place in the proximal SMA. Subjective: 01/16: intubated, sedated. leukopenic this morning. mildly hypotensive, receiving ivf bolus. lactate cleared. 01/17: remains intubated. remains marginally hypotensive overnight. however, clinically improving. awake, alert, following commands. uop remains adequate. lactate cleared. hgb stable. more hypoglycemic today and sodium rising. 01/18: seen and examined around 07:30am, delayed note entry. extubated yesterday. initially doing well, now this morning more hypoxic requiring 50% venti mask. cxr with evidence of pulmonary edema. s/p large volume pulmonary edema. 01/19: Worsening oxygenation requiring intubation and mechanical ventilation. Gas exchange acceptable on vent. Perfusion and hydration is acceptable. 01/20: Peripheral perfusion much improved after intubation and ventilator. Renal function acceptable. Too weak to attempt extubation today. 01/21: Fingers warm, pin. Toes remain dusky. TPN tolerated. Large A-aO2 gradient persists unfortunately. 01/22: Diffuse infiltrates persist on CXR. Poor diffusion gradient continues. 01/23: CXR with persistent interstitial edema, but improving. G-tube draining normally, no BM yet. Continue diuresis. Finally looks OK on SBTs. 01/24: Improved gas exchange. Will try to extubate. Objective Vital Signs Date Time Temp Pulse Resp B/P Pulse Ox O2 Delivery O2 Flow Rate FiO2 01/24/17 08:29 40 01/24/17 08:11 100 01/24/17 06:00 103 01/24/17 04:00 99.6 17 110/62 01/23/17 07:00 Mechanical Ventilator Intake and Output 01/23/17 01/23/17 01/24/17 08:00 16:00 00:00 Intake Total 1688 ml 2107 ml 1250 ml Output Total 1525 ml 3865 ml 2500 ml Balance 163 ml -1758 ml -1250 ml Result Diagram: 01/23/17 0545 01/23/17 1630 Imaging Last Impressions Abdomen X-Ray 01/16/17 0000 Signed Impressions: Service Date/Time: Monday, January 16, 2017 14:24 - CONCLUSION: No acute abnormality seen. Mitch North MD Abdomen/Pelvis CT 01/15/17 1712 Signed Impressions: Service Date/Time: Sunday, January 15, 2017 18:38 - CONCLUSION: 1. Retroperitoneal air with smaller volume pneumoperitoneum. There is a dilated stomach as well as dilated loops of small bowel throughout the abdomen without obstructing mass or focal transition point. The retroperitoneal air raises concern for perforated gastric or duodenal ulcer. No abscess observed. The dilated bowel could relate to a distal small bowel obstruction or ileus. 2. Colonic diverticulosis without acute inflammation. 3. Intrahepatic and extra hepatic biliary dilatation. The intrahepatic component is slightly more pronounced than the prior study. The gallbladder is surgically absent. Michael Boo Jr., MD Objective Remarks Head: Normal. Neck: Supple Lungs: Good air movement, few bibasilar crackles. Orally intubated today. Heart: NL S1S2, regular rhythm, sinus by tele. No JVD. Abdomen: mildly distended, mildly tender g-tube in place to gravity, dark drainage Extremities: Warm, well perfused. Nail beds, fingers improved perfusion. Beds pink still. Neuro: RASS -1. Moves 4 limbs spontaneously and with purpose. Opens eyes. Nods head to questions. A/P Assessment and Plan Assessment: 81yF POD 5 s/p ex-lap, ANDI, small bowel resection with g-tube placement now extubated. remobilizing fluid and in moderate pulmonary edema. will aggressively diurese again. Plan by systems: Neurologic: Acute pain secondary to surgical procedure- stable. Tylenol as needed for pain or fever -- prn dilaudid. -- continues to have severe abdominal pain -- Reduce Fentanyl gtt while on vent. Respiratory: Acute hypoxic and hypercarbic respiratory failure- was improving, now worsening. Pulmonary Edema -- PRVC vent mode, daily SBTs. -- Keep PEEP to 8. Cardiovascular: Hypervolemia Pulmonary edema saline lock ivf --d/c d10w @ 30cc/hr. Wean off now that TPN started. continue cvl for today. Trend CVP -- d/c lasix 40mg iv q8hr --restart lasix bid 01/22 Renal: Continue Parisi for close monitoring of urine output given her relative hypotension. -- Strict I/Os FEN/GI: Acute protein calorie malnutritionsevere Perforated hollow viscus Status post expiratory laparotomy, lysis of adhesions, small bowel resection, G- tube placement 01/16 Hypernatremia Free Water Deficit Nothing by mouth G-tube and NG tube to suction/gravity Close monitoring of CHRIS drain GEN surgeon: Rolando --ICU electrolyte protocol -- daily bmp -- d/c d10w -- afternoon bmp. aggressive electrolyte replacement. Heme/ID: Anemia secondary to acute blood loss Intra-abdominal Sepsis Serial hemoglobins Slightly trending down does not meet transfusion triggers at this time. d/c abx, culture for fevers. --Culture sputum Endocrine: Hyperglycemia of critical illness -- SSI, every 6, medium scale Prophylaxis: GI Prophylaxis Protonix DVT Prophylaxis -- SCDs restart SQH. Lines: Arterial line 01/16 right IJ cvl 01/16, keep today given electrolyte replacement and cvp trending in pulmonary edema. Parisi, keep this as we are actively monitoring urine output Dispo: Remain in the ICU. Overall impression: Critically ill with impaired pulmonary function requiring re -intubation and mechanical ventilation 01/19. Unable to wean vent today but O2 requirements less. Ventilator manipulations continue, leave PEEP elevated. CXR slightly better. May need trach - hoping for trial extubation. today Shyam La MD Jan 24, 2017 09:11
[2017-01-24] MEDS: FUROSEMIDE 40 MG/4 ML VIAL IV PUSH SCH ×2 (10:23→17:46)
[2017-01-24] MEDS: HEPARIN SODIUM - SQ 10,000 UNITS/ML VIAL SQ SCH ×2 (10:23→20:11)
[2017-01-24] MEDS: fentaNYL DRIP 250 ML IV SCH ×3 (10:24→20:36)
--- NOTE | 2017-01-24 11:31 | HHI.PR ---
Subjective Subjective Notes intubated, abdominal tenderness, g tube to gravity, fever overnight Objective Vitals/I&O Vital Signs Date Time Temp Pulse Resp B/P Pulse Ox O2 Delivery O2 Flow Rate FiO2 01/24/17 11:23 98 40 01/24/17 10:00 105 01/24/17 08:00 101.5 20 120/51 01/24/17 07:00 Mechanical Ventilator Labs Laboratory Tests Test 01/23/17 16:30 Potassium Level 3.9 Date/Time Procedure Status Source Growth 01/22/17 12:21 Gram Stain - Final Resulted Sputum Endotracheal 01/22/17 12:21 Sputum Culture - Preliminary Resulted Sputum Endotracheal HEAVY GROWTH NORMAL RESPIRATORY JAKI... Cardiovascular: Regular Lungs: Upper airway course sound Abdomen: Other (soft incision c/d/i, gtube c/d/i, ) A/P Assessment and Plan 81yo female s/p exlap, ANDI, g-tube, small bowel resection, stable. -extubate per ISC - Fever w/u, leukocytosis, may need re CTscan if continued fevers - abx - appreciate laborer landscape recs - am labs pending Alberto Navarro MD Jan 24, 2017 11:31
--- NOTE | 2017-01-24 14:20 | PD.PROCEDR ---
Procedure Note Procedure DX: Malnutrition OP: Insertion Left Subclavian Central Venous Line (01487) Procedure: Left chest prepped and draped. Left subclavian vein cannulated and wire easily advanced. Catheter passed over wire to 17 cm. Lumens aspirated and flushed. Dressing applied. CXR ordered, will review. Shyam La MD Jan 24, 2017 14:20
--- NOTE | 2017-01-24 15:21 | RADRPT ---
EXAM DATE/TIME: 01/24/2017 14:14 [facility] COMPARISON: CHEST SINGLE AP, January 23, 2017, 4:14. INDICATIONS : Evaluate central line placement MEDICAL HISTORY : Cardiovascular disease. SURGICAL HISTORY : Cholecystectomy. Appendectomy. ENCOUNTER: Subsequent ACUITY: 2 weeks PAIN SCORE: Non-responsive. LOCATION: Bilateral chest FINDINGS: Right central line tip is in the right atrium. A left central line tip is also in the right atrium. E ndotracheal tube is in position. Bilateral airspace disease improved from January 23. Small effusions. CONCLUSION: 1. Both right and left central line tips are in the right atrium near the cavoatrial junction. Endotr acheal tube in satisfactory position. Boogie Chopra MD on January 24, 2017 at 15:18 Board Certified Radiologist. This report was verified electronically.
[2017-01-24] MEDS ORDERED: DEXTROSE 10% INJ 1,000 ML IV SCH (16:00)
[2017-01-24] MEDS: PROPOFOL 1000 MG/100 ML INJ 100 ML IV SCH ×2 (17:46→20:36)
[2017-01-24] MEDS: PANTOPRAZOLE SODIUM 40 MG VIAL IV PUSH SCH (17:47)
[2017-01-24] MEDS: CLINIMIX E 4.25/25 2000 mL- >42 mls/hr IV-CENTRAL SCH ×3 (20:09)
[2017-01-24] MEDS: FAT EMULSION 20% INJ 250 ML (Daily over 8 hours) IV-CENTRAL SCH (20:09)
[2017-01-25] VITALS (21 sets, daily range): BP systolic 88–146; BP diastolic 49–62; PULSE 89–146; RESP 16–30; TEMP 98.7–101.4; O2SAT 98–100
[2017-01-25] MEDS: NOREPINEPHRINE-DEXTROSE DRIP 250 ML IV SCH ×4 (00:16→21:40)
[2017-01-25] MEDS: CHLORHEXIDINE GLUCONATE 2 % 1 PACK (2 CLOTHS) TOP SCH ×2 (04:00→22:49)
[2017-01-25] MEDS: INSULIN NovoLIN REGULAR SUPPLEMENTAL SCALE SQ SCH ×3 (06:00→17:36)
[2017-01-25] MEDS: HEPARIN SODIUM - SQ 10,000 UNITS/ML VIAL SQ SCH (08:06)
[2017-01-25] MEDS: CHLORHEXIDINE 0.12% (ORAL KIT) 15 ML CUP MT SCH ×2 (08:06→20:27)
[2017-01-25] MEDS: FUROSEMIDE 40 MG/4 ML VIAL IV PUSH SCH ×2 (08:07→17:33)
[2017-01-25] MEDS: fentaNYL DRIP 250 ML IV SCH (08:44)
--- NOTE | 2017-01-25 10:23 | HHI.PR ---
Subjective Subjective Notes SUSANA intubated Objective Vitals/I&O Vital Signs Date Time Temp Pulse Resp B/P Pulse Ox O2 Delivery O2 Flow Rate FiO2 01/25/17 10:00 100 01/25/17 08:00 99.1 16 111/55 99 01/25/17 08:00 40 01/24/17 20:00 Mechanical Ventilator Labs Date/Time Procedure Status Source Growth 01/22/17 12:21 Gram Stain - Final Complete Sputum Endotracheal 01/22/17 12:21 Sputum Culture - Final Complete Sputum Endotracheal HEAVY GROWTH NORMAL RESPIRATORY JAKI Abdomen: Non-distended, Non-tender A/P Assessment and Plan 81yo female s/p exlap, ANDI, g-tube, small bowel resection, stable. - appreciate electric truck operator help - abdomen exam benign, wound c/d/i - may need trach this week Srinivasan Brown MD Jan 25, 2017 10:23
--- NOTE | 2017-01-25 12:02 | HHI.CCPN ---
Subjective Remarks/Hospital Course Hospital Course: 81-year-old female presents with abdominal pain that began about 6 hours duration. The patient states that she has a history of multiple bowel obstructions; prior abdominal surgeries also include hysterectomy, oophorectomy , lysis of adhesions, cholecystectomy, appendectomy, fundoplication. CT abdomen reveals hollow viscous perforation with both retro and intraperitoneal air. Noteworthy is dilated common biliary duct at 1.5 cm s/p cholecystectomy. Clearly an acute abdomen requiring resuscitation, correction of coumadin coagulopathy, and operative repair. A stent is in place in the proximal SMA. Subjective: 01/16: intubated, sedated. leukopenic this morning. mildly hypotensive, receiving ivf bolus. lactate cleared. 01/17: remains intubated. remains marginally hypotensive overnight. however, clinically improving. awake, alert, following commands. uop remains adequate. lactate cleared. hgb stable. more hypoglycemic today and sodium rising. 01/18: seen and examined around 07:30am, delayed note entry. extubated yesterday. initially doing well, now this morning more hypoxic requiring 50% venti mask. cxr with evidence of pulmonary edema. s/p large volume pulmonary edema. 01/19: Worsening oxygenation requiring intubation and mechanical ventilation. Gas exchange acceptable on vent. Perfusion and hydration is acceptable. 01/20: Peripheral perfusion much improved after intubation and ventilator. Renal function acceptable. Too weak to attempt extubation today. 01/21: Fingers warm, pin. Toes remain dusky. TPN tolerated. Large A-aO2 gradient persists unfortunately. 01/22: Diffuse infiltrates persist on CXR. Poor diffusion gradient continues. 01/23: CXR with persistent interstitial edema, but improving. G-tube draining normally, no BM yet. Continue diuresis. Finally looks OK on SBTs. 01/24: Improved gas exchange. Will try to extubate. 01/25: Acceptable oxygenation on FiO2 35%. Satisfactory SBT. Will extubate -> failed due to upper airway obstruction/stridor. This is second time for same reason, will need tracheostomy. Objective Vital Signs Date Time Temp Pulse Resp B/P Pulse Ox O2 Delivery O2 Flow Rate FiO2 01/25/17 11:05 99 40 01/25/17 10:00 100 01/25/17 08:00 99.1 16 111/55 01/24/17 20:00 Mechanical Ventilator Intake and Output 01/24/17 01/24/17 01/25/17 08:00 16:00 00:00 Intake Total 1300 ml 814 ml 786 ml Output Total 1120 ml 2400 ml 1550 ml Balance 180 ml -1586 ml -764 ml Result Diagram: 01/23/17 0545 01/23/17 1630 Other Results Microbiology Date/Time Procedure Status Source Growth 01/22/17 12:21 Gram Stain - Final Complete Sputum Endotracheal 01/22/17 12:21 Sputum Culture - Final Complete Sputum Endotracheal HEAVY GROWTH NORMAL RESPIRATORY JAKI Imaging Last Impressions Abdomen X-Ray 01/16/17 0000 Signed Impressions: Service Date/Time: Monday, January 16, 2017 14:24 - CONCLUSION: No acute abnormality seen. Mitch North MD Abdomen/Pelvis CT 01/15/17 1712 Signed Impressions: Service Date/Time: Sunday, January 15, 2017 18:38 - CONCLUSION: 1. Retroperitoneal air with smaller volume pneumoperitoneum. There is a dilated stomach as well as dilated loops of small bowel throughout the abdomen without obstructing mass or focal transition point. The retroperitoneal air raises concern for perforated gastric or duodenal ulcer. No abscess observed. The dilated bowel could relate to a distal small bowel obstruction or ileus. 2. Colonic diverticulosis without acute inflammation. 3. Intrahepatic and extra hepatic biliary dilatation. The intrahepatic component is slightly more pronounced than the prior study. The gallbladder is surgically absent. Michael Boo Jr., MD Objective Remarks Head: Normal. Neck: Supple Lungs: Good air movement, few bibasilar crackles. Orally intubated today. Heart: NL S1S2, regular rhythm, sinus by tele. No JVD. Abdomen: mildly distended, mildly tender g-tube in place to gravity, light drainage Extremities: Warm, well perfused. Nail beds, fingers improved perfusion. Neuro: RASS +1. Moves 4 limbs spontaneously and with purpose. Opens eyes. Nods head to questions. A/P Assessment and Plan Assessment: 81yF POD 5 s/p ex-lap, ANDI, small bowel resection with g-tube placement now extubated. remobilizing fluid and in moderate pulmonary edema. will aggressively diurese again. Plan by systems: Neurologic: Acute pain secondary to surgical procedure- stable. Tylenol as needed for pain or fever -- prn dilaudid. -- continues to have severe abdominal pain -- d/c Fentanyl gtt while on vent. Respiratory: Acute hypoxic and hypercarbic respiratory failure- was improving, now worsening. Pulmonary Edema -- PRVC vent mode, daily SBTs. -- Keep PEEP to 5 --Extubate Cardiovascular: Hypervolemia Pulmonary edema saline lock ivf --d/c d10w @ 30cc/hr. Wean off now that TPN started. continue cvl for today. Trend CVP -- d/c lasix 40mg iv q8hr --restart lasix bid 01/22 -- Restart plavix when PO. Renal: Continue Parisi for close monitoring of urine output given her relative hypotension. -- Strict I/Os FEN/GI: Acute protein calorie malnutritionsevere Perforated hollow viscus Status post expiratory laparotomy, lysis of adhesions, small bowel resection, G- tube placement 01/16 Hypernatremia Free Water Deficit Nothing by mouth G-tube and NG tube to suction/gravity Close monitoring of CHRIS drain GEN surgeon: Rolando --ICU electrolyte protocol -- daily bmp -- d/c d10w -- daily bmp. aggressive electrolyte replacement. Heme/ID: Anemia secondary to acute blood loss Intra-abdominal Sepsis Serial hemoglobins Slightly trending down does not meet transfusion triggers at this time. d/c abx, culture for fevers. --Culture sputum Endocrine: Hyperglycemia of critical illness -- SSI, every 6, medium scale Prophylaxis: GI Prophylaxis Protonix DVT Prophylaxis -- SCDs restart lovenox. Lines: Arterial line 01/16 new left SCV CVL 01/24, keep today given electrolyte replacement and cvp trending in pulmonary edema. Parisi, keep this as we are actively monitoring urine output Dispo: Remain in the ICU. Overall impression: Trial extubation now. Plavix for stent when taking PO again. Daily lovenox, hold coumadin (hx of dvt) Shyam La MD Jan 25, 2017 12:02
[2017-01-25] MEDS ORDERED: RESP: RACEPINEPHRINE 2.25% 0.5 ML NEB NEB PRN (12:15)
[2017-01-25] MEDS ORDERED: MIDAZOLAM HCL 5 MG/ML VIAL (1 ML) ONE (12:23)
[2017-01-25] MEDS ORDERED: ROCURONIUM INJ 50 MG/5 ML VIAL ONE (12:24)
[2017-01-25] MEDS ORDERED: METOPROLOL TARTRATE 5 MG/5 ML VIAL IV PUSH ONE (13:00)
--- NOTE | 2017-01-25 13:00 | PD.PROCEDR ---
Procedure Note Procedure DX: Respiratory Failure (J96.00) OP: Orotracheal intubation (94855) Procedure: Bag mask ventilation after poor response to racemic epinephrine. Versed 5 mg and rocuronium 50 mg. Intubated orally with 7.0 tube. Position confirmed with CO2 detection, breath sounds, sats 100%. CXR ordered. Cords found to be edematous. Shyam La MD Jan 25, 2017 13:00
--- NOTE | 2017-01-25 13:24 | RADRPT ---
EXAM DATE/TIME: 01/25/2017 12:46 [facility] COMPARISON: CHEST SINGLE AP, January 24, 2017, 14:14. INDICATIONS : ET tube placement. Respiratory failure. MEDICAL HISTORY : Cardiovascular disease. SURGICAL HISTORY : Cholecystectomy. Appendectomy. ENCOUNTER: Subsequent ACUITY: 2 weeks PAIN SCORE: Non-responsive. LOCATION: Bilateral chest FINDINGS: ET is in the right main bronchus. There is good opacification of the left hemithorax. Port in good position. CONCLUSION: ET right main bronchus.. Michael Concepcion MD FACR on January 25, 2017 at 13:19 Board Certified Radiologist. This report was verified electronically.
--- NOTE | 2017-01-25 13:26 | RADRPT ---
EXAM DATE/TIME: 01/25/2017 12:55 [facility] COMPARISON: CHEST SINGLE AP, January 25, 2017, 12:46. INDICATIONS : Chest tube placement adjustment. MEDICAL HISTORY : Cardiovascular disease. SURGICAL HISTORY : Cholecystectomy. Appendectomy. ENCOUNTER: Subsequent ACUITY: 2 weeks PAIN SCORE: Non-responsive. LOCATION: Bilateral chest FINDINGS: ET is at the right main bronchus better aeration of the left lung. Heart is minimally enlarged. Inf use-a-Port remains in good position. CONCLUSION: Better aeration the left lung. ET tube could be pulled back 4 cm. Michael Concepcion MD FACR on January 25, 2017 at 13:22 Board Certified Radiologist. This report was verified electronically.
[2017-01-25] MEDS: ACETAMINOPHEN 1000 MG/100 ML VIAL IV PRN (14:38)
[2017-01-25] MEDS: HYDROmorphone HCL PF 1 MG/ML VIAL IV PUSH PRN (16:51)
[2017-01-25] MEDS: PANTOPRAZOLE SODIUM 40 MG VIAL IV PUSH SCH (17:33)
[2017-01-25] MEDS: CLINIMIX E 4.25/25 2000 mL- >42 mls/hr IV-CENTRAL SCH ×3 (20:00)
[2017-01-25] MEDS: ENOXAPARIN SODIUM 40 MG/0.4 ML SYRINGE SQ SCH (20:26)
[2017-01-25] MEDS: FAT EMULSION 20% INJ 250 ML (Daily over 8 hours) IV-CENTRAL SCH (20:28)
[2017-01-25] MEDS: PROPOFOL 1000 MG/100 ML INJ 100 ML IV SCH (21:41)
[2017-01-26] VITALS (18 sets, daily range): BP systolic 94–114; BP diastolic 46–66; PULSE 92–123; RESP 21–26; TEMP 97.9–99.3; O2SAT 96–100
[2017-01-26] MEDS: fentaNYL DRIP 250 ML IV SCH ×2 (04:18→23:27)
[2017-01-26] MEDS: NOREPINEPHRINE-DEXTROSE DRIP 250 ML IV SCH (04:18)
[2017-01-26] MEDS: PROPOFOL 1000 MG/100 ML INJ 100 ML IV SCH (04:18)
[2017-01-26 04:39] LABS: ANION GAP 4 MEQ/L (5-15); BICARBONATE GREATER THAN 45.0 MEQ/L (21.0-32.0); BLOOD UREA NITROGEN 33 MG/DL (7-18); CHLORIDE 86 MEQ/L (98-107); GLOMERULAR FILTRATION RATE 77 ML/MIN (>89); SODIUM (NA) 135 MEQ/L (136-145)
[2017-01-26] MEDS: INSULIN NovoLIN REGULAR SUPPLEMENTAL SCALE SQ SCH ×5 (06:00→23:05)
[2017-01-26] MEDS: POTASSIUM CHLOR 40 MEQ PREMIX 100 ML IV PRN ×2 (06:43→08:06)
[2017-01-26] MEDS: CHLORHEXIDINE 0.12% (ORAL KIT) 15 ML CUP MT SCH ×2 (08:00→20:00)
[2017-01-26] MEDS ORDERED: MIDAZOLAM HCL 5 MG/ML VIAL (1 ML) IM ONE (08:45)
[2017-01-26] MEDS ORDERED: VECURONIUM BROMIDE 10 MG VIAL IV PUSH ONE (08:45)
--- NOTE | 2017-01-26 08:49 | HHI.CCPN ---
Subjective Remarks/Hospital Course Hospital Course: 81-year-old female presents with abdominal pain that began about 6 hours duration. The patient states that she has a history of multiple bowel obstructions; prior abdominal surgeries also include hysterectomy, oophorectomy , lysis of adhesions, cholecystectomy, appendectomy, fundoplication. CT abdomen reveals hollow viscous perforation with both retro and intraperitoneal air. Noteworthy is dilated common biliary duct at 1.5 cm s/p cholecystectomy. Clearly an acute abdomen requiring resuscitation, correction of coumadin coagulopathy, and operative repair. A stent is in place in the proximal SMA. Subjective: 01/16: intubated, sedated. leukopenic this morning. mildly hypotensive, receiving ivf bolus. lactate cleared. 01/17: remains intubated. remains marginally hypotensive overnight. however, clinically improving. awake, alert, following commands. uop remains adequate. lactate cleared. hgb stable. more hypoglycemic today and sodium rising. 01/18: seen and examined around 07:30am, delayed note entry. extubated yesterday. initially doing well, now this morning more hypoxic requiring 50% venti mask. cxr with evidence of pulmonary edema. s/p large volume pulmonary edema. 01/19: Worsening oxygenation requiring intubation and mechanical ventilation. Gas exchange acceptable on vent. Perfusion and hydration is acceptable. 01/20: Peripheral perfusion much improved after intubation and ventilator. Renal function acceptable. Too weak to attempt extubation today. 01/21: Fingers warm, pin. Toes remain dusky. TPN tolerated. Large A-aO2 gradient persists unfortunately. 01/22: Diffuse infiltrates persist on CXR. Poor diffusion gradient continues. 01/23: CXR with persistent interstitial edema, but improving. G-tube draining normally, no BM yet. Continue diuresis. Finally looks OK on SBTs. 01/24: Improved gas exchange. Will try to extubate. 01/25: Acceptable oxygenation on FiO2 35%. Satisfactory SBT. Will extubate -> failed due to upper airway obstruction/stridor. This is second time for same reason, will need tracheostomy. 01/26: Plan tracheostomy today after second failure to tolerate extubation. I attempted to call patient's son in law, an ENT physician, but he is on vacation camping in [place] and unavailable. wants to go ahead with procedure. Objective Vital Signs Date Time Temp Pulse Resp B/P Pulse Ox O2 Delivery O2 Flow Rate FiO2 01/26/17 06:00 106 01/26/17 04:00 98.2 23 103/49 100 01/26/17 04:00 40 01/25/17 12:15 Non-Rebreather 12 Intake and Output 01/25/17 01/25/17 01/25/17 07:59 15:59 23:59 Intake Total 1434 ml 839 ml 1082 ml Output Total 1125 ml 1600 ml 1650 ml Balance 309 ml -761 ml -568 ml Result Diagram: 01/23/17 0545 01/26/17 0348 Imaging Last Impressions Abdomen X-Ray 01/16/17 0000 Signed Impressions: Service Date/Time: Monday, January 16, 2017 14:24 - CONCLUSION: No acute abnormality seen. Mitch North MD Abdomen/Pelvis CT 01/15/17 1712 Signed Impressions: Service Date/Time: Sunday, January 15, 2017 18:38 - CONCLUSION: 1. Retroperitoneal air with smaller volume pneumoperitoneum. There is a dilated stomach as well as dilated loops of small bowel throughout the abdomen without obstructing mass or focal transition point. The retroperitoneal air raises concern for perforated gastric or duodenal ulcer. No abscess observed. The dilated bowel could relate to a distal small bowel obstruction or ileus. 2. Colonic diverticulosis without acute inflammation. 3. Intrahepatic and extra hepatic biliary dilatation. The intrahepatic component is slightly more pronounced than the prior study. The gallbladder is surgically absent. Michael Boo Jr., MD Objective Remarks Head: Normal. Neck: Supple Lungs: Good air movement, few bibasilar crackles. Orally intubated today. Heart: NL S1S2, regular rhythm, sinus by tele. No JVD. Abdomen: mildly distended, mildly tender g-tube in place to gravity, light drainage Extremities: Warm, well perfused. Nail beds, fingers improved perfusion. Neuro: RASS +1. Moves 4 limbs spontaneously and with purpose. Opens eyes. Nods head to questions. A/P Assessment and Plan Assessment: 81yF POD 5 s/p ex-lap, ANDI, small bowel resection with g-tube placement now extubated. remobilizing fluid and in moderate pulmonary edema. will aggressively diurese again. Plan by systems: Neurologic: Acute pain secondary to surgical procedure- stable. Tylenol as needed for pain or fever -- prn dilaudid. -- continues to have severe abdominal pain -- d/c Fentanyl gtt while on vent. Respiratory: Acute hypoxic and hypercarbic respiratory failure- was improving, now worsening. Pulmonary Edema -- PRVC vent mode, daily SBTs. -- Keep PEEP to 5 --Extubate Cardiovascular: Hypervolemia Pulmonary edema saline lock ivf --d/c d10w @ 30cc/hr. Wean off now that TPN started. continue cvl for today. Trend CVP -- d/c lasix 40mg iv q8hr --restart lasix bid 01/22 -- Restart plavix when PO. Renal: Continue Parisi for close monitoring of urine output given her relative hypotension. -- Strict I/Os FEN/GI: Acute protein calorie malnutritionsevere Perforated hollow viscus Status post expiratory laparotomy, lysis of adhesions, small bowel resection, G- tube placement 01/16 Hypernatremia Free Water Deficit Nothing by mouth G-tube and NG tube to suction/gravity Close monitoring of CHRIS drain GEN surgeon: Rolando --ICU electrolyte protocol -- daily bmp -- d/c d10w -- daily bmp. aggressive electrolyte replacement. Heme/ID: Anemia secondary to acute blood loss Intra-abdominal Sepsis Serial hemoglobins Slightly trending down does not meet transfusion triggers at this time. d/c abx, culture for fevers. --Culture sputum Endocrine: Hyperglycemia of critical illness -- SSI, every 6, medium scale Prophylaxis: GI Prophylaxis Protonix DVT Prophylaxis -- SCDs restart lovenox. Lines: Arterial line 01/16 new left SCV CVL 01/24, keep today given electrolyte replacement and cvp trending in pulmonary edema. Parisi, keep this as we are actively monitoring urine output Dispo: Remain in the ICU. Overall impression: Trial extubation failed again due to upper airway narrowing/ edema. Plavix for stent when taking PO again. Daily lovenox, hold coumadin (hx of dvt) Shyam La MD Jan 26, 2017 08:49
--- NOTE | 2017-01-26 09:57 | HHI.PR ---
Subjective Subjective Notes Ventilated, sedated, getting ready for bedside trach by CCM team. at bedside, tired. Objective Vitals/I&O Vital Signs Date Time Temp Pulse Resp B/P Pulse Ox O2 Delivery O2 Flow Rate FiO2 01/26/17 09:12 100 40 01/26/17 06:00 106 01/26/17 04:00 98.2 23 103/49 01/25/17 12:15 Non-Rebreather 12 Labs Laboratory Tests Test 01/26/17 03:48 Sodium Level 135 Potassium Level 3.0 Chloride Level 86 Carbon Dioxide Level GREATER THAN 45.0 Anion Gap 4 Blood Urea Nitrogen 33 Creatinine 0.73 Estimat Glomerular Filtration 77 Rate Random Glucose 159 Calcium Level 8.3 B-Type Natriuretic Peptide 159 Date/Time Procedure Status Source Growth 01/22/17 12:21 Gram Stain - Final Complete Sputum Endotracheal 01/22/17 12:21 Sputum Culture - Final Complete Sputum Endotracheal HEAVY GROWTH NORMAL RESPIRATORY JAKI Cardiovascular: Regular Lungs: Clear Abdomen: Non-distended, Other (Incision healing well, dali intact, minimal to no drainage. G tube draining to gravity, bilious fluid. ) A/P Assessment and Plan s/p ex lap adhesiolysis, SBR. Multiple prior abdominal surgeries. Has failed extubation twice. Trach today by [facility]. Continue current care, on TPN. Henok Aranda MD Jan 26, 2017 09:57
--- NOTE | 2017-01-26 11:01 | RADRPT ---
EXAM DATE/TIME: 01/26/2017 10:30 [facility] COMPARISON: CHEST SINGLE AP, January 25, 2017, 12:55. INDICATIONS : Post Trach Placement MEDICAL HISTORY : Cardiovascular disease. SURGICAL HISTORY : Cholecystectomy. Appendectomy ENCOUNTER: Subsequent ACUITY: 3 weeks PAIN SCORE: Non-responsive. LOCATION: Bilateral chest FINDINGS: The tracheostomy tube is present in the distal tip terminates 2.5 cm above the master. Left subclavia n central venous catheter is noted in the tip overlies the expected location of the SVC/right atrial junction. There is consolidation in the left lower lobe. Hyperinflation of both lungs identified. EKG leads overlie the chest and oxygen tubing. Cardiomegaly. Bone density is diminished. CONCLUSION: Tracheostomy tube is noted as above with improved aeration of the left lung. Julio C Hdez MD on January 26, 2017 at 10:58 Board Certified Radiologist. This report was verified electronically.
[2017-01-26] MEDS: ACETAMINOPHEN 1000 MG/100 ML VIAL IV PRN (12:03)
[2017-01-26] MEDS: HYDROmorphone HCL PF 1 MG/ML VIAL IV PUSH PRN ×2 (12:04→15:51)
[2017-01-26] MEDS ORDERED: MIDAZOLAM HCL 5 MG/ML VIAL (1 ML) IV ONE (13:00)
--- NOTE | 2017-01-26 14:51 | PD.PROCEDR ---
Procedure Note Procedure Procedure: Percutaneous tracheostomy with bronchoscopic guidance Operators: Dr. Pavel Parikh for percutaneous tracheostomy, Dr. La for bronchoscopy Informed consent obtained from family and documented on chart Preoperative diagnosis: acute respiratory failure, perforated viscus status post E lap, sepsis Postoperative diagnosis: Same Anesthesia used: Sedation/neuromuscular blockade per Dr. La. 1.5% lidocaine for local infiltration anesthesia Procedure: After ensuring adequate sedation/analgesia neuromuscular blockade, patient was positioned appropriately. After sterile prepping and draping, 1% lidocaine was used for local infiltration anesthesia. Dr. La proceeded bronchoscopy and withdrawing ET tube. Tracheal position was visualized by transillumination. Introducer Angiocath was inserted into the trachea under bronchoscopic guidance and Angiocath was advanced into the trachea following which needle was removed. A guidewire was passed via Angiocath and was visualized passing down the trachea following which Angiocath was then removed. Punch dilator was used to dilate the tracheal ring following which tracheostomy dilator assembly was mounted over the guidewire and advanced to dilate the trachea with dilator being visualized via bronchoscopic guidance entering the trachea during dilation without injuring the posterior tracheal wall. Following this dilator assembly was removed and percutaneous tracheostomy mounted over dilator was advanced over the guidewire into the trachea under direct visualization following which guidewire/dilator were removed. Bronchoscope was inserted at this point by Dr. La via newly inserted tracheostomy and appropriate placement was confirmed by visualizing tracheal rings following which bronchoscope was withdrawn and inner cannula was placed via tracheostomy. After inflating cuff patient was connected to mechanical ventilation via tracheostomy. 4 interrupted sutures were used to secure tracheostomy to neck. Patient tolerated the procedure well with no immediate complications noted. Good hemostasis was achieved at the end of procedure. Postprocedure chest x-ray was ordered and was pending at the time of this dictation and will be reviewed when available. Pavel Parikh MD Jan 26, 2017 14:51
[2017-01-26] MEDS ORDERED: DIGOXIN 0.5 MG/2 ML VIAL IV PUSH ONE ×2 (17:30→23:00)
[2017-01-26] MEDS: PANTOPRAZOLE SODIUM 40 MG VIAL IV PUSH SCH (18:15)
[2017-01-26 19:02] LABS: POTASSIUM 3.6 MEQ/L (3.5-5.1)
[2017-01-26] MEDS: RESP: ALBUTEROL 2.5 MG/IPRATROPIUM 0.5 MG NEB (PRN) INH (19:48)
[2017-01-26] MEDS: CLINIMIX E 4.25/25 2000 mL- >42 mls/hr IV-CENTRAL SCH ×3 (21:51)
[2017-01-26] MEDS: FAT EMULSION 20% INJ 250 ML (Daily over 8 hours) IV-CENTRAL SCH (21:51)
[2017-01-26] MEDS: CHLORHEXIDINE GLUCONATE 2 % 1 PACK (2 CLOTHS) TOP SCH (21:52)
[2017-01-26] MEDS: ENOXAPARIN SODIUM 40 MG/0.4 ML SYRINGE SQ SCH (21:52)
[2017-01-27] VITALS (21 sets, daily range): BP systolic 92–108; BP diastolic 49–63; PULSE 96–148; RESP 20–30; TEMP 97.9–99.8; O2SAT 92–99
[2017-01-27] MEDS: INSULIN NovoLIN REGULAR SUPPLEMENTAL SCALE SQ SCH ×4 (06:00→23:43)
[2017-01-27 06:30] LABS: BICARBONATE 36.7 MEQ/L (21.0-32.0); POTASSIUM 3.5 MEQ/L (3.5-5.1)
--- NOTE | 2017-01-27 06:58 | HHI.CCPN ---
Subjective Remarks/Hospital Course Hospital Course: 81-year-old female presents with abdominal pain that began about 6 hours duration. The patient states that she has a history of multiple bowel obstructions; prior abdominal surgeries also include hysterectomy, oophorectomy , lysis of adhesions, cholecystectomy, appendectomy, fundoplication. CT abdomen reveals hollow viscous perforation with both retro and intraperitoneal air. Noteworthy is dilated common biliary duct at 1.5 cm s/p cholecystectomy. Clearly an acute abdomen requiring resuscitation, correction of coumadin coagulopathy, and operative repair. A stent is in place in the proximal SMA. Subjective: 01/16: intubated, sedated. leukopenic this morning. mildly hypotensive, receiving ivf bolus. lactate cleared. 01/17: remains intubated. remains marginally hypotensive overnight. however, clinically improving. awake, alert, following commands. uop remains adequate. lactate cleared. hgb stable. more hypoglycemic today and sodium rising. 01/18: seen and examined around 07:30am, delayed note entry. extubated yesterday. initially doing well, now this morning more hypoxic requiring 50% venti mask. cxr with evidence of pulmonary edema. s/p large volume pulmonary edema. 01/19: Worsening oxygenation requiring intubation and mechanical ventilation. Gas exchange acceptable on vent. Perfusion and hydration is acceptable. 01/20: Peripheral perfusion much improved after intubation and ventilator. Renal function acceptable. Too weak to attempt extubation today. 01/21: Fingers warm, pin. Toes remain dusky. TPN tolerated. Large A-aO2 gradient persists unfortunately. 01/22: Diffuse infiltrates persist on CXR. Poor diffusion gradient continues. 01/23: CXR with persistent interstitial edema, but improving. G-tube draining normally, no BM yet. Continue diuresis. Finally looks OK on SBTs. 01/24: Improved gas exchange. Will try to extubate. 01/25: Acceptable oxygenation on FiO2 35%. Satisfactory SBT. Will extubate -> failed due to upper airway obstruction/stridor. This is second time for same reason, will need tracheostomy. 01/26: Plan tracheostomy today after second failure to tolerate extubation. I attempted to call patient's son in law, an ENT physician, but he is on vacation camping in [place] and unavailable. wants to go ahead with procedure. 01/27: Persistent SVT. Digoxin started 01/26, add lopressor today iv scheduled. Braething comfortably via new trach. Objective Vital Signs Date Time Temp Pulse Resp B/P Pulse Ox O2 Delivery O2 Flow Rate FiO2 01/27/17 06:00 130 01/27/17 04:10 97 40 01/27/17 04:00 99.8 21 100/49 01/25/17 12:15 Non-Rebreather 12 Intake and Output 01/26/17 01/26/17 01/27/17 08:00 16:00 00:00 Intake Total 1267 ml 1680 ml 960 ml Output Total 630 ml 1575 ml 900 ml Balance 637 ml 105 ml 60 ml Result Diagram: 01/23/17 0545 01/27/17 0520 Imaging Last Impressions Abdomen X-Ray 01/16/17 0000 Signed Impressions: Service Date/Time: Monday, January 16, 2017 14:24 - CONCLUSION: No acute abnormality seen. Mitch North MD Abdomen/Pelvis CT 01/15/17 1712 Signed Impressions: Service Date/Time: Sunday, January 15, 2017 18:38 - CONCLUSION: 1. Retroperitoneal air with smaller volume pneumoperitoneum. There is a dilated stomach as well as dilated loops of small bowel throughout the abdomen without obstructing mass or focal transition point. The retroperitoneal air raises concern for perforated gastric or duodenal ulcer. No abscess observed. The dilated bowel could relate to a distal small bowel obstruction or ileus. 2. Colonic diverticulosis without acute inflammation. 3. Intrahepatic and extra hepatic biliary dilatation. The intrahepatic component is slightly more pronounced than the prior study. The gallbladder is surgically absent. Michael Boo Jr., MD Objective Remarks Head: Normal. Neck: Supple Lungs: Good air movement, few bibasilar crackles. Orally intubated today. Heart: NL S1S2, regular rhythm, sinus by tele. No JVD. Abdomen: mildly distended, mildly tender g-tube in place to gravity, light drainage Extremities: Warm, well perfused. Nail beds, fingers improved perfusion. Neuro: RASS +1. Moves 4 limbs spontaneously and with purpose. Opens eyes. Nods head to questions. A/P Assessment and Plan Assessment: 81yF POD 5 s/p ex-lap, ANDI, small bowel resection with g-tube placement now extubated. remobilizing fluid and in moderate pulmonary edema. will aggressively diurese again. Plan by systems: Neurologic: Acute pain secondary to surgical procedure- stable. Tylenol as needed for pain or fever -- prn dilaudid. -- continues to have severe abdominal pain -- d/c Fentanyl gtt while on vent. Respiratory: Acute hypoxic and hypercarbic respiratory failure- was improving, now worsening. Pulmonary Edema -- PRVC vent mode, daily SBTs. -- Keep PEEP to 5 --Extubate --Tracheostomy 01/26 Cardiovascular: Hypervolemia Pulmonary edema saline lock ivf --d/c d10w @ 30cc/hr. Wean off now that TPN started. continue cvl for today. Trend CVP -- d/c lasix 40mg iv q8hr --restart lasix bid 01/22 -- Restart plavix when PO. --Add lopressor. Renal: Continue Parisi for close monitoring of urine output given her relative hypotension. -- Strict I/Os FEN/GI: Acute protein calorie malnutritionsevere Perforated hollow viscus Status post expiratory laparotomy, lysis of adhesions, small bowel resection, G- tube placement 01/16 Hypernatremia Free Water Deficit Nothing by mouth G-tube and NG tube to suction/gravity Close monitoring of CHRIS drain GEN surgeon: Rolando --ICU electrolyte protocol -- daily bmp -- d/c d10w -- daily bmp. aggressive electrolyte replacement. -- KCL bolus today Heme/ID: Anemia secondary to acute blood loss Intra-abdominal Sepsis Serial hemoglobins Slightly trending down does not meet transfusion triggers at this time. d/c abx, culture for fevers. --Culture sputum Endocrine: Hyperglycemia of critical illness -- SSI, every 6, medium scale Prophylaxis: GI Prophylaxis Protonix DVT Prophylaxis -- SCDs restart lovenox. Lines: Arterial line 01/16 new left SCV CVL 01/24, keep today given electrolyte replacement and cvp trending in pulmonary edema. Parisi, keep this as we are actively monitoring urine output Dispo: Remain in the ICU. Overall impression: Trial extubation failed again due to upper airway narrowing/ edema. Trach 01/26. Plavix for stent when taking PO again. Daily lovenox, hold coumadin (hx of dvt). Start lopressor IV. Shyam La MD Jan 27, 2017 06:58
[2017-01-27] MEDS ORDERED: POTASSIUM CHLOR 40 MEQ PREMIX 100 ML IV ONE (07:00)
[2017-01-27] MEDS: METOPROLOL TARTRATE 5 MG/5 ML VIAL IV PUSH SCH ×3 (07:27→18:36)
[2017-01-27] MEDS: CHLORHEXIDINE 0.12% (ORAL KIT) 15 ML CUP MT SCH ×2 (07:48→20:20)
[2017-01-27] MEDS: HYDROmorphone HCL PF 1 MG/ML VIAL IV PUSH PRN ×2 (08:13→15:09)
[2017-01-27] MEDS: ACETAMINOPHEN 1000 MG/100 ML VIAL IV PRN (08:13)
[2017-01-27] MEDS ORDERED: DIGOXIN 0.5 MG/2 ML VIAL IV PUSH SCH (09:00)
[2017-01-27] MEDS: NOREPINEPHRINE-DEXTROSE DRIP 250 ML IV SCH (10:11)
[2017-01-27] MEDS ORDERED: TERBUTALINE INJ 1 MG/ML AMP SQ PRN (10:45)
[2017-01-27] MEDS ORDERED: PHENYLEPHRINE INJ 80 MG in DEXTROSE 5% IN WATE 500 ML INJ 492 ML IV SCH ×2 (10:45)
[2017-01-27] MEDS ORDERED: AMIODARONE INJ 450 MG in DEXTROSE 5% IN WATE(EXCEL) INJ 241 ML IV SCH ×2 (10:45)
[2017-01-27] MEDS ORDERED: AMIODARONE INJ 150 MG in DEXTROSE 5% IN WATER 100ML INJ 97 ML IV ONE ×2 (10:45)
--- NOTE | 2017-01-27 13:23 | PD.PROCEDR ---
Procedure Note Procedure Note for 01/26/17: DX: Respiratory Failure (J96.00) OP: Bronchoscopy (14724) Procedure: Time out performed. ICU monitoring in place. Versed 5 mg, fentanyl 100 mics, vecuronium 10 mg iv. Ventrate 20/min. Through indwelling orotracheal tube the tracheobronchial tree was inspected. All segemnts normal, no inspissated material. Mucosa clean. View was used to guide percutaneous tracheostomy dictated in separate note. Sats remained at > 95% throughout procedure. Shyam La MD Jan 27, 2017 13:23
[2017-01-27] MEDS: RESP: ALBUTEROL 2.5 MG/IPRATROPIUM 0.5 MG NEB (PRN) INH (15:44)
[2017-01-27] MEDS ORDERED: METOPROLOL TARTRATE 5 MG/5 ML VIAL IV PUSH ONE (16:00)
[2017-01-27] MEDS ORDERED: FUROSEMIDE 40 MG/4 ML VIAL IV PUSH ONE (16:00)
--- NOTE | 2017-01-27 16:17 | RADRPT ---
EXAM DATE/TIME: 01/27/2017 15:56 [facility] COMPARISON: CHEST SINGLE AP, January 26, 2017, 10:30. INDICATIONS : Shortness of breath. MEDICAL HISTORY : Cardiovascular disease. SURGICAL HISTORY : Cholecystectomy. Appendectomy ENCOUNTER: Subsequent ACUITY: 3 weeks PAIN SCORE: Non-responsive. LOCATION: Bilateral chest FINDINGS: The tracheostomy tube remains in place. There is no pneumothorax. There is new mild infiltrate in the right lung base. Otherwise, the rest of the right lung field remains clear and stable.. There Lizbeth nues to be an infiltrate in the left lower lung which is about the same compared to the prior exam. N o definite new infiltrates are seen. The heart size is stable. No significant pleural effusions. The bony structures are stable. CONCLUSION: There continues to be an infiltrate in the left lower lung. No significant changes compared to the pr ior study. There is a new mild infiltrate in the right lung base. Constantine Zeng MD on January 27, 2017 at 16:13 Board Certified Radiologist. This report was verified electronically.
[2017-01-27] MEDS: PANTOPRAZOLE SODIUM 40 MG VIAL IV PUSH SCH (16:36)
--- NOTE | 2017-01-27 18:23 | HHI.PR ---
Subjective Subjective Notes s/p trach Objective Vitals/I&O Vital Signs Date Time Temp Pulse Resp B/P Pulse Ox O2 Delivery O2 Flow Rate FiO2 01/27/17 16:00 99.0 138 30 108/52 97 01/27/17 16:00 40 01/25/17 12:15 Non-Rebreather 12 Labs Laboratory Tests Test 01/26/17 01/27/17 18:24 05:20 Sodium Level 135 134 Potassium Level 3.6 3.5 Chloride Level 91 92 Carbon Dioxide Level 41.0 36.7 Anion Gap 3 5 Blood Urea Nitrogen 40 40 Creatinine 0.63 0.70 Estimat Glomerular Filtration 91 81 Rate Random Glucose 153 127 Calcium Level 8.2 8.4 Abdomen: Non-distended, Non-tender A/P Assessment and Plan 81yo female s/p exlap, ANDI, g-tube, small bowel resection, stable. - appreciate director of family service [facility] help - abdomen exam benign, wound c/d/i, ok to start TF at 10cc/h trial, check residuals Srinivasan Brown MD Jan 27, 2017 18:23
[2017-01-27] MEDS: FAT EMULSION 20% INJ 250 ML (Daily over 8 hours) IV-CENTRAL SCH (20:00)
[2017-01-27] MEDS: CLINIMIX E 4.25/25 2000 mL- >42 mls/hr IV-CENTRAL SCH ×3 (20:00)
[2017-01-27] MEDS: ENOXAPARIN SODIUM 40 MG/0.4 ML SYRINGE SQ SCH (20:19)
[2017-01-28] VITALS (20 sets, daily range): BP systolic 88–131; BP diastolic 45–87; PULSE 72–123; RESP 25–30; TEMP 98.1–101.8; O2SAT 96–100
[2017-01-28] MEDS: METOPROLOL TARTRATE 5 MG/5 ML VIAL IV PUSH SCH ×2 (01:00→06:06)
[2017-01-28 03:48] LABS: BASOPHIL # 0.1 TH/MM3 (0-0.2); BASOPHIL % 0.2 % (0.0-2.0); HEMATOCRIT 27.9 % (35.0-46.0); LYMPHOCYTE # 0.8 TH/MM3 (1.0-4.8); MEAN CELL VOLUME 92.7 FL (80.0-100.0); MEAN CORPUSCULAR HEMOGLOBIN 28.1 PG (27.0-34.0); MEAN CORPUSCULAR HGB CONC 30.3 % (32.0-36.0); MONO % 10.1 % (0.0-8.0); NEUT % 87.7 % (16.0-70.0); PLATELET COUNT 527 TH/MM3 (150-450); RED BLOOD COUNT 3.01 MIL/MM3 (4.00-5.30); RED CELL DISTRIBUTION WIDTH 15.4 % (11.6-17.2); WHITE BLOOD COUNT 38.8 TH/MM3 (4.0-11.0)
[2017-01-28 03:50] LABS: HEMO FLAGS AUTO DIFF
[2017-01-28] MEDS: CHLORHEXIDINE GLUCONATE 2 % 1 PACK (2 CLOTHS) TOP SCH (04:00)
[2017-01-28 04:27] LABS: POTASSIUM 5.3 MEQ/L (3.5-5.1)
[2017-01-28 04:36] LABS: DIGOXIN 2.2 NG/ML (0.8-2.0)
[2017-01-28] MEDS ORDERED: EPINEPHrine HCL (1:10,000) 1 MG/10 ML SYRINGE IV ONE (05:00)
[2017-01-28] MEDS: INSULIN NovoLIN REGULAR SUPPLEMENTAL SCALE SQ SCH ×3 (06:00→18:31)
[2017-01-28 06:46] LABS: BANDS 14 % (0-6); METAMYELOCYTES 1 % (0-1); MYELOCYTES 1 % (0-0); NEUTROPHIL # MANUAL DIFF 33.4 TH/MM3 (1.8-7.7); POLYS (SEG NEUTROPHILS) 70 % (16-70); WBC DIFF SAMPLE 100
[2017-01-28 06:49] LABS: PLATELET ESTIMATE SMEAR HIGH (NORMAL); PLATELET MORPHOLOGY NORMAL (NORMAL)
[2017-01-28 06:52] LABS: SCAN/DIFF FINAL DIFF MANUAL; STOMATOCYTES 1+ (NORMAL)
[2017-01-28] MEDS: RESP: ALBUTEROL 2.5 MG/IPRATROPIUM 0.5 MG NEB (PRN) INH ×5 (07:32→14:45)
[2017-01-28 07:44] LABS: BLOOD GAS VENOUS BASE EXCESS -0.8 mmol/L (-2-2); BLOOD GAS VENOUS HCO3 29 mmol/L (22-26); BLOOD GAS VENOUS O2 CONTENT 9.6 Vol % (9.0-17.0); BLOOD GAS VENOUS O2 HGB SAT 80 % (70-76); BLOOD GAS VENOUS PCO2 115 mmHg (44-48); BLOOD GAS VENOUS PO2 52 mmHg (35-40); BLOOD GAS VENOUS pH 7.03 (7.360-7.400); CRITICAL VALUE YES; OXYGEN DEVICE VENTILATOR; TEMP CORR TO 98.6; VENT SETTINGS PRVC/20/350/1.0/+8
[2017-01-28 07:45] LABS: DRAW SITE CENTRAL LINE; FIO2 60 %; STAT YES
[2017-01-28] MEDS: EPINEPHrine HCL (1:10,000) 1 MG/10 ML SYRINGE IV PRN ×2 (07:45→08:00)
--- NOTE | 2017-01-28 07:53 | HHI.CCPN ---
Subjective Remarks/Hospital Course Hospital Course: 81-year-old female presents with abdominal pain that began about 6 hours duration. The patient states that she has a history of multiple bowel obstructions; prior abdominal surgeries also include hysterectomy, oophorectomy , lysis of adhesions, cholecystectomy, appendectomy, fundoplication. CT abdomen reveals hollow viscous perforation with both retro and intraperitoneal air. Noteworthy is dilated common biliary duct at 1.5 cm s/p cholecystectomy. Clearly an acute abdomen requiring resuscitation, correction of coumadin coagulopathy, and operative repair. A stent is in place in the proximal SMA. Subjective: 01/16: intubated, sedated. leukopenic this morning. mildly hypotensive, receiving ivf bolus. lactate cleared. 01/17: remains intubated. remains marginally hypotensive overnight. however, clinically improving. awake, alert, following commands. uop remains adequate. lactate cleared. hgb stable. more hypoglycemic today and sodium rising. 01/18: seen and examined around 07:30am, delayed note entry. extubated yesterday. initially doing well, now this morning more hypoxic requiring 50% venti mask. cxr with evidence of pulmonary edema. s/p large volume pulmonary edema. 01/19: Worsening oxygenation requiring intubation and mechanical ventilation. Gas exchange acceptable on vent. Perfusion and hydration is acceptable. 01/20: Peripheral perfusion much improved after intubation and ventilator. Renal function acceptable. Too weak to attempt extubation today. 01/21: Fingers warm, pin. Toes remain dusky. TPN tolerated. Large A-aO2 gradient persists unfortunately. 01/22: Diffuse infiltrates persist on CXR. Poor diffusion gradient continues. 01/23: CXR with persistent interstitial edema, but improving. G-tube draining normally, no BM yet. Continue diuresis. Finally looks OK on SBTs. 01/24: Improved gas exchange. Will try to extubate. 01/25: Acceptable oxygenation on FiO2 35%. Satisfactory SBT. Will extubate -> failed due to upper airway obstruction/stridor. This is second time for same reason, will need tracheostomy. 01/26: Plan tracheostomy today after second failure to tolerate extubation. I attempted to call patient's son in law, an ENT physician, but he is on vacation camping in [place] and unavailable. wants to go ahead with procedure. 01/27: Persistent SVT. Digoxin started 01/26, add lopressor today iv scheduled. Breathing comfortably via new trach. 01/28: Respiratory failure with pH 7.04, PCO2 115 due to severe bronchospasm. Progressed to full cardiac arrest. I had a lengthy talk with her daughter (in [facility]) and expressed my concern that she was terminally ill at this point after her cardiac arrest earlier today. All questions were answered and she requested a Palliative Care consult. Objective Vital Signs Date Time Temp Pulse Resp B/P Pulse Ox O2 Delivery O2 Flow Rate FiO2 01/28/17 07:33 97 100 01/28/17 06:00 115 01/28/17 04:00 98.5 25 88/52 01/25/17 12:15 Non-Rebreather 12 Intake and Output 01/27/17 01/27/17 01/28/17 08:00 16:00 00:00 Intake Total 930 ml 2451 ml Output Total 650 ml 1370 ml Balance 280 ml 1081 ml Result Diagram: 01/28/17 0325 01/28/17 0325 Other Results Laboratory Tests Test 01/28/17 07:14 Blood Gas Puncture Site CENTRAL LINE Blood Gas Patient Temperature 98.6 Venous Blood pH 7.03 (7.360-7.400) Venous Blood Partial Pressure 115 mmHg CO2 (44-48) Venous Blood Partial Pressure 52 mmHg (35-40) O2 Venous Blood HCO3 29 mmol/L (22-26) Venous Blood Oxygen Saturation 80 % (70-76) Venous Blood Oxygen Content 9.6 Vol % (9.0-17.0) Venous Blood Base Excess -0.8 mmol/L (-2-2) Oxygen Delivery Device VENTILATOR Blood Gas Ventilator Setting PRVC/20/350/1.0/+8 Blood Gas Inspired Oxygen 60 % Imaging Last Impressions Abdomen X-Ray 01/16/17 0000 Signed Impressions: Service Date/Time: Monday, January 16, 2017 14:24 - CONCLUSION: No acute abnormality seen. Mitch North MD Abdomen/Pelvis CT 01/15/17 1712 Signed Impressions: Service Date/Time: Sunday, January 15, 2017 18:38 - CONCLUSION: 1. Retroperitoneal air with smaller volume pneumoperitoneum. There is a dilated stomach as well as dilated loops of small bowel throughout the abdomen without obstructing mass or focal transition point. The retroperitoneal air raises concern for perforated gastric or duodenal ulcer. No abscess observed. The dilated bowel could relate to a distal small bowel obstruction or ileus. 2. Colonic diverticulosis without acute inflammation. 3. Intrahepatic and extra hepatic biliary dilatation. The intrahepatic component is slightly more pronounced than the prior study. The gallbladder is surgically absent. Michael Boo Jr., MD Objective Remarks Head: Normal. Neck: Supple Lungs: Good air movement, few bibasilar crackles. Orally intubated today. Heart: NL S1S2, regular rhythm, sinus by tele. No JVD. Abdomen: mildly distended, mildly tender g-tube in place to gravity, light drainage Extremities: Warm, well perfused. Nail beds, fingers improved perfusion. Neuro: RASS +1. Moves 4 limbs spontaneously and with purpose. Opens eyes. Nods head to questions. A/P Assessment and Plan Assessment: 81yF POD 5 s/p ex-lap, ANDI, small bowel resection with g-tube placement now extubated. remobilizing fluid and in moderate pulmonary edema. will aggressively diurese again. Plan by systems: Neurologic: Acute pain secondary to surgical procedure- stable. Tylenol as needed for pain or fever -- prn dilaudid. -- continues to have severe abdominal pain -- d/c Fentanyl gtt while on vent. Respiratory: Acute hypoxic and hypercarbic respiratory failure- was improving, now worsening. Pulmonary Edema -- PRVC vent mode, daily SBTs. -- Keep PEEP to 5 --Extubate --Tracheostomy 01/26 Cardiovascular: Hypervolemia Pulmonary edema saline lock ivf --d/c d10w @ 30cc/hr. Wean off now that TPN started. continue cvl for today. Trend CVP -- d/c lasix 40mg iv q8hr --restart lasix bid 01/22 -- Restart plavix when PO. --Add lopressor. Renal: Continue Parisi for close monitoring of urine output given her relative hypotension. -- Strict I/Os FEN/GI: Acute protein calorie malnutritionsevere Perforated hollow viscus Status post expiratory laparotomy, lysis of adhesions, small bowel resection, G- tube placement 01/16 Hypernatremia Free Water Deficit Nothing by mouth G-tube and NG tube to suction/gravity Close monitoring of CHRIS drain GEN surgeon: Rolando --ICU electrolyte protocol -- daily bmp -- d/c d10w -- daily bmp. aggressive electrolyte replacement. -- KCL bolus today Heme/ID: Anemia secondary to acute blood loss Intra-abdominal Sepsis Serial hemoglobins Slightly trending down does not meet transfusion triggers at this time. d/c abx, culture for fevers. --Culture sputum Endocrine: Hyperglycemia of critical illness -- SSI, every 6, medium scale Prophylaxis: GI Prophylaxis Protonix DVT Prophylaxis -- SCDs restart lovenox. Lines: Arterial line 01/16 new left SCV CVL 01/24, keep today given electrolyte replacement and cvp trending in pulmonary edema. Parisi, keep this as we are actively monitoring urine output Dispo: Remain in the ICU. Overall impression: Cardiac arrest due to hypercapneic failure from severe bronchospasm. She is critically ill and unstable. We are unable to adequately blow off CO2 at this point despite several hours of continuous manipulations of the ventilator and dilators. Critical Care 60 mins Shyam La MD Jan 28, 2017 07:53
[2017-01-28] MEDS: CHLORHEXIDINE 0.12% (ORAL KIT) 15 ML CUP MT SCH ×2 (08:00→19:35)
[2017-01-28 08:43] LABS: BLOOD GAS BASE EXCESS -4.3 mmol/L (-2-2); BLOOD GAS CARBOXYHEMOGLOBIN 0.5 % (0-4); BLOOD GAS HCO3 28 mmol/L (22-26); BLOOD GAS METHEMOGLOBIN 1.2 % (0-2); BLOOD GAS O2 HGB SATURATION 98 % (90-100); BLOOD GAS OXYGEN CONTENT 12.2 Vol % (12.0-20.0); BLOOD GAS PCO2 139 mmHg (38-42); BLOOD GAS PO2 307 mmHg (61-120); BLOOD GAS TOTAL HGB 8.4 G/DL (12.0-16.0); TEMP CORR TO 98.6
[2017-01-28 08:44] LABS: CRITICAL VALUE YES; DRAW SITE ART LINE; FIO2 100 %; OXYGEN DEVICE VENTILATOR; STAT YES; ULNAR PULSE PRESENT; VENT SETTINGS PRVC/30/300/0.7/+5
[2017-01-28] MEDS ORDERED: EPINEPHrine 2 MG/D5W 250 ML IV SCH ×2 (09:30)
[2017-01-28 09:31] LABS: BLOOD GAS BASE EXCESS -2.9 mmol/L (-2-2); BLOOD GAS CARBOXYHEMOGLOBIN 0.9 % (0-4); BLOOD GAS HCO3 25 mmol/L (22-26); BLOOD GAS O2 HGB SATURATION 98 % (90-100); BLOOD GAS OXYGEN CONTENT 12.4 Vol % (12.0-20.0); BLOOD GAS PCO2 69 mmHg (38-42); BLOOD GAS PO2 230 mmHg (61-120); BLOOD GAS TOTAL HGB 8.6 G/DL (12.0-16.0); TEMP CORR TO 98.6
[2017-01-28 09:32] LABS: CRITICAL VALUE YES; DRAW SITE ART LINE; FIO2 70 %; OXYGEN DEVICE VENTILATOR; STAT NO; ULNAR PULSE PRESENT; VENT SETTINGS PC/AC
[2017-01-28 12:19] LABS: BLOOD GAS CARBOXYHEMOGLOBIN 0.9 % (0-4); BLOOD GAS HCO3 25 mmol/L (22-26); BLOOD GAS O2 HGB SATURATION 98 % (90-100); BLOOD GAS OXYGEN CONTENT 11.6 Vol % (12.0-20.0); BLOOD GAS PCO2 63 mmHg (38-42); BLOOD GAS PO2 229 mmHg (61-120); BLOOD GAS TOTAL HGB 8.1 G/DL (12.0-16.0); CRITICAL VALUE YES; OXYGEN DEVICE VENTILATOR; TEMP CORR TO 98.6
[2017-01-28 12:20] LABS: DRAW SITE ART LINE; FIO2 70 %; STAT NO; ULNAR PULSE PRESENT; VENT SETTINGS PC/AC
[2017-01-28 13:25] LABS: BICARBONATE 28.2 MEQ/L (21.0-32.0); POTASSIUM 5.2 MEQ/L (3.5-5.1)
--- NOTE | 2017-01-28 13:57 | HHI.PR ---
Subjective Subjective Notes S/p respiratory arrest this morning On MV via trach Mr. Deshpadne and daughter at bedside; tearful Objective Vitals/I&O Vital Signs Date Time Temp Pulse Resp B/P Pulse Ox O2 Delivery O2 Flow Rate FiO2 01/28/17 12:00 91 01/28/17 12:00 70 01/28/17 12:00 100.4 28 114/55 99 01/25/17 12:15 Non-Rebreather 12 Labs Laboratory Tests Test 01/28/17 01/28/17 01/28/17 01/28/17 03:25 07:14 08:20 09:14 White Blood Count 38.8 Red Blood Count 3.01 Hemoglobin 8.4 Hematocrit 27.9 Mean Corpuscular Volume 92.7 Mean Corpuscular Hemoglobin 28.1 Mean Corpuscular Hemoglobin 30.3 Concent Red Cell Distribution Width 15.4 Platelet Count 527 Mean Platelet Volume 9.1 Neutrophils (%) (Auto) 87.7 Lymphocytes (%) (Auto) 2.0 Monocytes (%) (Auto) 10.1 Eosinophils (%) (Auto) 0.0 Basophils (%) (Auto) 0.2 Neutrophils # (Auto) 34.0 Lymphocytes # (Auto) 0.8 Monocytes # (Auto) 3.9 Eosinophils # (Auto) 0.0 Basophils # (Auto) 0.1 CBC Comment AUTO DIFF Differential Total Cells 100 Counted Neutrophils % (Manual) 70 Band Neutrophils % 14 Lymphocytes % 4 Monocytes % 10 Neutrophils # (Manual) 33.4 Metamyelocytes 1 Myelocytes 1 Differential Comment FINAL DIFF MANUAL Platelet Estimate HIGH Platelet Morphology Comment NORMAL Stomatocytes 1+ Sodium Level 127 Potassium Level 5.3 Chloride Level 89 Carbon Dioxide Level 33.0 Anion Gap 5 Blood Urea Nitrogen 62 Creatinine 1.37 Estimat Glomerular Filtration 37 Rate Random Glucose 232 Calcium Level 8.3 Digoxin Level 2.2 Blood Gas Puncture Site CENTRAL LINE ART LINE ART LINE Blood Gas Patient Temperature 98.6 98.6 98.6 Venous Blood pH 7.03 Venous Blood Partial Pressure 115 CO2 Venous Blood Partial Pressure 52 O2 Venous Blood HCO3 29 Venous Blood Oxygen Saturation 80 Venous Blood Oxygen Content 9.6 Venous Blood Base Excess -0.8 Oxygen Delivery Device VENTILATOR VENTILATOR VENTILATOR Blood Gas Ventilator Setting PRVC/20/350/1.0/+8 PRVC/30/300/0.7/+5 PC/AC Blood Gas Inspired Oxygen 60 100 70 Blood Gas HCO3 28 25 Blood Gas Base Excess -4.3 -2.9 Blood Gas Oxygen Saturation 98 98 Arterial Blood pH 6.93 7.18 Arterial Blood Partial 139 69 Pressure CO2 Arterial Blood Partial 307 230 Pressure O2 Arterial Blood Oxygen Content 12.2 12.4 Arterial Blood 0.5 0.9 Carboxyhemoglobin Arterial Blood Methemoglobin 1.2 1.0 Blood Gas Hemoglobin 8.4 8.6 Test 01/28/17 01/28/17 11:44 12:25 Blood Gas Puncture Site ART LINE Blood Gas Patient Temperature 98.6 Blood Gas HCO3 25 Blood Gas Base Excess -2.0 Blood Gas Oxygen Saturation 98 Arterial Blood pH 7.22 Arterial Blood Partial 63 Pressure CO2 Arterial Blood Partial 229 Pressure O2 Arterial Blood Oxygen Content 11.6 Arterial Blood 0.9 Carboxyhemoglobin Arterial Blood Methemoglobin 1.0 Blood Gas Hemoglobin 8.1 Oxygen Delivery Device VENTILATOR Blood Gas Ventilator Setting PC/AC Blood Gas Inspired Oxygen 70 Sodium Level 129 Potassium Level 5.2 Chloride Level 92 Carbon Dioxide Level 28.2 Anion Gap 9 Blood Urea Nitrogen 81 Creatinine 1.79 Estimat Glomerular Filtration 27 Rate Random Glucose 254 Calcium Level 7.9 Cardiovascular: Regular Lungs: Clear Abdomen: Other (midline incision; abdomen soft ) Extremities: Other (moderate BUE edema ) Narrative Exam G tube to gravity A/P Assessment and Plan 81 year old female s/p ex lap; ANDI; G tube placement; Small bowel resection -CCM following---s/p resp arrest--on MV via trach -Dressing change: Primapore dressing to midline incision; change daily and PRN -Palliative Care consult to help family establish goals of treatment -Also discussed with Kimberli Lundberg Jan 28, 2017 13:57
[2017-01-28] MEDS: fentaNYL DRIP 250 ML IV SCH (14:25)
[2017-01-28] MEDS ORDERED: MORPHINE SULFATE 8 MG/ML INJ IV PUSH PRN (15:30)
[2017-01-28] MEDS ORDERED: LORazepam 2 MG/ML VIAL IV PUSH PRN ×2 (15:30)
--- NOTE | 2017-01-28 16:22 | PD.CONS ---
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 participate in the care of Ms. Deshpande. Attestation To help prompt me to consider important information that might be impacting today's encounter and assessment, information from prior notes written by myself or my colleagues may have been "brought forward" into today's note. My signature on this note, however, is an attestation that I personally performed the exam, history, and/or decision-making noted today, and, unless otherwise indicated, the interactions with patient, family, and staff as well as the review of records all occurred today. I also attest that the listed assessment and stated plan reflect my best clinical judgment today based on the combination of historical information, prior notes, and today's exam/ interactions. When time spent is documented, it refers only to time spent today by the signer, or if indicated, combined time spent today by collaborating physician/nurse practitioner. Oralia Haque Jan 28, 2017 16:20
[2017-01-28 17:20] LABS: BLOOD GAS BASE EXCESS 0.5 mmol/L (-2-2); BLOOD GAS CARBOXYHEMOGLOBIN 1.2 % (0-4); BLOOD GAS HCO3 24 mmol/L (22-26); BLOOD GAS METHEMOGLOBIN 1.3 % (0-2); BLOOD GAS O2 HGB SATURATION 98 % (90-100); BLOOD GAS OXYGEN CONTENT 10.6 Vol % (12.0-20.0); BLOOD GAS PCO2 32 mmHg (38-42); BLOOD GAS PO2 295 mmHg (61-120); BLOOD GAS TOTAL HGB 7.2 G/DL (12.0-16.0); CRITICAL VALUE NO; DRAW SITE ART LINE; FIO2 70 %; OXYGEN DEVICE VENTILATOR; STAT NO; TEMP CORR TO 98.6; ULNAR PULSE PRESENT; VENT SETTINGS PC/AC
[2017-01-28] MEDS: PANTOPRAZOLE SODIUM 40 MG VIAL IV PUSH SCH (18:30)
[2017-01-28] MEDS: CLINIMIX E 4.25/25 2000 mL- >42 mls/hr IV-CENTRAL SCH ×3 (19:34)
[2017-01-28] MEDS: FAT EMULSION 20% INJ 250 ML (Daily over 8 hours) IV-CENTRAL SCH (19:38)
[2017-01-28] MEDS ORDERED: ENOXAPARIN SODIUM 30 MG/0.3 ML SYRINGE SQ SCH (20:00)
[2017-01-28] MEDS: ACETAMINOPHEN 1000 MG/100 ML VIAL IV PRN (20:11)
[2017-01-28 21:53] LABS: BLOOD GAS BASE EXCESS -1.2 mmol/L (-2-2); BLOOD GAS CARBOXYHEMOGLOBIN 0.9 % (0-4); BLOOD GAS HCO3 22 mmol/L (22-26); BLOOD GAS METHEMOGLOBIN 1.1 % (0-2); BLOOD GAS O2 HGB SATURATION 97 % (90-100); BLOOD GAS OXYGEN CONTENT 13.4 Vol % (12.0-20.0); BLOOD GAS PCO2 32 mmHg (38-42); BLOOD GAS PO2 172 mmHg (61-120); BLOOD GAS TOTAL HGB 9.5 G/DL (12.0-16.0); CRITICAL VALUE NO; OXYGEN DEVICE VENTILATOR; TEMP CORR TO 98.6
[2017-01-28 21:57] LABS: DRAW SITE ART LINE; FIO2 45 %; STAT NO; VENT SETTINGS PC/AC
[2017-01-28] MEDS ORDERED: EPINEPHrine HCL (1:1000) 1 MG/ML VIAL ONE (23:59)
[2017-01-29] VITALS (17 sets, daily range): BP systolic 64–132; BP diastolic 24–61; PULSE 96–134; RESP 24–30; TEMP 98.6–102.1; O2SAT 76–100
[2017-01-29] MEDS: INSULIN NovoLIN REGULAR SUPPLEMENTAL SCALE SQ SCH ×3 (01:09→11:38)
[2017-01-29 01:20] LABS: BLOOD GAS BASE EXCESS -0.6 mmol/L (-2-2); BLOOD GAS CARBOXYHEMOGLOBIN 0.9 % (0-4); BLOOD GAS HCO3 23 mmol/L (22-26); BLOOD GAS METHEMOGLOBIN 1.1 % (0-2); BLOOD GAS O2 HGB SATURATION 97 % (90-100); BLOOD GAS PCO2 31 mmHg (38-42); BLOOD GAS PO2 157 mmHg (61-120); TEMP CORR TO 98.6
[2017-01-29 01:21] LABS: CRITICAL VALUE NO; OXYGEN DEVICE VENT
[2017-01-29 01:22] LABS: DRAW SITE ART LINE; FIO2 40 %; STAT NO; ULNAR PULSE PRESENT; VENT SETTINGS SEE COMMENTS
[2017-01-29] MEDS: CHLORHEXIDINE GLUCONATE 2 % 1 PACK (2 CLOTHS) TOP SCH (04:00)
[2017-01-29] MEDS: ACETAMINOPHEN 1000 MG/100 ML VIAL IV PRN (04:38)
--- NOTE | 2017-01-29 08:42 | HHI.CCPN ---
Subjective Remarks/Hospital Course Hospital Course: 81-year-old female presents with abdominal pain that began about 6 hours duration. The patient states that she has a history of multiple bowel obstructions; prior abdominal surgeries also include hysterectomy, oophorectomy , lysis of adhesions, cholecystectomy, appendectomy, fundoplication. CT abdomen reveals hollow viscous perforation with both retro and intraperitoneal air. Noteworthy is dilated common biliary duct at 1.5 cm s/p cholecystectomy. Clearly an acute abdomen requiring resuscitation, correction of coumadin coagulopathy, and operative repair. A stent is in place in the proximal SMA. 01/16: intubated, sedated. leukopenic this morning. mildly hypotensive, receiving ivf bolus. lactate cleared. 01/17: remains intubated. remains marginally hypotensive overnight. however, clinically improving. awake, alert, following commands. uop remains adequate. lactate cleared. hgb stable. more hypoglycemic today and sodium rising. 01/18: seen and examined around 07:30am, delayed note entry. extubated yesterday. initially doing well, now this morning more hypoxic requiring 50% venti mask. cxr with evidence of pulmonary edema. s/p large volume pulmonary edema. 01/19: Worsening oxygenation requiring intubation and mechanical ventilation. Gas exchange acceptable on vent. Perfusion and hydration is acceptable. 01/20: Peripheral perfusion much improved after intubation and ventilator. Renal function acceptable. Too weak to attempt extubation today. 01/21: Fingers warm, pin. Toes remain dusky. TPN tolerated. Large A-aO2 gradient persists unfortunately. 01/22: Diffuse infiltrates persist on CXR. Poor diffusion gradient continues. 01/23: CXR with persistent interstitial edema, but improving. G-tube draining normally, no BM yet. Continue diuresis. Finally looks OK on SBTs. 01/24: Improved gas exchange. Will try to extubate. 01/25: Acceptable oxygenation on FiO2 35%. Satisfactory SBT. Will extubate -> failed due to upper airway obstruction/stridor. This is second time for same reason, will need tracheostomy. 01/26: Plan tracheostomy today after second failure to tolerate extubation. I attempted to call patient's son in law, an ENT physician, but he is on vacation camping in [place] and unavailable. wants to go ahead with procedure. 01/27: Persistent SVT. Digoxin started 01/26, add lopressor today iv scheduled. Breathing comfortably via new trach. 01/28: Respiratory failure with pH 7.04, PCO2 115 due to severe bronchospasm. Progressed to full cardiac arrest. I had a lengthy talk with her daughter (in [facility]) and expressed my concern that she was terminally ill at this point after her cardiac arrest earlier today. All questions were answered and she requested a Palliative Care consult. Subjective: 01/29: Events yesterday noted. Currently awake on the ventilator on a fentanyl drip at 150 an hour. Patient currently DNR. Tolerating TPN. A.m. labs all pending. Tachycardic on epinephrine drip. We'll switch back to Tony-Synephrine. Objective Vital Signs Date Time Temp Pulse Resp B/P Pulse Ox O2 Delivery O2 Flow Rate FiO2 01/29/17 06:00 101 01/29/17 04:00 102.1 30 132/41 100 01/29/17 04:00 70 01/25/17 12:15 Non-Rebreather 12 Intake and Output 01/28/17 01/28/17 01/29/17 08:00 16:00 00:00 Intake Total 831 ml 1955 ml 1236 ml Output Total 350 ml 170 ml 520 ml Balance 481 ml 1785 ml 716 ml Result Diagram: 01/28/17 0325 01/28/17 1225 Imaging Last 72 hours Impressions Chest X-Ray 01/27/17 0000 Signed Impressions: Service Date/Time: Friday, January 27, 2017 15:56 - CONCLUSION: There continues to be an infiltrate in the left lower lung. No significant changes compared to the prior study. There is a new mild infiltrate in the right lung base. Constantine Zeng MD Objective Remarks GENERAL: 81-year-old cachectic female, critically ill currently resting in bed in moderate respiratory distress SKIN: Warm and dry. No rash HEAD: Atraumatic. Normocephalic. EYES: Pupils equal and round about 3 mm bilaterally and reactive. No scleral icterus. No injection or drainage. ENT: No nasal bleeding or discharge. Mucous membranes pink and moist. NECK: Trachea midline. No JVD. CARDIOVASCULAR: Tachycardic, IR. S1, S2 no S4 without murmur RESPIRATORY: Diminished breath sounds throughout all lung munoz anteriorly and posteriorly. Positive end expiratory wheezes. GASTROINTESTINAL: Abdomen soft, non-tender, nondistended. Left-sided G-tube is clean dry and intact without drainage or erythema MUSCULOSKELETAL: Extremities without significant peripheral edema. No obvious deformities. Right femoral arterial line is clean dry and intact. Left subclavian CVL is clean dry and intact. NEUROLOGICAL: Awake and alert. No obvious cranial nerve deficits. Motor grossly within normal limits. Five out of 5 muscle strength in the arms and legs. Normal speech. A/P Assessment and Plan Neuro/Psych: Acute pain secondary to surgical procedure Anxiety disorder NOS Chronic benzodiazepine use Ofirmev 1 g every 6 hours when necessary fever Currently on Ativan 0.5-1 mg IV every 2 hours when necessary anxiety Currently on a fentanyl drip at 150 an hour for pain management Holding home medications Topamax 50 mg twice a day and Elavil 50 mg at bedtime while nothing by mouth. Resume when clinically indicated Respiratory: Ventilator dependent respiratory failure Secondary to hypoxic and hypercarbic respiratory failure History of recurrent Pulmonary Edema PRVC 24/400/07/30/39 Ventilator bundle Duo nebs every 4 hours with albuterol every 2 hours. Dyspnea Solu-Medrol 40 every 8 Pulmicort twice daily Not ready for spontaneous breathing trials A.m. ABG pending --Tracheostomy 01/26 Cardiovascular: Atrial flutter with RVR In Hospital cardiac arrest Cardiac arrest due to hypercapneic failure from severe bronchospasm Currently on Tony-Synephrine at 40 mcg/m to maintain MAP greater than 65. Switching from epinephrine due to tachycardia currently at 3 mics grams per minute Troponin yesterday 0.17. In-hospital cardiac arrest noted Check echocardiogramEKG/troponin this AM Renal: Acute kidney injury Continue Parisi for close monitoring of urine output given her relative hypotension. -- Strict I/Os Follow BMP this a.m. pending FEN/GI: Acute protein calorie malnutritionsevere Perforated hollow viscus Postoperative day number 13 Status post expiratory laparotomy, lysis of adhesions greater than 2.5 hours, small bowel resection with anastomosis, G- tube placement 01/16 Gastroesophageal reflux disease Hyponatremia Hyperkalemia Nothing by mouth Currently on TPN at 60 cc an hour for 4.25/5 with lipids daily G-tube is clean dry and intact Protonix daily for GI prophylaxis A.m. BMP pending GEN surgeon: Rolando --ICU electrolyte protocol has been initiated Heme/ID: Leukocytosis Normocytic anemia Thrombocytosis likely reactive Intra-abdominal Sepsis History DVT Chronic Coumadin 3 mg daily currently off We'll panculture today. CBC this a.m. currently pending. Endocrine: Hyperglycemia of critical illness/TPN Hypothyroidism -- SSI, every 6, medium scale. 8 units insulin past 24 hours At home on 25 Levoxyl daily. Check TSH. Resume IV Levoxyl 12.5 mics grams daily Rheum: History of lupus Col. therapy. Prophylaxis: GI Prophylaxis Protonix DVT Prophylaxis -- SCDs restart lovenox 30 mg daily 24 hours Lines: Right femoral Arterial line 01/16. We'll discontinue today. new left SCV CVL 01/24, continue maintain Parisi Critical Care 35 mins Martín Andrew MD Jan 29, 2017 08:42
[2017-01-29] MEDS ORDERED: DILTIAZEM INJ 125 MG in SODIUM CHLORIDE 0.9% INJ 100 ML IV SCH (09:00)
[2017-01-29] MEDS ORDERED: RESP: ALBUTEROL 2.5 MG/3 ML NEB (PRN) NEB (09:00)
--- NOTE | 2017-01-29 09:02 | RADRPT ---
EXAM DATE/TIME: 01/29/2017 08:49 [facility] COMPARISON: CHEST SINGLE AP, January 27, 2017, 15:56. INDICATIONS : Shortness of breath. MEDICAL HISTORY : Cardiovascular disease. SURGICAL HISTORY : Tracheostomy. ENCOUNTER: Initial ACUITY: 1 day PAIN SCORE: Non-responsive. LOCATION: Bilateral chest FINDINGS: The tracheostomy tube remains in place. There is no pneumothorax. There continues to be an infiltrate in the left lower lung. The right lung is clear and well-aerated. The previously noted mild right lo wer lung infiltrate has resolved. The heart size is stable. The bony structures are stable. CONCLUSION: No significant change in the left lower lung infiltrate. The previously noted mild right lower lung i nfiltrate has resolved. Constantine Zeng MD on January 29, 2017 at 9:00 Board Certified Radiologist. This report was verified electronically.
[2017-01-29] MEDS: RESP: ALBUTEROL 2.5 MG/IPRATROPIUM 0.5 MG NEB (PRN) INH (09:04)
[2017-01-29 09:55] LABS: BLOOD GAS BASE EXCESS 0.7 mmol/L (-2-2); BLOOD GAS HCO3 25 mmol/L (22-26); BLOOD GAS METHEMOGLOBIN 0.9 % (0-2); BLOOD GAS O2 HGB SATURATION 98 % (90-100); BLOOD GAS OXYGEN CONTENT 10.7 Vol % (12.0-20.0); BLOOD GAS PCO2 38 mmHg (38-42); BLOOD GAS PO2 159 mmHg (61-120); BLOOD GAS TOTAL HGB 7.5 G/DL (12.0-16.0); TEMP CORR TO 98.6
[2017-01-29 09:56] LABS: CRITICAL VALUE NO; DRAW SITE ALINE; FIO2 40 %; OXYGEN DEVICE VENTILATOR; STAT NO; VENT SETTINGS SEE COMMENTS
--- NOTE | 2017-01-29 10:01 | RADRPT ---
EXAM DATE/TIME: 01/29/2017 09:05 [facility] COMPARISON: No previous studies available for comparison. INDICATIONS : Bilateral leg swelling. MEDICAL HISTORY : Hypothyroidism. Hypercholesterolemia. Deep venous thrombosis. Dyspnea. SURGICAL HISTORY : Appendectomy.Cholecystectomy. Hemorrhoidectomy.Hysterectomy. Groin stents. Bowel surgery, x3. ENCOUNTER: Initial ACUITY: 3 days PAIN SCORE: Non-responsive LOCATION: Bilateral legs. TECHNIQUE: Venous ultrasound of the left and right leg was performed from the inguinal ligament to the proximal calf. Real-time, color Doppler and spectral tracing, compression and augmentation techniques were us ed. FINDINGS: RIGHT LEG: There is normal compressibility of the deep venous system from the inguinal region to the proximal ca lf. No echogenic clot is seen in the lumen of the common femoral, femoral, popliteal, and posterior tibial veins. There is a normal response of the venous system to proximal and distal augmentation an d respiration. There is an avascular focal fluid and/or cystic collection in the soft tissues of the right groin measuring 4.0 x 1.8 cm. This could be an old focal hematoma/sero ma. Recommend correlation with patient's physical, clinical examination and medical history. LEFT LEG: There is normal compressibility of the deep venous system from the inguinal region to the proximal ca lf. No echogenic clot is seen in the lumen of the common femoral, femoral, popliteal, and posterior tibial veins. There is a normal response of the venous system to proximal and distal augmentation an d respiration. CONCLUSION: 1. No evidence of DVT. 2. Probable old hematoma/seroma in the right groin. Constantine Zeng MD on January 29, 2017 at 9:57 Board Certified Radiologist. This report was verified electronically.
[2017-01-29] MEDS: CHLORHEXIDINE 0.12% (ORAL KIT) 15 ML CUP MT SCH (10:15)
[2017-01-29 10:58] LABS: APTT (PATIENT) 27.7 SEC (24.3-30.1); PROTHROMBIN TIME - PATIENT 10.6 SEC (9.8-11.6)
[2017-01-29 10:59] LABS: BACTERIA, URINE OCC /hpf; BLOOD, URINE MOD (NEG); GLUCOSE,URINE NEG (NEG); KETONE, URINE NEG (NEG); MUCUS URINE FEW /lpf (OCC); NITRITE,URINE NEG (NEG); URINE COLOR YELLOW (YELLW/STRAW)
[2017-01-29 11:00] LABS: COMMENT (UR) CATH-CULTURE IND; CULTURE IF INDICATED CATH CULTURE IND
[2017-01-29 11:08] LABS: BICARBONATE 26.3 MEQ/L (21.0-32.0); MAGNESIUM 2.6 MG/DL (1.5-2.5); POTASSIUM 3.6 MEQ/L (3.5-5.1)
[2017-01-29 11:19] LABS: DIGOXIN 0.9 NG/ML (0.8-2.0); INDIRECT BILIRUBIN 0.4 MG/DL (0.0-0.8); TOTAL BILIRUBIN ADULT 0.9 MG/DL (0.2-1.0)
[2017-01-29] MEDS ORDERED: DEXMEDETOMIDINE INJ 200 MCG in SODIUM CHLORIDE 0.9% INJ 50 ML IV SCH (11:30)
[2017-01-29] MEDS ORDERED: D5W IV SCH (11:30)
[2017-01-29] MEDS ORDERED: AMIODARONE IV SCH (11:30)
[2017-01-29 11:37] LABS: CKMB 5.1 NG/ML (0.5-3.6)
[2017-01-29] MEDS ORDERED: RESP: ALBUTEROL 2.5 MG/IPRATROPIUM 0.5 MG NEB (SCH) NEB (12:00)
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
[2017-01-29] MEDS: methylPREDNISolone SOD SUCC 40 MG/1 ML VIAL IV PUSH SCH ×2 (14:00→22:41)
[2017-01-29] MEDS ORDERED: PIPERACIL-TAZO 4.5 GM PREMIX 100 ML IV SCH (14:00)
[2017-01-29] MEDS ORDERED: VANCOMYCIN INJ 1,000 MG in SODIUM CHLOR 0.9% 250 ML INJ 250 ML IV ONE (14:00)
[2017-01-29 14:26] LABS: AUTOMATED NEUTROPHIL # 22.9 TH/MM3 (1.8-7.7); BASOPHIL # 0.1 TH/MM3 (0-0.2); BASOPHIL % 0.2 % (0.0-2.0); EOSINOPHIL % 0.1 % (0.0-4.0); HEMATOCRIT 22.9 % (35.0-46.0); LYMPH % 4.8 % (9.0-44.0); LYMPHOCYTE # 1.3 TH/MM3 (1.0-4.8); MEAN CELL VOLUME 85.5 FL (80.0-100.0); MEAN CORPUSCULAR HEMOGLOBIN 27.6 PG (27.0-34.0); MEAN CORPUSCULAR HGB CONC 32.2 % (32.0-36.0); MONO % 8.9 % (0.0-8.0); PLATELET COUNT 643 TH/MM3 (150-450); RED BLOOD COUNT 2.67 MIL/MM3 (4.00-5.30); RED CELL DISTRIBUTION WIDTH 14.7 % (11.6-17.2); WHITE BLOOD COUNT 26.5 TH/MM3 (4.0-11.0)
[2017-01-29 14:28] LABS: HEMO FLAGS AUTO DIFF
[2017-01-29] MEDS ORDERED: LORazepam 2 MG/ML VIAL IVS PRN (14:45)
[2017-01-29] MEDS ORDERED: FUROSEMIDE 20 MG/2 ML VIAL IV PRN (14:45)
[2017-01-29] MEDS ORDERED: BISACODYL 10 MG SUPP RECTAL PRN (14:45)
[2017-01-29] MEDS ORDERED: ACETAMINOPHEN 650 MG SUPP RECTAL PRN (14:45)
[2017-01-29] MEDS ORDERED: LORazepam 2 MG/ML VIAL IV PRN ×2 (14:45)
[2017-01-29] MEDS ORDERED: HYOSCYAMINE 0.5 MG/ML AMP IV ONE (15:00)
[2017-01-29] MEDS ORDERED: LORazepam 2 MG/ML VIAL IV ONE ×2 (15:00→15:30)
[2017-01-29] MEDS ORDERED: HYDROmorphone HCL PF 2 MG/ML VIAL IV ONE (15:00)
[2017-01-29 15:19] LABS: BANDS 5 % (0-6); MYELOCYTES 1 % (0-0); NEUTROPHIL # MANUAL DIFF 21.7 TH/MM3 (1.8-7.7); POLYS (SEG NEUTROPHILS) 76 % (16-70); WBC DIFF SAMPLE 100
[2017-01-29 15:20] LABS: PLATELET ESTIMATE SMEAR HIGH (NORMAL); PLATELET MORPHOLOGY NORMAL (NORMAL); SCAN/DIFF FINAL DIFF MANUAL
[2017-01-29] MEDS ORDERED: HYDROmorphone HCL PF 1 MG/ML VIAL IV ONE (15:30)
--- NOTE | 2017-01-29 15:54 | HHI.PR ---
Subjective Subjective Notes On MV via trach Restless Objective Vitals/I&O Vital Signs Date Time Temp Pulse Resp B/P Pulse Ox O2 Delivery O2 Flow Rate FiO2 01/29/17 12:00 114 01/29/17 12:00 98 35 01/29/17 12:00 98.9 27 103/61 01/25/17 12:15 Non-Rebreather 12 Labs Laboratory Tests Test 01/28/17 01/28/17 01/29/17 01/29/17 16:59 21:45 01:06 09:45 Blood Gas Puncture Site ART LINE ART LINE ART LINE [place] Blood Gas Patient Temperature 98.6 98.6 98.6 98.6 Blood Gas HCO3 24 22 23 25 Blood Gas Base Excess 0.5 -1.2 -0.6 0.7 Blood Gas Oxygen Saturation 98 97 97 98 Arterial Blood pH 7.49 7.45 7.48 7.43 Arterial Blood Partial 32 32 31 38 Pressure CO2 Arterial Blood Partial 295 172 157 159 Pressure O2 Arterial Blood Oxygen Content 10.6 13.4 14.0 10.7 Arterial Blood 1.2 0.9 0.9 1.0 Carboxyhemoglobin Arterial Blood Methemoglobin 1.3 1.1 1.1 0.9 Blood Gas Hemoglobin 7.2 9.5 10.0 7.5 Oxygen Delivery Device VENTILATOR VENTILATOR VENT VENTILATOR Blood Gas Ventilator Setting PC/AC PC/AC SEE COMMENTS SEE COMMENTS Blood Gas Inspired Oxygen 70 45 40 40 Test 01/29/17 01/29/17 10:16 10:25 White Blood Count 26.5 Red Blood Count 2.67 Hemoglobin 7.4 Hematocrit 22.9 Mean Corpuscular Volume 85.5 Mean Corpuscular Hemoglobin 27.6 Mean Corpuscular Hemoglobin 32.2 Concent Red Cell Distribution Width 14.7 Platelet Count 643 Mean Platelet Volume 9.3 Neutrophils (%) (Auto) 86.0 Lymphocytes (%) (Auto) 4.8 Monocytes (%) (Auto) 8.9 Eosinophils (%) (Auto) 0.1 Basophils (%) (Auto) 0.2 Neutrophils # (Auto) 22.9 Lymphocytes # (Auto) 1.3 Monocytes # (Auto) 2.4 Eosinophils # (Auto) 0.0 Basophils # (Auto) 0.1 CBC Comment AUTO DIFF Differential Total Cells 100 Counted Neutrophils % (Manual) 76 Band Neutrophils % 5 Lymphocytes % 7 Monocytes % 11 Neutrophils # (Manual) 21.7 Myelocytes 1 Differential Comment FINAL DIFF MANUAL Platelet Estimate HIGH Platelet Morphology Comment NORMAL Red Cell Morphology Comment NORMAL Prothrombin Time 10.6 Prothromb Time International 1.0 Ratio Activated Partial 27.7 Thromboplast Time Fibrinogen 715 Sodium Level 131 Potassium Level 3.6 Chloride Level 94 Carbon Dioxide Level 26.3 Anion Gap 11 Blood Urea Nitrogen 85 Creatinine 1.46 Estimat Glomerular Filtration 35 Rate Random Glucose 181 Lactic Acid Level 2.5 Calcium Level 7.9 Phosphorus Level 5.1 Magnesium Level 2.6 Total Bilirubin 0.9 Direct Bilirubin 0.5 Indirect Bilirubin 0.4 Aspartate Amino Transf 46 (AST/SGOT) Alanine Aminotransferase 32 (ALT/SGPT) Alkaline Phosphatase 73 Ammonia 17 Total Creatine Kinase 377 Creatine Kinase MB 5.1 Creatine Kinase MB % 1.4 Troponin I 0.18 Total Protein 5.6 Albumin 1.4 Amylase Level 36 Lipase 112 Thyroid Stimulating Hormone 2.560 3rd Gen Digoxin Level 0.9 Urine Color YELLOW Urine Turbidity HAZY Urine pH 5.0 Urine Specific [place] 1.013 Urine Protein 30 Urine Glucose (UA) NEG Urine Ketones NEG Urine Occult Blood MOD Urine Nitrite NEG Urine Bilirubin NEG Urine Urobilinogen LESS THAN 2.0 Urine Leukocyte Esterase LARGE Urine RBC 2 Urine WBC 43 Urine WBC Clumps MANY Urine Amorphous Sediment RARE Urine Bacteria OCC Urine Mucus FEW Microscopic Urinalysis Comment CATH-CULTURE IND Urine Random Creatinine 19.9 Urine Random Sodium 18 Date/Time Procedure Status Source Growth 01/29/17 11:26 Aerobic Blood Culture Received Blood Peripheral Pending 01/29/17 11:26 Anaerobic Blood Culture Received Blood Peripheral Pending 01/29/17 10:25 Urine Culture Received Urine Catheterized Urine Pending 01/29/17 10:25 Gram Stain - Final Resulted Sputum Expectorated Sputum 01/29/17 10:25 Sputum Culture Resulted Sputum Expectorated Sputum Pending Cardiovascular: Regular Lungs: Clear Abdomen: Non-tender, Other (midline incision with dali; G tube to gravity ) Extremities: Other (Generalized edema ) Narrative Exam G tube to gravity A/P Assessment and Plan 81 year old female s/p ex lap; ANDI; G tube placement; Small bowel resection -[facility] following---s/p resp arrest yesterday --on MV via trach -Dressing change: [place] dressing to midline incision; change daily and PRN -Palliative Care following to help family establish goals of treatment Kimberli Jarrett. [facility] Jan 29, 2017 15:54
[2017-01-29] MEDS: LORazepam 2 MG/ML VIAL IV SCH ×2 (18:00→21:18)
[2017-01-29] MEDS: fentaNYL DRIP 250 ML IV SCH (18:27)
--- NOTE | 2017-01-29 18:45 | ECHRPT ---
Indication: ef chf CONCLUSIONS The left ventricular systolic function is normal with an estimated ejection fraction in the range of 55-60%. There is a small pericardial effusion present. No hemodynamically significant echocardiographic features were observed (no pre-tamponade physiology). BP: 132 / 41 HR: 101 Rhythm: Other MEASUREMENTS (Male / Female) Normal Values Technical Quality:Technically difficult study 2D ECHO LV Diastolic Diameter PLAX 3.6 cm 4.2 - 5.9 / 3.9 - 5.3 cm LV Systolic Diameter PLAX 2.6 cm IVS Diastolic Thickness 1.0 cm 0.6 - 1.0 / 0.6 - 0.9 cm LVPW Diastolic Thickness 1.1 cm 0.6 - 1.0 / 0.6 - 0.9 cm LV Relative Wall Thickness 0.6 RV Internal Dim ED PLAX 1.9 cm DOPPLER AV Peak Velocity 236.0 cm/s AV Peak Gradient 22.3 mmHg LVOT Peak Velocity 114.0 cm/s LVOT Peak Gradient 5.2 mmHg TR Peak Velocity 259.0 cm/s TR Peak Gradient 26.8 mmHg FINDINGS LEFT VENTRICLE Normal left ventricular size and wall thickness. The left ventricular systolic function is normal with an estimated ejection fraction in the range of 55-60%. RIGHT VENTRICLE The right ventricular size is normal. LEFT ATRIUM The left atrial size is normal. RIGHT ATRIUM The right atrial size is normal. ATRIAL SEPTUM The interatrial septum not well visualized. AORTA The aortic root and proximal ascending aorta are not well visualized. MITRAL VALVE Mitral annular calcification is present. Structurally normal mitral valve. No mitral valve stenosis. Trace mitral valve regurgitation. AORTIC VALVE Aortic valve sclerosis is present. Trileaflet aortic valve. No aortic valve regurgitation. No aortic valve stenosis. TRICUSPID VALVE Structurally normal tricuspid valve. No tricuspid valve stenosis or regurgitation. PULMONARY VALVE The pulmonary valve is not well visualized. VESSELS The inferior vena cava is normal in size. PERICARDIUM There is a small pericardial effusion present. No hemodynamically significant echocardiographic features were observed (no pre-tamponade physiology). Haseeb Deshpande DO (Electronically Signed) Final Date:29 January 2017 18:44
[2017-01-29] MEDS ORDERED: RESP: BUDESONIDE 0.5 MG/2 ML NEB NEB SCH (20:00)
[2017-01-29] MEDS ORDERED: INSULIN DETEMIR 100 UNITS/ML VIAL SQ SCH (21:00)
[2017-01-29] MEDS: HYOSCYAMINE 0.5 MG/ML AMP IV PRN (22:00)
[2017-01-30] VITALS (15 sets, daily range): BP systolic 36–91; BP diastolic 24–28; PULSE 82–102; RESP 25–32; TEMP 98–99.4; O2SAT 57–74
[2017-01-30] MEDS: LORazepam 2 MG/ML VIAL IV SCH ×6 (02:04→22:11)
[2017-01-30] MEDS: methylPREDNISolone SOD SUCC 40 MG/1 ML VIAL IV PUSH SCH ×3 (05:16→22:12)
[2017-01-30] MEDS: fentaNYL DRIP 250 ML IV SCH ×2 (05:18→14:42)
[2017-01-30] MEDS ORDERED: LEVOTHYROXINE SODIUM 100 MCG VIAL IV PUSH SCH (06:00)
[2017-01-30] MEDS: MORPHINE SULFATE 8 MG/ML INJ IV PUSH PRN (06:13)
--- NOTE | 2017-01-30 10:53 | HHI.CCPN ---
Subjective Remarks/Hospital Course Hospital Course: 81-year-old female presents with abdominal pain that began about 6 hours duration. The patient states that she has a history of multiple bowel obstructions; prior abdominal surgeries also include hysterectomy, oophorectomy , lysis of adhesions, cholecystectomy, appendectomy, fundoplication. CT abdomen reveals hollow viscous perforation with both retro and intraperitoneal air. Noteworthy is dilated common biliary duct at 1.5 cm s/p cholecystectomy. Clearly an acute abdomen requiring resuscitation, correction of coumadin coagulopathy, and operative repair. A stent is in place in the proximal SMA. 01/16: intubated, sedated. leukopenic this morning. mildly hypotensive, receiving ivf bolus. lactate cleared. 01/17: remains intubated. remains marginally hypotensive overnight. however, clinically improving. awake, alert, following commands. uop remains adequate. lactate cleared. hgb stable. more hypoglycemic today and sodium rising. 01/18: seen and examined around 07:30am, delayed note entry. extubated yesterday. initially doing well, now this morning more hypoxic requiring 50% venti mask. cxr with evidence of pulmonary edema. s/p large volume pulmonary edema. 01/19: Worsening oxygenation requiring intubation and mechanical ventilation. Gas exchange acceptable on vent. Perfusion and hydration is acceptable. 01/20: Peripheral perfusion much improved after intubation and ventilator. Renal function acceptable. Too weak to attempt extubation today. 01/21: Fingers warm, pin. Toes remain dusky. TPN tolerated. Large A-aO2 gradient persists unfortunately. 01/22: Diffuse infiltrates persist on CXR. Poor diffusion gradient continues. 01/23: CXR with persistent interstitial edema, but improving. G-tube draining normally, no BM yet. Continue diuresis. Finally looks OK on SBTs. 01/24: Improved gas exchange. Will try to extubate. 01/25: Acceptable oxygenation on FiO2 35%. Satisfactory SBT. Will extubate -> failed due to upper airway obstruction/stridor. This is second time for same reason, will need tracheostomy. 01/26: Plan tracheostomy today after second failure to tolerate extubation. I attempted to call patient's son in law, an ENT physician, but he is on vacation camping in [place] and unavailable. wants to go ahead with procedure. 01/27: Persistent SVT. Digoxin started 01/26, add lopressor today iv scheduled. Breathing comfortably via new trach. 01/28: Respiratory failure with pH 7.04, PCO2 115 due to severe bronchospasm. Progressed to full cardiac arrest. I had a lengthy talk with her daughter (in [facility]) and expressed my concern that she was terminally ill at this point after her cardiac arrest earlier today. All questions were answered and she requested a Palliative Care consult. 01/29: Events yesterday noted. Currently awake on the ventilator on a fentanyl drip at 150 an hour. Patient currently DNR. Tolerating TPN. A.m. labs all pending. Tachycardic on epinephrine drip. We'll switch back to Tony-Synephrine. Subjective: 01/30: Withdrawal care yesterday. Extubated. Currently on Ativan and morphine for comfort measures. Objective Vital Signs Date Time Temp Pulse Resp B/P Pulse Ox O2 Delivery O2 Flow Rate FiO2 01/30/17 06:00 101 01/30/17 04:00 99.3 32 91/27 57 01/29/17 12:00 35 Intake and Output 01/29/17 01/29/17 01/30/17 08:00 16:00 00:00 Intake Total 863 ml 1396 ml 149 ml Output Total 665 ml 1375 ml 275 ml Balance 198 ml 21 ml -126 ml Result Diagram: 01/29/17 1016 01/29/17 1016 Imaging Last 72 hours Impressions Chest X-Ray 01/27/17 0000 Signed Impressions: Service Date/Time: Friday, January 27, 2017 15:56 - CONCLUSION: There continues to be an infiltrate in the left lower lung. No significant changes compared to the prior study. There is a new mild infiltrate in the right lung base. Constantine Zeng MD Objective Remarks GENERAL: 81-year-old cachectic female, critically ill currently resting in bed SKIN: Warm and dry. No rash HEAD: Atraumatic. Normocephalic. EYES: Pupils equal and round about 3 mm bilaterally and reactive. No scleral icterus. No injection or drainage. ENT: No nasal bleeding or discharge. Mucous membranes pink and moist. NECK: Trachea midline. No JVD. CARDIOVASCULAR: Tachycardic, IR. S1, S2 no S4 without murmur RESPIRATORY: Diminished breath sounds throughout all lung munoz anteriorly and posteriorly. Positive end expiratory wheezes. GASTROINTESTINAL: Abdomen soft, non-tender, nondistended. Left-sided G-tube is clean dry and intact without drainage or erythema MUSCULOSKELETAL: Extremities without significant peripheral edema. No obvious deformities. Right femoral arterial line is clean dry and intact. Left subclavian CVL is clean dry and intact. NEUROLOGICAL: Awake and alert. No obvious cranial nerve deficits. Motor grossly within normal limits. Five out of 5 muscle strength in the arms and legs. Normal speech. A/P Assessment and Plan Neuro/Psych: Acute pain secondary to surgical procedure Anxiety disorder NOS Chronic benzodiazepine use Morphine 6 mg IV every 30 minutes when necessary pain Currently on Ativan 2 mg every 15 minutes when necessary anxiety into mill grams every 4 hours scheduled for anxiety Respiratory: Ventilator dependent respiratory failure Secondary to hypoxic and hypercarbic respiratory failure History of recurrent Pulmonary Edema Removed from ventilator yesterday. Oxygen for comfort As needed albuterol for dyspnea Levsin as needed for secretions --Tracheostomy 01/26 Cardiovascular: Atrial flutter with RVR In Hospital cardiac arrest Cardiac arrest due to hypercapneic failure from severe bronchospasm Lasix 20 mg IV every 6 hours. Pulmonary edema Renal: Acute kidney injury Currently not following laboratories FEN/GI: Acute protein calorie malnutritionsevere Perforated hollow viscus Postoperative day number 13 Status post expiratory laparotomy, lysis of adhesions greater than 2.5 hours, small bowel resection with anastomosis, G- tube placement 01/16 Gastroesophageal reflux disease Hyponatremia Hyperkalemia Diet as tolerated Heme/ID: Leukocytosis Normocytic anemia Thrombocytosis likely reactive Intra-abdominal Sepsis History DVT Chronic Coumadin 3 mg daily currently off Currently not following laboratories Endocrine: Hyperglycemia of critical illness/TPN Hypothyroidism Currently not following laboratories Rheum: History of lupus Col. therapy. Prophylaxis: GI Prophylaxis Not indicated DVT Prophylaxis None currently Lines: Right femoral Arterial line 01/16- 01/29 new left SCV CVL 01/24, continue maintain Parisi Level II Martín Andrew MD Jan 30, 2017 10:53
[2017-01-30] MEDS: HYOSCYAMINE 0.5 MG/ML AMP IV PRN (16:53)
[2017-01-31] VITALS (9 sets, daily range): BP systolic 44–93; BP diastolic 24–34; PULSE 76–100; RESP 24–35; TEMP 97.6–99.1; O2SAT 53–67
[2017-01-31] MEDS: LORazepam 2 MG/ML VIAL IV SCH ×4 (02:15→13:00)
[2017-01-31] MEDS: fentaNYL DRIP 250 ML IV SCH ×2 (03:12→12:17)
[2017-01-31] MEDS: MORPHINE SULFATE 8 MG/ML INJ IV PUSH PRN ×2 (03:50→15:10)
[2017-01-31] MEDS: methylPREDNISolone SOD SUCC 40 MG/1 ML VIAL IV PUSH SCH ×2 (05:28→13:00)
[2017-01-31] MEDS: HYOSCYAMINE 0.5 MG/ML AMP IV PRN (05:41)
--- NOTE | 2017-01-31 09:05 | HHI.CCPN ---
Subjective Remarks/Hospital Course Hospital Course: 81-year-old female presents with abdominal pain that began about 6 hours duration. The patient states that she has a history of multiple bowel obstructions; prior abdominal surgeries also include hysterectomy, oophorectomy , lysis of adhesions, cholecystectomy, appendectomy, fundoplication. CT abdomen reveals hollow viscous perforation with both retro and intraperitoneal air. Noteworthy is dilated common biliary duct at 1.5 cm s/p cholecystectomy. Clearly an acute abdomen requiring resuscitation, correction of coumadin coagulopathy, and operative repair. A stent is in place in the proximal SMA. 01/16: intubated, sedated. leukopenic this morning. mildly hypotensive, receiving ivf bolus. lactate cleared. 01/17: remains intubated. remains marginally hypotensive overnight. however, clinically improving. awake, alert, following commands. uop remains adequate. lactate cleared. hgb stable. more hypoglycemic today and sodium rising. 01/18: seen and examined around 07:30am, delayed note entry. extubated yesterday. initially doing well, now this morning more hypoxic requiring 50% venti mask. cxr with evidence of pulmonary edema. s/p large volume pulmonary edema. 01/19: Worsening oxygenation requiring intubation and mechanical ventilation. Gas exchange acceptable on vent. Perfusion and hydration is acceptable. 01/20: Peripheral perfusion much improved after intubation and ventilator. Renal function acceptable. Too weak to attempt extubation today. 01/21: Fingers warm, pin. Toes remain dusky. TPN tolerated. Large A-aO2 gradient persists unfortunately. 01/22: Diffuse infiltrates persist on CXR. Poor diffusion gradient continues. 01/23: CXR with persistent interstitial edema, but improving. G-tube draining normally, no BM yet. Continue diuresis. Finally looks OK on SBTs. 01/24: Improved gas exchange. Will try to extubate. 01/25: Acceptable oxygenation on FiO2 35%. Satisfactory SBT. Will extubate -> failed due to upper airway obstruction/stridor. This is second time for same reason, will need tracheostomy. 01/26: Plan tracheostomy today after second failure to tolerate extubation. I attempted to call patient's son in law, an ENT physician, but he is on vacation camping in [place] and unavailable. wants to go ahead with procedure. 01/27: Persistent SVT. Digoxin started 01/26, add lopressor today iv scheduled. Breathing comfortably via new trach. 01/28: Respiratory failure with pH 7.04, PCO2 115 due to severe bronchospasm. Progressed to full cardiac arrest. I had a lengthy talk with her daughter (in [facility]) and expressed my concern that she was terminally ill at this point after her cardiac arrest earlier today. All questions were answered and she requested a Palliative Care consult. 01/29: Events yesterday noted. Currently awake on the ventilator on a fentanyl drip at 150 an hour. Patient currently DNR. Tolerating TPN. A.m. labs all pending. Tachycardic on epinephrine drip. We'll switch back to Tony-Synephrine. 01/30: Withdrawal care yesterday. Extubated. Currently on Ativan and morphine for comfort measures. Subjective: 01/31: More awake and alert today. Saturations improved. Hospice consult placed. Objective Vital Signs Date Time Temp Pulse Resp B/P Pulse Ox O2 Delivery O2 Flow Rate FiO2 01/31/17 06:00 97 01/31/17 04:00 97.8 35 93/28 60 01/29/17 12:00 35 Intake and Output 01/30/17 01/30/17 01/31/17 08:00 16:00 00:00 Intake Total 183 ml 227 ml 216 ml Output Total 500 ml 250 ml 325 ml Balance -317 ml -23 ml -109 ml Result Diagram: 01/29/17 1016 01/29/17 1016 Imaging Last 72 hours Impressions Chest X-Ray 01/27/17 0000 Signed Impressions: Service Date/Time: Friday, January 27, 2017 15:56 - CONCLUSION: There continues to be an infiltrate in the left lower lung. No significant changes compared to the prior study. There is a new mild infiltrate in the right lung base. Constantine Zeng MD Objective Remarks GENERAL: 81-year-old cachectic female, critically ill currently resting in bed SKIN: Warm and dry. No rash HEAD: Atraumatic. Normocephalic. EYES: Pupils equal and round about 3 mm bilaterally and reactive. No scleral icterus. No injection or drainage. ENT: No nasal bleeding or discharge. Mucous membranes pink and moist. NECK: Trachea midline. No JVD. CARDIOVASCULAR: Tachycardic, IR. S1, S2 no S4 without murmur RESPIRATORY: Diminished breath sounds throughout all lung munoz anteriorly and posteriorly. Positive end expiratory wheezes. GASTROINTESTINAL: Abdomen soft, non-tender, nondistended. Left-sided G-tube is clean dry and intact without drainage or erythema MUSCULOSKELETAL: Extremities without significant peripheral edema. No obvious deformities. Right femoral arterial line is clean dry and intact. Left subclavian CVL is clean dry and intact. NEUROLOGICAL: Awake and alert. No obvious cranial nerve deficits. Motor grossly within normal limits. Five out of 5 muscle strength in the arms and legs. Normal speech. A/P Assessment and Plan Neuro/Psych: Acute pain secondary to surgical procedure Anxiety disorder NOS Chronic benzodiazepine use Morphine 6 mg IV every 30 minutes when necessary pain Currently on Ativan 2 mg every 15 minutes when necessary anxiety into mill grams every 4 hours scheduled for anxiety Respiratory: Ventilator dependent respiratory failure Secondary to hypoxic and hypercarbic respiratory failure History of recurrent Pulmonary Edema Removed from ventilator yesterday. Oxygen for comfort As needed albuterol for dyspnea Levsin as needed for secretions --Tracheostomy 01/26 Cardiovascular: Atrial flutter with RVR In Hospital cardiac arrest Cardiac arrest due to hypercapneic failure from severe bronchospasm Lasix 20 mg IV every 6 hours. Pulmonary edema Renal: Acute kidney injury Currently not following laboratories FEN/GI: Acute protein calorie malnutritionsevere Perforated hollow viscus Postoperative day number 13 Status post expiratory laparotomy, lysis of adhesions greater than 2.5 hours, small bowel resection with anastomosis, G- tube placement 01/16 Gastroesophageal reflux disease Hyponatremia Hyperkalemia Diet as tolerated Heme/ID: Leukocytosis Normocytic anemia Thrombocytosis likely reactive Intra-abdominal Sepsis History DVT Chronic Coumadin 3 mg daily currently off Currently not following laboratories Endocrine: Hyperglycemia of critical illness/TPN Hypothyroidism Currently not following laboratories Rheum: History of lupus Col. therapy. Prophylaxis: GI Prophylaxis Not indicated DVT Prophylaxis None currently Lines: Right femoral Arterial line 01/16- 01/29 new left SCV CVL 01/24, continue maintain Parisi for comfort if needed Level I Martín Andrew MD Jan 31, 2017 09:05
--- NOTE | 2017-01-31 10:45 | HHI.DS ---
Discharge Summary Admission Date Jan 15, 2017 at 19:47 Discharge Date: Jan 31, 2017 Admitting Diagnosis perforated viscus, pneumoperitoneum, leukocytosis with bandemia (1) Acute hypoxemic respiratory failure ICD Code: J96.01 Diagnosis: Principal (2) Perforated viscus ICD Code: R19.8 Diagnosis: Principal (3) Cardiac arrest ICD Code: I46.9 Diagnosis: Principal (4) Pneumoperitoneum ICD Code: K66.8 Diagnosis: Principal (5) Chronic back pain ICD Code: M54.9 Diagnosis: Principal (6) Hypothyroid ICD Code: E03.9 Diagnosis: Principal (7) Abdominal pain ICD Code: R10.9 Diagnosis: Principal Procedures Postoperative day number 14 Status post expiratory laparotomy, lysis of adhesions greater than 2.5 hours, small bowel resection with anastomosis, G- tube placement 01/16 Brief History 81-year-old female presents with abdominal pain that began about 6 hours duration. The patient states that she has a history of multiple bowel obstructions; prior abdominal surgeries also include hysterectomy, oophorectomy , lysis of adhesions, cholecystectomy, appendectomy, fundoplication. CT abdomen reveals hollow viscous perforation with both retro and intraperitoneal air. Noteworthy is dilated common biliary duct at 1.5 cm s/p cholecystectomy. Clearly an acute abdomen requiring resuscitation, correction of coumadin coagulopathy, and operative repair. A stent is in place in the proximal SMA. CBC/BMP: 01/29/17 1016 01/29/17 1016 Significant Findings Laboratory Tests Test 01/28/17 01/28/17 01/28/17 01/28/17 11:44 12:25 15:50 16:59 Arterial Blood pH 7.22 7.49 (7.380-7.420) (7.380-7.420) Arterial Blood Partial 63 mmHg (38-42) 32 mmHg (38-42) Pressure CO2 Arterial Blood Partial 229 mmHg 295 mmHg Pressure O2 (61-120) (61-120) Arterial Blood Oxygen Content 11.6 Vol % 10.6 Vol % (12.0-20.0) (12.0-20.0) Blood Gas Hemoglobin 8.1 G/DL 7.2 G/DL (12.0-16.0) (12.0-16.0) Sodium Level 129 MEQ/L (136-145) Potassium Level 5.2 MEQ/L (3.5-5.1) Chloride Level 92 MEQ/L (98-107) Blood Urea Nitrogen 81 MG/DL (7-18) Creatinine 1.79 MG/DL (0.50-1.00) Estimat Glomerular Filtration 27 ML/MIN (>89) Rate Random Glucose 254 MG/DL (74-106) Calcium Level 7.9 MG/DL (8.5-10.1) Troponin I 0.17 NG/ML (0.02-0.05) Test 01/28/17 01/29/17 01/29/17 01/29/17 21:45 01:06 09:45 10:16 Arterial Blood pH 7.45 7.48 7.43 (7.380-7.420) (7.380-7.420) (7.380-7.420) Arterial Blood Partial 32 mmHg (38-42) 31 mmHg (38-42) Pressure CO2 Arterial Blood Partial 172 mmHg 157 mmHg 159 mmHg Pressure O2 (61-120) (61-120) (61-120) Blood Gas Hemoglobin 9.5 G/DL 10.0 G/DL 7.5 G/DL (12.0-16.0) (12.0-16.0) (12.0-16.0) Arterial Blood Oxygen Content 10.7 Vol % (12.0-20.0) White Blood Count 26.5 TH/MM3 (4.0-11.0) Red Blood Count 2.67 MIL/MM3 (4.00-5.30) Hemoglobin 7.4 GM/DL (11.6-15.3) Hematocrit 22.9 % (35.0-46.0) Platelet Count 643 TH/MM3 (150-450) Neutrophils (%) (Auto) 86.0 % (16.0-70.0) Lymphocytes (%) (Auto) 4.8 % (9.0-44.0) Monocytes (%) (Auto) 8.9 % (0.0-8.0) Neutrophils # (Auto) 22.9 TH/MM3 (1.8-7.7) Monocytes # (Auto) 2.4 TH/MM3 (0-0.9) Neutrophils % (Manual) 76 % (16-70) Lymphocytes % 7 % (9-44) Monocytes % 11 % (0-8) Neutrophils # (Manual) 21.7 TH/MM3 (1.8-7.7) Myelocytes 1 % (0-0) Platelet Estimate HIGH (NORMAL) Fibrinogen 715 mg/dL (227-377) Sodium Level 131 MEQ/L (136-145) Chloride Level 94 MEQ/L (98-107) Blood Urea Nitrogen 85 MG/DL (7-18) Creatinine 1.46 MG/DL (0.50-1.00) Estimat Glomerular Filtration 35 ML/MIN (>89) Rate Random Glucose 181 MG/DL (74-106) Lactic Acid Level 2.5 mmol/L (0.4-2.0) Calcium Level 7.9 MG/DL (8.5-10.1) Phosphorus Level 5.1 MG/DL (2.5-4.9) Magnesium Level 2.6 MG/DL (1.5-2.5) Direct Bilirubin 0.5 MG/DL (0.0-0.2) Aspartate Amino Transf 46 U/L (15-37) (AST/SGOT) Total Creatine Kinase 377 U/L (26-192) Creatine Kinase MB 5.1 NG/ML (0.5-3.6) Troponin I 0.18 NG/ML (0.02-0.05) Total Protein 5.6 GM/DL (6.4-8.2) Albumin 1.4 GM/DL (3.4-5.0) Test 01/29/17 10:25 Urine Turbidity HAZY (CLEAR) Urine Protein 30 mg/dL (NEG-TRACE) Urine Occult Blood MOD (NEG) Urine Leukocyte Esterase LARGE (NEG) Urine WBC 43 /hpf (0-5) Urine WBC Clumps MANY (NONE) Urine Bacteria OCC /hpf (NONE) Urine Mucus FEW /lpf (OCC) Imaging Last 72 hours Impressions Lower Extremity Ultrasound 01/29/17 0000 Signed Impressions: Service Date/Time: Sunday, January 29, 2017 09:05 - CONCLUSION: 1. No evidence of DVT. 2. Probable old hematoma/seroma in the right groin. Constantine Zeng MD Chest X-Ray 01/29/17 0000 Signed Impressions: Service Date/Time: Sunday, January 29, 2017 08:49 - CONCLUSION: No significant change in the left lower lung infiltrate. The previously noted mild right lower lung infiltrate has resolved. Constantine Zeng MD PE at Discharge GENERAL: 81-year-old cachectic female, critically ill currently resting in bed SKIN: Warm and dry. No rash HEAD: Atraumatic. Normocephalic. EYES: Pupils equal and round about 3 mm bilaterally and reactive. No scleral icterus. No injection or drainage. ENT: No nasal bleeding or discharge. Mucous membranes pink and moist. NECK: Trachea midline. No JVD. CARDIOVASCULAR: Tachycardic, IR. S1, S2 no S4 without murmur RESPIRATORY: Diminished breath sounds throughout all lung munoz anteriorly and posteriorly. Positive end expiratory wheezes. GASTROINTESTINAL: Abdomen soft, non-tender, nondistended. Left-sided G-tube is clean dry and intact without drainage or erythema MUSCULOSKELETAL: Extremities without significant peripheral edema. No obvious deformities. NEUROLOGICAL: Arousable. Status post tracheostomy nonverbal. Moving upper extremity spontaneously. Transfer Summary Acute pain secondary to surgical procedure Anxiety disorder NOS Chronic benzodiazepine use Morphine 6 mg IV every 30 minutes when necessary pain Currently on Ativan 2 mg every 15 minutes when necessary anxiety into mill grams every 4 hours scheduled for anxiety Respiratory: Ventilator dependent respiratory failure Secondary to hypoxic and hypercarbic respiratory failure History of recurrent Pulmonary Edema Removed from ventilator yesterday. Oxygen for comfort As needed albuterol for dyspnea Levsin as needed for secretions --Tracheostomy 01/26 Cardiovascular: Atrial flutter with RVR In Hospital cardiac arrest Cardiac arrest due to hypercapneic failure from severe bronchospasm Lasix 20 mg IV every 6 hours. Pulmonary edema Renal: Acute kidney injury Currently not following laboratories FEN/GI: Acute protein calorie malnutritionsevere Perforated hollow viscus Postoperative day number 13 Status post expiratory laparotomy, lysis of adhesions greater than 2.5 hours, small bowel resection with anastomosis, G- tube placement 01/16 Gastroesophageal reflux disease Hyponatremia Hyperkalemia Diet as tolerated Heme/ID: Leukocytosis Normocytic anemia Thrombocytosis likely reactive Intra-abdominal Sepsis History DVT Chronic Coumadin 3 mg daily currently off Currently not following laboratories Endocrine: Hyperglycemia of critical illness/TPN Hypothyroidism Currently not following laboratories Rheum: History of lupus Col. therapy. Prophylaxis: GI Prophylaxis Not indicated DVT Prophylaxis None currently Lines: Right femoral Arterial line 01/16- 01/29 new left SCV CVL 01/24, continue maintain Parisi for comfort if needed Hospital Course Hospital Course: 81-year-old female presents with abdominal pain that began about 6 hours duration. The patient states that she has a history of multiple bowel obstructions; prior abdominal surgeries also include hysterectomy, oophorectomy , lysis of adhesions, cholecystectomy, appendectomy, fundoplication. CT abdomen reveals hollow viscous perforation with both retro and intraperitoneal air. Noteworthy is dilated common biliary duct at 1.5 cm s/p cholecystectomy. Clearly an acute abdomen requiring resuscitation, correction of coumadin coagulopathy, and operative repair. A stent is in place in the proximal SMA. 01/16: intubated, sedated. leukopenic this morning. mildly hypotensive, receiving ivf bolus. lactate cleared. 01/17: remains intubated. remains marginally hypotensive overnight. however, clinically improving. awake, alert, following commands. uop remains adequate. lactate cleared. hgb stable. more hypoglycemic today and sodium rising. 01/18: seen and examined around 07:30am, delayed note entry. extubated yesterday. initially doing well, now this morning more hypoxic requiring 50% venti mask. cxr with evidence of pulmonary edema. s/p large volume pulmonary edema. 01/19: Worsening oxygenation requiring intubation and mechanical ventilation. Gas exchange acceptable on vent. Perfusion and hydration is acceptable. 01/20: Peripheral perfusion much improved after intubation and ventilator. Renal function acceptable. Too weak to attempt extubation today. 01/21: Fingers warm, pin. Toes remain dusky. TPN tolerated. Large A-aO2 gradient persists unfortunately. 01/22: Diffuse infiltrates persist on CXR. Poor diffusion gradient continues. 01/23: CXR with persistent interstitial edema, but improving. G-tube draining normally, no BM yet. Continue diuresis. Finally looks OK on SBTs. 01/24: Improved gas exchange. Will try to extubate. 01/25: Acceptable oxygenation on FiO2 35%. Satisfactory SBT. Will extubate -> failed due to upper airway obstruction/stridor. This is second time for same reason, will need tracheostomy. 01/26: Plan tracheostomy today after second failure to tolerate extubation. I attempted to call patient's son in law, an ENT physician, but he is on vacation camping in [place] and unavailable. wants to go ahead with procedure. 01/27: Persistent SVT. Digoxin started 01/26, add lopressor today iv scheduled. Breathing comfortably via new trach. 01/28: Respiratory failure with pH 7.04, PCO2 115 due to severe bronchospasm. Progressed to full cardiac arrest. I had a lengthy talk with her daughter (in [facility]) and expressed my concern that she was terminally ill at this point after her cardiac arrest earlier today. All questions were answered and she requested a Palliative Care consult. 01/29: Events yesterday noted. Currently awake on the ventilator on a fentanyl drip at 150 an hour. Patient currently DNR. Tolerating TPN. A.m. labs all pending. Tachycardic on epinephrine drip. We'll switch back to Tony-Synephrine. 01/30: Withdrawal care yesterday. Extubated. Currently on Ativan and morphine for comfort measures. 01/31: More awake and alert today. Saturations improved. Hospice consult placed. Pt Condition on Discharge: Stable Discharge Disposition: Hospice/Med Facility Discharge Instructions DIET: Follow Instructions for: As Tolerated, No Restrictions Speech Therapy-Diet Recommends: Other Activities you can perform: Continue Bedrest Martín Andrew MD Jan 31, 2017 10:45
== END 2017-01-31 15:34 | disposition hospice, inpatient (51) | DRG 3 ==
LOC: NEPE 16:44 → NEDA 19:47 → N03B 22:22
PROVIDERS: ADMIT Surgery Surgical Critical Care; ATTEND Surgery Surgical Critical Care
PROC: 0DH60UZ Insertion of Feeding Device into Stomach, Open Approach (ICD-10-PCS; 2017-01-15)
PROC: 0DB80ZZ Excision of Small Intestine, Open Approach (ICD-10-PCS; 2017-01-15)
PROC: 0DN80ZZ Release Small Intestine, Open Approach (ICD-10-PCS; 2017-01-15)
PROC: 30233L1 Transfusion of Nonautologous Fresh Plasma into Peripheral Vein, Percutaneous Approach (ICD-10-PCS; 2017-01-15)
PROC: 30233K1 Transfusion of Nonautologous Frozen Plasma into Peripheral Vein, Percutaneous Approach (ICD-10-PCS; 2017-01-15)
PROC: 02H633Z Insertion of Infusion Device into Right Atrium, Percutaneous Approach (ICD-10-PCS; 2017-01-16)
PROC: B543ZZA Ultrasonography of Right Jugular Veins, Guidance (ICD-10-PCS; 2017-01-16)
PROC: 30233N1 Transfusion of Nonautologous Red Blood Cells into Peripheral Vein, Percutaneous Approach (ICD-10-PCS; 2017-01-16)
PROC: 30233R1 Transfusion of Nonautologous Platelets into Peripheral Vein, Percutaneous Approach (ICD-10-PCS; 2017-01-16)
PROC: 5A1955Z Respiratory Ventilation, Greater than 96 Consecutive Hours (ICD-10-PCS; 2017-01-19)
PROC: 0BH17EZ Insertion of Endotracheal Airway into Trachea, Via Natural or Artificial Opening (ICD-10-PCS; 2017-01-19)
PROC: 02H633Z Insertion of Infusion Device into Right Atrium, Percutaneous Approach (ICD-10-PCS; 2017-01-24)
PROC: 0BH17EZ Insertion of Endotracheal Airway into Trachea, Via Natural or Artificial Opening (ICD-10-PCS; 2017-01-25)
PROC: 5A1955Z Respiratory Ventilation, Greater than 96 Consecutive Hours (ICD-10-PCS; 2017-01-25)
PROC: 0B113F4 Bypass Trachea to Cutaneous with Tracheostomy Device, Percutaneous Approach (ICD-10-PCS; principal; 2017-01-26)
PROC: 0BJ08ZZ Inspection of Tracheobronchial Tree, Via Natural or Artificial Opening Endoscopic (ICD-10-PCS; 2017-01-26)
DX: A41.9 Sepsis, unspecified organism (principal); K63.1 Perforation of intestine (nontraumatic); K65.1 Peritoneal abscess; E43 Unspecified severe protein-calorie malnutrition; Z51.5 Encounter for palliative care; J81.1 Chronic pulmonary edema; R65.21 Severe sepsis with septic shock; R57.1 Hypovolemic shock; K56.5 Intestinal adhesions [bands] with obstruction (postinfection); N17.9 Acute kidney failure, unspecified; E87.0 Hyperosmolality and hypernatremia; J96.02 Acute respiratory failure with hypercapnia; J96.01 Acute respiratory failure with hypoxia; I46.9 Cardiac arrest, cause unspecified; E87.2 Acidosis; I47.1 Supraventricular tachycardia; Z68.1 Body mass index [BMI] 19.9 or less, adult; D62 Acute posthemorrhagic anemia; I48.92 Unspecified atrial flutter; E87.1 Hypo-osmolality and hyponatremia; M32.9 Systemic lupus erythematosus, unspecified; J44.9 Chronic obstructive pulmonary disease, unspecified; E78.5 Hyperlipidemia, unspecified; E03.9 Hypothyroidism, unspecified; I25.10 Atherosclerotic heart disease of native coronary artery without angina pectoris; G89.29 Other chronic pain; M54.9 Dorsalgia, unspecified; R73.9 Hyperglycemia, unspecified; E87.70 Fluid overload, unspecified; J98.01 Acute bronchospasm; K21.9 Gastro-esophageal reflux disease without esophagitis; E87.5 Hyperkalemia; D75.89 Other specified diseases of blood and blood-forming organs; F41.9 Anxiety disorder, unspecified; Z66 Do not resuscitate; Z79.01 Long term (current) use of anticoagulants; Z86.718 Personal history of other venous thrombosis and embolism
CPT/HCPCS: 31500; 31600; 31624; 36430; 36556; 51702; 71010; 74000; 74020; 74177; 80048; 80053; 80076; 80162; 81001; 82140; 82150; 82550; 82552; 82570; 82805; 82947; 82948; 83605; 83690; 83735; 83880; 84100; 84132; 84155; 84300; 84443; 84484; 85007; 85014; 85018; 85025; 85027; 85384; 85610; 85730; 86403; 86850; 86900; 86901; 86920; 86927; 87040; 87070; 87077; 87086; 87147; 87186; 87205; 87641; 88307; 92950; 93005; 93308; 93970; 94002; 94003; 94640; 94664; 94667; 96361; 96374; 96375; C1765; C9113; J0131; J0171; J0282; J0610; J1120; J1160; J1170; J1644; J1650; J1940; J1980; J2060; J2250; J2270; J2370; J2405; J2543; J2710; J2920; J3010; J3480; J7030; J7040; J7050; J7060; J7120; P9016; P9017; P9035; P9045; P9047; Q9967